=== PATIENT | female | born 1965 ===

== ENCOUNTER 2025-07-01 23:29 | Inpatient (IN) | payer OTHER, SELFPAY ==
--- OUTSIDE RECORDS SUMMARY | 2006-01-01 20:00 | XMS_ITS | Continuity of Care Document ---
Author Organization [facility] Address [address] [place] [address] Phone Care Team Providers Care Cooker Meal Name Role Phone Z-Converted, Provider Unavailable Unavailabl e Advance Directives Directive Yes / No Effective Date File Name No Information Encounters Encounter Description Practice Location Reason(s) For Visit Diagnoses Date Provider Providers Copied on Encounter [facility], [address] [place] [address],[place] [address], [place], [place], [id number], tel:[phone] [facility] Chronic hepatitis c without mention of hepatic comaOpioid type dependence, continuous useOtalgia, unspecified Apr- 6 Z-Converted Provider. . [facility], [address] [place] [address],[address], [place], [place], [id number], tel:[phone] Referral of patient without examination or treatment 6 No Information Family History Family Member Type Diagnosis Age At Onset No Information Immunizations Vaccine Date Status Comments HEPATITIS A ADULT administered Source: [place] Immunization Record Payers Payer name Insurance type Covered green party ID Authoriza tion(s) No Information Social History Type Description Quantity Date Captured Comments Sex Female Smoking Status No Information Chief Complaint And Reason For Visit No Information Reason For Referral Reason For Referral No Information History Of Present Illness Encounter Date Complaint History Of Prese nt Illness No Information Functional Status Date Functional Assessmen t No Information Instructions Date Instruction Additional Infor mation No Information Assessments Type Assessment Date No Information Patient Care Teams Name Effective Dates (start - stop) Status Members No Information
--- OUTSIDE RECORDS SUMMARY | 2025-06-30 10:27 | XMS_ITS | Encounter Summary ---
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 caring for herself secondary to severe depressive symptoms and active addiction. Her history is as noted above, she was made aware her cancer had returned (unclear exactly when) and has not been following up with oncology for treatment reporting she is too depressed and too deeply within active addiction to tend to her own physical needs. She was cleared medically, tox positive for benzo, cocaine and fentanyl. She denies benzo use and was administered Ativan in the ED. Evaluation took place in person, she had difficulty tolerating process reporting she was in a lot of physical discomfort related to withdrawal symptoms - specifically abdominal and muscle cramping. She was observed to be alert, oriented to person/place/time/situation. She appears older than stated age, curled up in position covered in blankets, rocking herself, tearful and in significant distress. She is unable to sit herself up on bed, unable to tolerate lights on, remains curled up and tearful throughout. She does her best to answer questions. She makes intermittent eye contact, oftenkeeping eyes shut as she rocks herself. Her speech is clear and not slurred. Thought process is linear, organized. She reports experiencing severe depressive episode in recent months since learning her cancer has returned while she has been in active addiction. She reports feeling no hope for herfuture but with that cries stating I don't want to , she admits fear of but this has notbeen enough to return to her providers for treatment. She describes severe anhedonia, stuck in a loop and can't stop myself no matter how bad it is . She is crying as she discusses her shame and guilt. She reports she is not intentionally refusing treatment, she reports she has simply not had the motivation, ambition or energy to go. She reports, I'm so sick with this and her active addiction has taken over her daily functioning, reports it is most severe it has ever been in all her history. She denies active SI, denies plan or intent. Reports sometimes wishes she would in her sleep, God would take me but does not want to be . She is afraid to , reports fear of painful , fear of what happens after . She denies HI or SIB, denies AVH. There is no evidence of psychosis or real, there is no paranoia or delusional thought content. She presents with fair insight and impaired judgment, she remains in behavioral control. She is appreciative of support, requests hannah- vera and more blankets. She reports she wants treatment, does not feel safe to go home at this time, reports she cannot stop using substances on her own and needs treatment and stabilization. She does not want to harm herself, she wants stabilization. Discussed this case with AOC and attending MD and at this time agree patient requires more support than traditional detox is able to support. She has history of dual-diagnosis treatment, inpatient treatment. At this time her symptoms of anhedonia and self-neglect associated with severe depressive episode and active addition put her in danger. She is voluntary for treatment. She will not be held on Section 12 but recommendation at this time is for inpatient dual-diagnosis treatment - she agrees to sign herself in for this level of care Recommendations: INPATIENT - Dual diagnosis - She is voluntary for treatment. She will not be held on Section 12 but recommendation at this time is for inpatient dual-diagnosis treatment - she agreesto sign herself in for this level of care. She may require a Section 12 for transport only. Intervention and Stabilization Services Requested: n/a Disposition Recommendation: Inpatient Level of Care Patient meets criteria for opioid use disorder (OUD): No Behavioral Health Diagnosis: F43.12 Complex PTSD, F33.2 Major depressive disorder, recurrent severe without psychotic features, F11.20 Opioid use disorder severe, F14.10: Cocaine abuse, uncomplicated Duration: Time Spent (min): 180 Discussed with Journalism Intern: Yes, Journalism Intern Name: ANGELICA Hamlin Discussed with Medical Team: Yes . Anil Elliott MD and RN's Elpidio Signed by: LISA Caal [1] (Not in a hospital admission) [2] [3] [4] No family history on file. documented in this encounter ED Notes * Maxine Carney RN - 07/01/2025 9:31 AM EDT Pt refusing to ambulate or care for herself, repeating, I can't. I can't. And shaking her head back and forth. IV removed * Bianca Alcaraz RN - 07/01/2025 1:50 AM EDT Pt resting w/ eyes closed - no acute distress noted w/ visible chest rise and fall visualized, resps easy and unlabored. Safety maintained w/ continuing safety watch. * Rosie Magdaleno RN - 06/30/2025 9:14 PM EDT This RN and co RN to room to meet patient. Pt resting comfortably with security watch at bedside. Vital signs reassessed and patient medicated per NOV. Pt educated to call with any further needs. * Ying Toney RN - 06/30/2025 5:51 PM EDT MD Meza at bedside, pt cleared to be off continuous monitoring d/t maintaining vital signs without any interventions. Pt refusing to get out of bed, keeps pulling blankets over face and saying pleaseleave me alone . Pt moved to room 30 at this time. Pt able to speak in full sentences throughout this transfer. IV catheter remaining in place. Not requiring security watch. * Ying Toney RN - 06/30/2025 11:26 AM EDT Attempted to obtain blood work at this time. Pt remains restless and extremely fidgety in bed. Pt reporting my body is on fire this RN attempted to roll pt on back multiple times to obtain EKG, pt non compliant and remains in left side position * Caroline Horne RN - 06/30/2025 10:27 AM EDT Pt biba from home after injecting heroin and cocaine. Pt was awake she thought she might pass out asked gus boyfiend to administer Narcan He gave her Narcan 4 mg IN. Pt arrives restless and vomitng being uncooperative. * Shiraz Ocasio MD - 06/30/2025 10:25 AM EDT Date of service: 06/30/2025 EMERGENCY DEPARTMENT ENCOUNTER Evaluated by: Shiraz Ocasio MD 252:38 PM RELEVANT HISTORY 60 y.o. female. Per EMS, boyfriend called 911 because patient had used coke and dope then stated that she might pass out, prompting her boyfriend to administer Narcan 4 mg. Upon EMS arrival, patient was agitated, refusing vital signs, refusing to answer questions. The patient is agitated and a very limited historian. She endorses cocaine and fentanyl use today. She denies alcohol or other drug use. She denies intentionality to hurt or kill herself. Per EMS, she is on Eliquis. Patient denies a fall. Although she reports that her pain is everywhere, she specifically denies having a headache, neck pain, or chest pain. She endorses some dyspnea. Denies any medication allergies. No further history is obtainable at this time. Addendum: Patient reassessed at 11:50 AM: Patient again endorses using cocaine and fentanyl. When asked why she is here, she states because I got Narcan. She reports that she has never required Narcan in the past. I feel so sick. She emphatically denies headache, chest pain, or recent fall or trauma. When asked why she is on Eliquis, she replies I cannot answer your questions right now. Herchief complaint at this time is nausea. PHYSICAL EXAM VITAL SIGNS: ED Triage Vitals Triage Vitals Group BP Pulse Resp Temp SpO2 Weight Height 0-10 Pain Score Munoz-Rhodes FACES Pain Rating Constitutional: Agitated and confused HENT: Airway intact. Eyes: Anicteric. Pupils 4 mm bilaterally and reactive Neck: Full ROM. No midline spinal tenderness Cardiovascular: Normal heart rate. Thorax & Lungs: Unlabored respirations. Normal bilateral breath sounds. abdomen: No peritoneal signs. Abdomen is nontender. Back: Full ROM. Extremities: Normal movement. Skin / Vascular: No cyanosis. Appears jaundiced. Neurologic: Alert and disoriented, confused, speech is minimal but articulate, face symmetric, moves all 4 extremities TESTS: LAB RESULTS: Results for orders placed or performed during the hospital encounter of 06/30/25 (from the past 24 hours) Urinalysis with Reflex to Urine Culture Specimen: Urine, Mid-stream Collection Result Value Ref Range Color, Urine Yellow Mallory, Yellow, Dark Yellow Clarity, Urine Clear Clear pH, Urine 7.5 5.0 - 9.0 Protein, Urine Negative Negative Glucose, Urine Negative Negative, 100 mg/dL Ketone, Urine Negative Negative Bilirubin, Urine Negative Negative Urobilinogen, Urine 1.0 mg/dL 0.2 mg/dL, 1.0 mg/dL Blood, Urine Trace (A) Negative Leukocyte Esterase, Urine Trace (A) Negative Nitrite, Urine Negative Negative Specific [place], Urine 1.017 1.005 - 1.035 White Blood Cells, Urine <2 <=4 /hpf Red Blood Cell, Urine 0-2 <=2 cells/HPF Bacteria Urine None Seen None Seen Squamous Epithelial Cells 3-5/HPF <=5/HPF /HPF Hyaline Cast 0-2 0 - 2 cast/LPF Drug Screen, Urine Result Value Ref Range Amphetamines Screen, Urine Negative Negative Barbiturates Screen, Urine Negative Negative Benzodiazepine Screen, Urine Positive (A) Negative Buprenorphine Screen, Urine Negative Negative Cannabinoids Screen, Urine Negative Negative Cocaine Metabolite Screen, Urine Positive (A) Negative Methadone Screen, Urine Negative Negative Methamphetamine, Urine Negative Negative Opiates Screen, Urine Negative Negative Oxycodone Screen, Urine Negative Negative TCA, Urine Negative Negative Creatinine, Gregory Urine 73.7 No Established Reference Range mg/dL Fentanyl Screen, Urine Positive (A) Negative Tramadol Screen, Urine Negative Negative 6-Aceytlmorphine Screen, Urine Negative Negative Phencyclidine Screen, Urine Negative Negative Fentanyl Screen, Urine Result Value Ref Range Fentanyl Screen, Urine Positive (A) Negative Tramadol Screen, Urine Result Value Ref Range Tramadol Screen, Urine Negative Negative 6-Acetylmorphine Screen, Urine Result Value Ref Range 6-Aceytlmorphine Screen, Urine Negative Negative RADIOLOGY: ECG 12 lead, to be obtained, chest pain Result Date: 06/30/2025 Sinus bradycardia with sinus arrhythmia First degree AV block Low voltage QRS Nonspecific T wave abnormality When compared with ECG of 02-Feb-2024 10:46, Nonspecific T wave abnormality now evident inInferolateral leads Confirmed by Preston Rainey ([id number]) on 06/30/2025 5:51:18 PM XR Chest 1 Vw Portable Result Date: 06/30/2025 EXAM DESCRIPTION: XR CHEST 1 VW PORTABLE. CLINICAL HISTORY: AMS; . COMPARISON: Radiograph 04 September 2019 TECHNIQUE: Portable frontal chest radiograph obtained FINDINGS: The patient is slightly rotated. No focal consolidation. No pneumothorax or pleural effusion. The heart size is mildly enlarged.There is central vascular engorgement. More peripherally there is also a slight patchy opacification in the bilateral lung bases. There is a probable hiatal hernia. Osseous structures are within normal limits. 1. Cardiomegaly and increased central vascular congestion. 2. Possible mild patchy opacities of thebilateral lung bases which could reflect an infiltrate versus additional engorged pulmonary vessels. CT Head WO IV Contrast Result Date: 06/30/2025 EXAM DESCRIPTION: CT HEAD WO CONTRAST CLINICAL HISTORY: 60 y/o F with AMS on Eliquis; COMPARISON: None TECHNIQUE: - Helical axial CT imaging was performed through the head without intravenous contrast. 2D reconstructions were performed. - MIPS Measure #359 Standard nomenclature was used for Dose Index registry submission. MIPS Measure #361 Patient Exposure to Ionizing Radiation was submitted to [place]'s Dose[employer]ise Dose Index Registry. Measure #436 Adaptive Iterative Dose Reduction (AIDR) andNEMA XR 25 DOSE check software, were used to reduce radiation dose to the patient. FINDINGS: Exam is slightly limited by beam hardening and streak artifact. - There is no evidence of acute intracranial hemorrhage, acute to subacute territorial infarction or intracranial mass lesion. - Mild periventricular and subcortical white matter hypodensity is noted in the cerebral hemispheres, which is nonspecific, but may be seen in the setting of chronic small vessel disease. - The ventricles, cisternsand sulci are normal in size and configuration. - There are scattered atherosclerotic calcifications of the carotid siphons and intradural vertebral arteries. - The orbits are unremarkable. - Mild mucosal thickening within the ethmoid air cells. Remainder of the paranasal sinuses and mastoid air cells are clear. - The bones and extracranial soft tissues are unremarkable. No acute intracranial hemorrhage, large territorial infarction, mass effect or midline shift. My EKG interpretation: Sinus bradycardia, ventricular rate 59, first-degree AV block, T wave inversion V5 and V6, T wave flattening in multiple leads elsewhere. No ST segment elevations. QTc 380 by automated measurement, QRS duration 100, no significant R wave in aVR My preliminary radiologic interpretation: No consolidation. If there is pulmonary vascular congestion, it is mild. ASSESSMENT/IMPRESSION: Altered mental status due to acute opiate withdrawal, precipitated by Narcan Considerations include undisclosed toxic ingestion, intracranial hemorrhage in the setting of anticoagulant use, meningitis, encephalitis, ischemic stroke, acute coronary syndrome, other metabolic abnormality, suicidality, noncardiogenic pulmonary edema TREATMENT: Controlled medications administered: Intravenous lorazepam Medications administered: Clonidine, normal saline MDM: Consideration for admission: Chest radiograph with possible mild vascular congestion. Both cardiogenic and noncardiogenic (Narcan induced) etiologies are considered. The patient is without any respiratory symptoms. She is laying flat, not tachypneic, lungs are clear. She is not hypoxemic. Review of non-ED Records Reviewed: Care Everywhere Review of non-ED Records Reviewed Comments: The patient is on Eliquis and methadone, according to the medication list from last year. This is unverified. Diagnostic Tests Considered but not performed: CTA Chest and CT Cspine Prescription Medication Considered but not prescribed Comments: Furosemide Care Affected by Social Determinants of Health: Substance use disorder Independent interpretation of tests: EKG and Chest X-ray Patient reassessed at shift end. She is somnolent but easily arousable to voice. She is now much improved, mental status seems clear to normal, continues to deny intentional OD or other illicit drug ingestion. She has no respiratory symptoms and lungs remain clear. Will attempt ambulation, and if unsteady, we will continue to observe and reassess until she is safe to be discharged. Care of patient transferred to Dr. Elliott at change of shift. Clinical Impression 1. Post traumatic stress disorder (PTSD) [F43.10] 2. MDD (major depressive disorder), recurrent severe, without psychosis (CMS- HCC) [F33.2] 3. Opioid use disorder, severe (CMS-HCC) [F11.20] 4. Suicidal ideation Sahil Meza MD 07/01/25 0716 The patient was signed out to me by Dr. Meza. They are resting comfortably on exam. My final assessment includes that the patient continues to require an inpatient level of care for their psychiatric needs and will be escalated to hospitalization. The patient was discharged from observation status at 2:38 PM on 07/01/25. They have been accepted at [facility]. Section 12 and transfer paperwork completed. The patient is aware of the plan. Shiraz Ocasio MD 07/01/25 1438 * Anil Elliott MD - 06/30/2025 10:25 AM EDT I assumed care of this patient pending reevaluation. Clinically, she now appears sober. As such, I went to discharge her but she told me that she would kill herself if she went back home. As such, I put her onto a section 12 and put in for a behavioral health evaluation. She then recanted the suicidality to multiple nurses and asked to talk to me again. She tells me now that she said this just because she wanted to not go home as she is concerned she may feel worse from withdrawal. She tells rebekah wants to go inpatient for detox. She was still evaluated by behavioral health who feels that she would benefit from a dual diagnosis bed so they are looking for one. The patient was signed out toDr. Deleon. Anil Elliott MD 07/01/25 0222 documented in this encounter Miscellaneous Notes * Psych Progress Note - LISA Ogden - 07/01/2025 3:27 AM EDT Arun to review in AM with [facility] d/t medical concerns. Referral faxed to [facility] for review. Bedsearchto be expanded as necessary. * Care Coordination Note - LISA Caal - 06/30/2025 10:14 PM EDT Notified Arun / Nasim patient requires inpatient dual treatment Completed [facility] boarding notification, sent with eval to [facility] documented in this encounter Plan of Treatment Not on file documented as of this encounter Procedures Procedure Name Priority Date/Time Associated Diagnosis Comments 6-ACETYLMORPHINE SCREEN, URINE STAT 06/30/2025 7:03 PM EDT DRUG SCREEN, URINE STAT 06/30/2025 7: 03 PM EDT TRAMADOL SCREEN, URINE STAT 7:03 PM EDT FENTANYL SCREEN, URINE STAT 7:03 PM EDT URINALYSIS WITH URINE CULTURE REFLEX STAT 06/30/2025 7:03 PM EDT XR PORTABLE CHEST 1 VW STAT 12:[address] HEAD WO CONTRAST STAT 06/30/2025 1 2:37 PM EDT TROPONIN (ALL) STAT 06/30/2025 12:31 PM EDT CBC AND DIFFERENTIAL STAT 06/30/2025 12:31 PM EDT BNP (B-TYPE NATRIURETIC PEPTIDE) Routine 06/30/2025 12:31 PM EDT TOXICOLOGY SCREEN, BLOOD STAT 06/30/2025 12:31 PM EDT YELLOW TOP STAT 06/30/2025 12:31 PM EDT LAVENDER TOP STAT 06/30/2025 12:31 PM EDT MINT GREEN TOP STAT 06/30/2025 12:31 PM EDT RED TOP STAT 06/30/2025 12:31 PM EDT LIGHT BLUE TOP STAT 06/30/2025 12:31 PM EDT RAINBOW DRAW STAT 06/30/2025 12:31 PM EDT CBC AND DIFFERENTIAL STAT 06/30/2025 12:31 PM EDT MAGNESIUM STAT 06/30/2025 12:31 PM EDT COMPREHENSIVE METABOLIC PANEL STAT 06/30/2025 12:31 PM EDT ECG 12-LEAD STAT 06/30/2025 11:38 AM EDT documented in this encounter Results * 6-Acetylmorphine Screen, Urine (06/30/2025 7:03 PM EDT) 6-Aceytlmorphine Screen, Urine Negative Negative [facility]ELL [id number] 06/30/2025 7:23 PM EDT [facility] Comment: 6-acetylmorphine cutoff is 10 ng/mL 6-acetylmorphine Add on order [id number] Opiates and Oxycodone, Urine, Confirmation, if confirmation desired. Results should be used for medical purposes only and not for any legal or employment evaluative purposes. Urine URINE SPECIMEN / Unknown Collection / Unknown 06/30/2025 7:03 PM EDT 06/30/2025 7:06 PM EDT Sahil Meza MD URINE ORDERABLES Final Result Performing Organization Address City/State/[facility] Co de Phone Number [facility] [address] [place] [address], [place] [phone] * Tramadol Screen, Urine (06/30/2025 7:03 PM EDT) Tramadol Screen, Urine Negative Negative CROWELL [id number] 06/30/2025 7:23 PM EDT [facility] Comment: Tramadol cutoff is 200 ng/mL Tramadol. Add-on order [id number] Tramadol Confirmation, Urine, if confirmation desired. Results should be used for medical purposes only and not for any legal or employment evaluative purposes. Urine URINE SPECIMEN / Unknown Collection / Unknown 06/30/2025 7:03 PM EDT 06/30/2025 7:06 PM EDT us Sahil Meza MD URINE ORDERABLES Final Result Performing Organization Address [facility] de Phone Number [address] [address], [place] [phone] * (ABNORMAL) Fentanyl Screen, Urine (06/30/2025 7:03 PM EDT) Fentanyl Screen, Urine Positive(A ) Negative Memoright [id number] 06/30/2025 7:23 PM EDT [facility] Urine URINE SPECIMEN / Unknown Collection / Unknown 06/30/2025 7:03 PM EDT 06/30/2025 7:06 PM EDT us Sahil Meza MD URINE ORDERABLES Final Result Performing Organization Address [facility] Phone Number [address] [address], [place] [phone] * (ABNORMAL) Drug Screen, Urine (06/30/2025 7:03 PM EDT) Amphetamines Screen, Urine Negative Negative 06/30/2025 7:25 PM EDT [facility] Barbiturates Screen, Urine Negative Negative 06/30/2025 7:25 PM EDT [facility] Benzodiazepine Screen, Urine Positive(A) Negative 06/30/2025 7:25 PM EDT [facility] Buprenorphine Screen, Urine Negative Negative 06/30/2025 7:25 PM EDT [facility] Cannabinoids Screen, Urine Negative Negative 06/30/2025 7:25 PM EDT [facility] Cocaine Metabolite Screen, Urine Positive(A) Negative 06/30/2025 7:25 PM EDT [facility] Methadone Screen, Urine Negative Negative 06/30/2025 7:25 PM EDT [facility] Methamphetamine, Urine Negative Negative 06/30/2025 7:25 PM EDT [facility] Opiates Screen, Urine Negative Negative 06/30/2025 7:25 PM EDT [facility] Oxycodone Screen, Urine Negative Negative 06/30/2025 7:25 PM EDT [facility] TCA, Urine Negative Negative 06/30/2025 7:25 PM T [facility] Creatinine, Gregory Urine 73.7 No Established Reference Range mg/dL [facility] [id number] 06/30/2025 7:25 PM T [facility] Fentanyl Screen, Urine Positive(A) Negative [facility]ELL [id number] 06/30/2025 7:25 PM T [facility] Tramadol Screen, Urine Negative Negative [facility] [id number] 06/30/2025 7:25 PM T [facility] 6-Aceytlmorphine Screen, Urine Negative Negative [facility] [id number] 06/30/2025 7:25 PM T [facility] Phencyclidine Screen, Urine Negative Negative 06/30/2025 7:25 PM T [facility] Urine URINE SPECIMEN / Unknown Collection / Unknown 06/30/2025 7:03 PM EDT 06/30/2025 7:[address] [facility] - 06/30/2025 7:25 PM EDT Specimen analysis was performed without chain of custody handling. Urine drug screen results should be used for medical purposes only and not for any legal or employment evaluative purposes. Amphetamines cutoff is 500 ng/mL. Barbiturates cutoff is 200 ng/mL. Benzodiazepines cutoff is 150 ng/mL. Buprenorphine cutoff is 300 ng/mL. Cannabinoids cutoff is 50 ng/mL. Cocaine cutoff is 150 ng/mL. Methadone cutoff is 200 ng/mL. Methamphetamine cutoff is 500 ng/ml Opiates cutoff is 100 ng/mL. Oxycodone cutoff is 100 ng/mL. Phencyclidine (PCP) cutoff is 25 ng/mL TCA cutoff is 300 ng/mL Urine results are presumptive based only on screening methods and have not been confirmed by a second method. These results should be used only by physicians to render diagnosis, treatment, or to monitor progress of medical conditions. The assay is not intended to monitor compliance or absinence. Thresholds are established by the test boilermaker industrial boilers. Drug levels below thresholds will be reported as negative. This is an antibody-antigen methods screening test and has the potential for false positive results caused by other drugs, medications and supplements with similar structures, if results are discordant clinically. us Sahil Mzea MD URINE ORDERABLES Final Result [facility] [address] [place] [address], [place] [phone] * (ABNORMAL) Urinalysis with Reflex to Urine Culture (06/30/2025 7:03 PM EDT) Color, Urine Yellow Mallory, Yellow, Dark Yellow 06/30/2025 7:27 PM EDT [facility] Clarity, Urine Clear Clear 06/30/2025 7:27 PM EDT [facility] pH, Urine 7.5 5.0 - 9.0 06/30/2025 7:27 PM EDT [facility] Protein, Urine Negative Negative 06/30/2025 7:[facility] Glucose, Urine Negative Negative, 100 mg/dL 06/30/2025 7:27 PM EDT [facility] Ketone, Urine Negative Negative 06/30/2025 7:27 PM EDT [facility] Bilirubin, Urine Negative Negative 06/30/2025 7:27 PM EDT [facility] Urobilinogen, Urine 1.0 mg/dL 0.2 mg/dL, 1.0 mg/dL 06/30/2025 7:27 [facility] [facility] Blood, Urine Trace(A) Negative 06/30/2025 7:27 [facility] Leukocyte Esterase, Urine Trace(A) Negative 06/30/2025 7:27 PM EDT [facility] Nitrite, Urine Negative Negative 06/30/2025 7:27 PM EDT [facility] Specific [place], Urine 1.017 1.005 - 1.035 06/30/2025 7:27 PM EDT [facility] White Blood Cells, Urine <2 <=4 /hpf 06/30/2025 7:27 PM [facility] Red Blood Cell, Urine 0-2 <=2 cells/HPF 06/30/2025 7:27 PM [facility] Bacteria Urine None Seen None Seen 06/30/2025 7:27 PM EDT [facility] Squamous Epithelial Cells 3-5/HPF <=5/HPF /HPF 06/30/2025 7:27 PM EDT [facility] Hyaline Cast 0-2 0 - 2 cast/LPF 06/30/2025 7:27 PM EDT [facility] Urine MID-STREAM URINE SPECIMEN / Unknown Collection / Unknown 06/30/2025 7:03 PM EDT 06/30/2025 7:06 PM EDT Sahil Meza MD URINE ORDERABLES Final Result [facility] [address] [place] [address], [place] [phone] * XR Chest 1 Vw Portable (06/30/2025 12:58 PM EDT) Anatomical Region Laterality Modality Chest Digital Radiogra phy 06/30/2025 12:5 9 PM EDT Impressions 06/30/2025 1:02 PM EDT 1. Cardiomegaly and increased central vascular congestion. 2. Possible mild patchy opacities of the bilateral lung bases which could reflect an infiltrate versus additional engorged pulmonary vessels. Narrative 06/30/2025 1:02 PM EDT EXAM DESCRIPTION: XR CHEST 1 VW PORTABLE. CLINICAL HISTORY: AMS; . COMPARISON: Radiograph 04 September 2019 TECHNIQUE: Portable frontal chest radiograph obtained FINDINGS: The patient is slightly rotated. No focal consolidation. No pneumothorax or pleural effusion. The heart size is mildly enlarged. There is central vascular engorgement. More peripherally there is also a slight patchy opacification in the bilateral lung bases. There is a probable hiatal hernia. Osseous structures are within normal limits. Procedure Note Andry Samson MD - 06/30/2025 EXAM DESCRIPTION: XR CHEST 1 VW PORTABLE. CLINICAL HISTORY: AMS; . COMPARISON: Radiograph 04 September 2019 TECHNIQUE: Portable frontal chest radiograph obtained FINDINGS: The patient is slightly rotated. No focal consolidation. No pneumothorax or pleural effusion. The heart size is mildly enlarged. There is central vascular engorgement. More peripherally there is also a slight patchy opacification in the bilateral lung bases. There is a probable hiatal hernia. Osseous structures are within normal limits. IMPRESSION: 1. Cardiomegaly and increased central vascular congestion. 2. Possible mild patchy opacities of the bilateral lung bases which could reflect an infiltrate versus additional engorged pulmonary vessels. us Sahil Meza MD IMG DIAGNOSTIC IMAGING ORDERABLE S Final Result * CT Head WO IV Contrast (06/30/2025 12:37 PM EDT) Anatomical Region Laterality Modality Head Computed Tomogra phy 06/30/2025 12:3 9 PM EDT Impressions 06/30/2025 12:42 PM EDT No acute intracranial hemorrhage, large territorial infarction, mass effect or midline shift. Narrative 06/30/2025 12:42 PM EDT EXAM DESCRIPTION: CT HEAD WO CONTRAST CLINICAL HISTORY: 60 y/o F with AMS on Eliquis; COMPARISON: None TECHNIQUE: - Helical axial CT imaging was performed through the head without intravenous contrast. 2D reconstructions were performed. - MIPS Measure #359 Standard nomenclature was used for Dose Index registry submission. MIPS Measure #361 Patient Exposure to Ionizing Radiation was submitted to [place] Dose Index Registry. Measure #436 Adaptive Iterative Dose Reduction (AIDR) and NEMA XR 25 DOSE check software, were used to reduce radiation dose to the patient. FINDINGS: Exam is slightly limited by beam hardening and streak artifact. - There is no evidence of acute intracranial hemorrhage, acute to subacute territorial infarction or intracranial mass lesion. - Mild periventricular and subcortical white matter hypodensity is noted in the cerebral hemispheres, which is nonspecific, but may be seen in the setting of chronic small vessel disease. - The ventricles, cisterns and sulci are normal in size and configuration. - There are scattered atherosclerotic calcifications of the carotid siphons and intradural vertebral arteries. - The orbits are unremarkable. - Mild mucosal thickening within the ethmoid air cells. Remainder of the paranasal sinuses and mastoid air cells are clear. - The bones and extracranial soft tissues are unremarkable. Procedure Note Lv Jarrell DO - 06/30/2025 EXAM DESCRIPTION: CT HEAD WO CONTRAST CLINICAL HISTORY: 60 y/o F with AMS on Eliquis; COMPARISON: None TECHNIQUE: - Helical axial CT imaging was performed through the head without intravenous contrast. 2D reconstructions were performed. - [facility] Measure #359 Standard nomenclature was used for Dose Index registry submission. [facility] Measure #361 Patient Exposure to Ionizing Radiation was submitted to [place]'s Dose[employer] Dose Index Registry. Measure #436 Adaptive Iterative Dose Reduction (AIDR) and NEMA XR 25 DOSE check software, were used to reduce radiation dose to the patient. FINDINGS: Exam is slightly limited by beam hardening and streak artifact. - There is no evidence of acute intracranial hemorrhage, acute to subacute territorial infarction or intracranial mass lesion. - Mild periventricular and subcortical white matter hypodensity is noted in the cerebral hemispheres, which is nonspecific, but may be seen in the setting of chronic small vessel disease. - The ventricles, cisterns and sulci are normal in size and configuration. - There are scattered atherosclerotic calcifications of the carotid siphons and intradural vertebral arteries. - The orbits are unremarkable. - Mild mucosal thickening within the ethmoid air cells. Remainder of the paranasal sinuses and mastoid air cells are clear. - The bones and extracranial soft tissues are unremarkable. IMPRESSION: No acute intracranial hemorrhage, large territorial infarction, mass effect or midline shift. us Sahil Meza MD IMG CT ORDERABLES Final Result * BNP (B-Type Natriuretic Peptide) (06/30/2025 12:31 PM EDT) Beta-Natriureti c Peptide (BNP) <10 <120 pg/mL CROWELL [id number] 06/30/2025 3:10 PM EDT [facility] Comment:BNP may be falsely e levated in patients on the medication Entresto. For these patients, NT-proBNP, [id number], will more reliably reflect the status of therapy. Blood PERIPHERAL BLOOD SPECIMEN / Unknown Venipuncture / Unknown 06/30/2025 12:31 PM EDT 06/30/2025 12:33 PM EDT us Sahil Meza MD LAB BLOOD ORDERABLES Final Resul t [facility] [address] [place] [address], [place] [phone] * Gold Top (06/30/2025 12:31 PM EDT) Gold Top Tube Received 06/30/2025 2:02 PM EDT [facility] Blood PERIPHERAL BLOOD SPECIMEN / Unknown Venipuncture / Unknown 06/30/2025 12:31 PM EDT 06/30/2025 12:33 PM EDT us Sahil Meza MD LAB BLOOD ORDERABLES Final Resul t [facility] [address] [place] [address], [place] [phone] * Lavender Top (06/30/2025 12:31 PM EDT) Lav Top Tube Received 06/30/2025 2:02 PM EDT [facility] Blood PERIPHERAL BLOOD SPECIMEN / Unknown Venipuncture / Unknown 06/30/2025 12:31 PM EDT 06/30/2025 12:33 PM EDT us Sahil Meza MD LAB BLOOD ORDERABLES Final Resul t Performing Organization Address City/[facility]/ZIP Co de Phone Number [address] [address], [place] [phone] * Mint Green Top (06/30/2025 12:31 PM EDT) Pathologist [facility] PST Tube Received 06/30/2025 2:02 PM EDT [facility] Blood PERIPHERAL BLOOD SPECIMEN / Unknown Venipuncture / Unknown 06/30/2025 12:31 PM EDT 06/30/2025 12:32 PM EDT us Sahil Meza MD LAB BLOOD ORDERABLES Final Resul t Performing Organization Address City/[facility]/ZIP Co de Phone Number [facility] [address] [place] [address], [place] [phone] * Red Top (06/30/2025 12:31 PM EDT) Red Top Tube Received 06/30/2025 2:02 PM EDT [facility] Blood PERIPHERAL BLOOD SPECIMEN / Unknown Venipuncture / Unknown 06/30/2025 12:31 PM EDT 06/30/2025 12:33 PM EDT us Sahil Meza MD LAB BLOOD ORDERABLES Final Resul t Performing Organization Address City/[facility]/ZIP Co de Phone Number [facility] [address] [place] [address], [place] [phone] * Blue Top (06/30/2025 12:31 PM EDT) Pathologist [facility] Blue Top Tube Received 06/30/2025 2:02 PM EDT [facility] Blood PERIPHERAL BLOOD SPECIMEN / Unknown Venipuncture / Unknown 06/30/2025 12:31 PM EDT 06/30/2025 12:33 PM EDT us Sahil Meza MD LAB BLOOD ORDERABLES Final Resul t Performing Organization Address [facility]/ZIP Co de Phone Number [facility] [address] [place] [address], [place] [phone] * (ABNORMAL) CBC and Differential (06/30/2025 12:31 PM EDT) Pathologist [facility] WBC 6.45 4.00 - 11.00 K/uL 06/30/2025 12:42 PM EDT [facility] RBC 4.40 4.00 - 5.20 M/uL 06/30/2025 12:42 PM EDT [facility] Hemoglobin 9.0(L) 12.0 - 15.0 g/dL 06/30/2025 12:42 PM EDT [facility] Hematocrit 29.6(L) 36.0 - 45.0 % 06/30/2025 12:42 PM EDT [facility] MCH 20.5(L) 23.0 - 37.0 pg 06/30/2025 12:42 PM EDT [facility] MCHC 30.4 29.0 - 38.0 g/dL 06/30/2025 12:42 PM [facility] MCV 67(L) 82 - 98 fL 06/30/2025 12:42 PM [facility] RDW 15.4(H) 11.5 - 15.0 % 06/30/2025 12:42 PM [facility] Platelet Count 292 150 - 450 K/uL 06/30/2025 12:42 PM [facility] MPV 8.6 8.0 - 14.0 fL 06/30/2025 12:42 PM [facility] Neutrophil 85.5 % 06/30/2025 12:42 PM [facility] Lymphocyte 8.8 % 06/30/2025 12:42 PM [facility] Monocyte 4.2 % 06/30/2025 12:42 PM [facility] Eosinophil 0.5 % 06/30/2025 12:42 PM [facility] Basophil 0.5 % 06/30/2025 12:42 PM [facility] Immature Granulocyte ([place]ap[place], Myelo, Promyelocyte) 0.5 % 06/30/2025 12:42 PM [facility] Absolute Neutrophil Count 5.52 1.50 - 7.70 K/uL 06/30/2025 12:42 PM [facility] Absolute Immature Granulocyte ([place]ap[place], Myelo, Promyelocyte) 0.03 0.00 - 0.09 K/uL 06/30/2025 12:42 PM [facility] Absolute Lymphocyte Count 0.57(L) 1.00 - 5.00 K/uL 06/30/2025 12:42 PM [facility] Absolute Monocyte Count 0.27 0.10 - 1.00 K/uL 06/30/2025 12:42 PM [facility] Absolute Eosinophil Count 0.03 0.00 - 0.70 K/uL 06/30/2025 12:42 PM [facility] Absolute Basophil Count 0.03 0.00 - 0.20 K/uL 06/30/2025 12:42 PM [facility] Blood PERIPHERAL BLOOD SPECIMEN / Unknown Venipuncture / Unknown 06/30/2025 12:31 PM EDT 06/30/2025 12:33 PM EDT us Sahil Meza MD LAB BLOOD ORDERABLES Final Resul t Performing Organization Address [facility] de Phone Number [facility] [address] [place] [address], [place] [phone] * (ABNORMAL) Toxicology Screen, Blood (06/30/2025 12:31 PM EDT) [facility] Acetaminophen Result,Blood <3(L) Therapuetic Range 10-30 ug/mL [place] [id number] 06/30/2025 1:15 PM EDT [facility] Alcohol <10 <10 mg/dL [address] 06/30/2025 1:15 PM EDT [facility] Salicylate Level, Blood <5(L) 15 - <30 mg/dL [address] 06/30/2025 1:15 PM EDT [facility] Blood PERIPHERAL BLOOD SPECIMEN / Unknown Venipuncture / Unknown 06/30/2025 12:31 PM EDT 06/30/2025 12:33 PM EDT us Sahil Meza MD LAB BLOOD ORDERABLES Final Resul t Performing Organization Address [facility] de Phone Number [facility] [address] [place] [address], [place] [phone] * Troponin (once) (06/30/2025 12:31 PM EDT) [facility] Troponin I <0.01 <0.08 ng/mL [place] [id number] 06/30/2025 1:15 PM EDT [facility] Comment: The troponin upper reference value was set at 0.08 ng/mL by pat with the associated machine tool builder after concurrent and retrospective clinical review. New reporting guidelines were published on 06/02/2014 (see below). Our value of 0.08 ng/dL exceeds the 99th percentile and 3 SD of criteria #1 and 2, and therefore, these criteria have been met. Because an elevation in the initial troponin value could be due to conditions other than acute myocardial necrosis, there should be a serial increase or decrease of 20% or more on a subsequent troponin specimen. [place] EA, et al. 2014 AGA/ACC NSTE-ACS Guideline 1. A troponin value above the 99th percentile of the upper reference level is required. Additionally, evidence for a serial increase or decrease >=20% is required if the initial value is elevated (21,178). 2. For any troponin values below or close to the 99th percentile, evidence for acute myocardial necrosis is indicated by a change of >=3 standard deviations of the variation around the initial value as determined by the individual laboratory (21,179). 3. Clinical laboratory reports should indicate whether significant changes in the cardiac troponin values for the particular assay has occurred. Blood PERIPHERAL BLOOD SPECIMEN / Unknown Venipuncture / Unknown 06/30/2025 12:31 PM EDT 06/30/2025 12:32 PM EDT us Sahil Meza MD LAB BLOOD ORDERABLES Final Resul t Performing Organization Address [facility] de Phone Number [address] [address], [place] [phone] * Magnesium (06/30/2025 12:31 PM EDT) Pathologist [facility] Magnesium, Blood 1.8 1.8 - 2.4 mg/dL CROWELL [id number] 06/30/2025 1:13 PM EDT [facility] Blood PERIPHERAL BLOOD SPECIMEN / Unknown Venipuncture / Unknown 06/30/2025 12:31 PM EDT 06/30/2025 12:32 PM EDT us Sahil Meza MD LAB BLOOD ORDERABLES Final Resul t Performing Organization Address [facility] de Phone Number [facility] [address] [place] [address], [place] [phone] * (ABNORMAL) Comprehensive Metabolic Panel (06/30/2025 12:31 PM EDT) Pathologist [facility] Sodium 138 134 - 144 mmol/L CROWELL [id number] 06/30/2025 1:13 PM EDT [facility] Potassium 3.5 3.2 - 5.1 mmol/L [place] [id number] 06/30/2025 1:13 PM [facility] Chloride 101 97 - 109 mmol/L [address] 06/30/2025 1:13 PM [facility] Total CO2/Bicarbonate 28 20 - 32 mmol/L [address] 06/30/2025 1:13 PM [facility] Anion Gap 9 5 - 15 mmol/L [address] 06/30/2025 1:13 PM [facility] Anion Gap [address] 06/30/2025 1:13 PM [facility] BUN 13 7 - 20 mg/dL [address] 06/30/2025 1:13 PM [facility] Creatinine, Blood 0.71 0.60 - 1.10 mg/dL [address] 06/30/2025 1:13 PM [facility] Glucose, Blood 86 70 - 110 mg/dL [address] 06/30/2025 1:13 PM [facility] Calcium 8.8 8.5 - 10.5 mg/dL [address] 06/30/2025 1:13 PM [facility] Total Protein 8.2 6.1 - 8.2 g/dL [address] 06/30/2025 1:13 PM [facility] Albumin, Blood 3.8 3.4 - 5.0 g/dL [address] 06/30/2025 1:13 PM [facility] Globulin Result 4.4(H) 2.0 - 4.0 g/dL [address] 06/30/2025 1:13 PM [facility] AST (SGOT) 18 15 - 37 U/L [address] 06/30/2025 1:13 PM [facility] ALT (SGPT) 10 0 - 55 U/L [address] 06/30/2025 1:13 PM [facility] Alkaline Phosphatase 64 40 - 150 U/L [address] 06/30/2025 1:13 PM [facility] Total Bilirubin 0.9 0.2 - 1.2 mg/dL [address] 06/30/2025 1:13 PM [facility] Estimated GFR(CKD-EPI) 97 >=60 mL/min/BSA [address] 06/30/2025 1:13 PM EDT [facility] Blood PERIPHERAL BLOOD SPECIMEN / Unknown Venipuncture / Unknown 06/30/2025 12:31 PM EDT 06/30/2025 12:32 PM EDT us Sahil Meza MD LAB BLOOD ORDERABLES Final Resul t Performing Organization Address [facility] de Phone Number [facility] [address] [place] [address], [place] [phone] * ECG 12 lead, to be obtained, chest pain (06/30/2025 11:38 AM EDT) [facility] Ventricular Heart Rate 59 BPM EKG WIN QRSD Interval 100 ms EKG WIN QT Interval 384 ms EKG WIN QTC Interval 380 ms EKG WIN R Davis 47 degrees EKG WIN T Wave Davis 70 degrees EKG WIN 06/30/2025 11:3 8 AM EDT 06/30/2025 5:51 PM EDT Narrative EKG WIN - 06/30/2025 5:51 PM EDT Sinus bradycardia with sinus arrhythmia First degree AV block Low voltage QRS Nonspecific T wave abnormality When compared with ECG of 02-Feb-2024 10:46, Nonspecific T wave abnormality now evident in Inferolateral leads Confirmed by Preston Rainey ([id number]) on 06/30/2025 5:51:18 PM Procedure Note Preston Rainey MD - 06/30/2025 Sinus bradycardia with sinus arrhythmia First degree AV block Low voltage QRS Nonspecific T wave abnormality When compared with ECG of 02-Feb-2024 10:46, Nonspecific T wave abnormality now evident in Inferolateral leads Confirmed by Preston Rainey ([id number]) on 06/30/2025 5:51:18 PM us Sahil Meza MD ECG ORDERABLES Final Result Performing Organization Address [facility] Co de Phone Number EKG WIN [address] [place] [address] documented in this encounter Visit Diagnoses Diagnosis Post traumatic stress disorder (PTSD) [F43.10]- Primary MDD (major depressive disorder), recurrent severe, without psychosis (CMS-HCC) [F33.2] Opioid use disorder, severe ([facility]) [F11.20] Suicidal ideation documented in this encounter Administered Medications Inactive Administered Medications - up to 3 most recent administrations Medication Order MAR Action Action Date Dose Rate Site 0.9% sodium chloride (NS) BOLUS 1,000 mL 1,000 mL, Intravenous, Once, On Sun06/30/25 at 1036, For 1 dose, STAT, Administer over 1 Hours New Bag 06/30/2025 1:04 PM EDT 1,000 mL 1000 mL/hr cloNIDine (CATAPRES) tablet 0.1 mg 0.1 mg, Oral, Once, 1 dose, On Sun06/30/25 at 1134 Given 06/30/2025 12:20 PM EDT 0.1 mg cloNIDine (CATAPRES) tablet 0.1 mg 0.1 mg, Oral, Once, 1 dose, On Sun06/30/25 at 2035 Given 06/30/2025 9:22 PM EDT 0.1 mg cloNIDine (CATAPRES) tablet 0.1 mg 0.1 mg, Oral, Once, 1 dose, On Sun06/30/25 at 2357 Given 07/01/2025 12:06 AM EDT 0.1 mg ketorolac (TORADOL) injection 15 mg 15 mg, Intravenous, Once, On Sun06/30/25 at 2357, For 1 dose, If given IV, administer over a minimum of 15 seconds. If ordered PRN for pain, the patient may request administration of a different (less potent) prescribed medication, or a lower prescribed dose of the same medication. Given 07/01/2025 12:06 AM EDT 15 mg LORazepam (ATIVAN) injection 1 mg 1 mg, Intramuscular, Once, 1 dose, On Sun06/30/25 at 1035 Given 06/30/2025 10:35 AM EDT 1 mg Right Ventrogluteal documented in this encounter Active and Recently Administered Medications Times are shown in EDT. Scheduled Medication Order 06/29/2025 06/30/2025 07/01/2025 0.9% sodium chloride (NS) BOLUS 1,000 mL (COMPLETED) 1,000 mL, Intravenous, Once, On Sun06/30/25 at 1036, For 1 dose, STAT, Administer over 1 Hours 1304 (New Bag - Provider: Ying Toney, RN)1430 (Stopped - Provider: Ying Toney RN) acetaminophen (TYLENOL) tablet 975 mg 975 mg, Oral, Once, 1 dose, On Sun06/30/25 at 2357 0017 (Not Given - Provider: Bianca Alcaraz RN - Reason: Patient Refused) cloNIDine (CATAPRES) tablet 0.1 mg (COMPLETED) 0.1 mg, Oral, Once, 1 dose, On Sun06/30/25 at 1134 1220 (Given - Provider: Ying Toney RN) cloNIDine (CATAPRES) tablet 0.1 mg (COMPLETED) 0.1 mg, Oral, Once, 1 dose, On Sun06/30/25 at 2035 2122 (Given - Provider: Roise Magdaleno RN - Comment: Barcode unreadable on rover, verifed with TAYLOR Valenzuela) cloNIDine (CATAPRES) tablet 0.1 mg (COMPLETED) 0.1 mg, Oral, Once, 1 dose, On Sun06/30/25 at 2357 0006 (Given - Provid er: Bianca Alcaraz RN) ketorolac (TORADOL) injection 15 mg (COMPLETED) 15 mg, Intravenous, Once, On Sun06/30/25 at 2357, For 1 dose, If given IV, administer over a minimum of 15 seconds. If ordered PRN for pain, the patient may request administration of a different (less potent) prescribed medication, or a lower prescribed dose of the same medication. 0006 (Given - Provid er: Bianca Alcaraz RN) LORazepam (ATIVAN) injection 1 mg (COMPLETED) 1 mg, Intramuscular, Once, 1 dose, On Sun06/30/25 at 1035 1035 (Given - Provider: Caroline Horne, TAYLOR)1038 (Override Pull - Provider: Caroline Horne, TAYLOR) documented in this encounter Care Teams Document Review Specialist Relationship Specialty Start Date End Date Mirella Bobby MD [address] [place] [address] PCP - General Internal Medicine 02/02/24 documented as of this encounter
--- OUTSIDE RECORDS SUMMARY | 2025-07-01 23:37 | XMS_ITS ---
Author Organization [employer] [facility] iance Address [address] [place] [address] Care Team Providers Care Casting Tester Name Role Phone None Unavailable Unavailable Raisa Merritt MD Primary Care Provider [phone] Active Problems Problem Noted Date Diagnosed Date Hypomagnesemia 12/28/2021 Anemia, unspecified 12/27/2021 Lung nodule 12/14/2021 Overview (12/14/2021): 10/12/2021 CT Neck: 3 mm right upper lobe pulmonary nodule, unchanged from recent chest CTA. If the patient is high risk for lung cancer recommend an optional chest CT in 12 months per the Fleischner guidelines. Smoking trying to quit 11/25/2021 Overview (01/09/2022): TTP Referred for outreach 07/2021 SH Hepatitis C antibody test positive 11/15/2021 Squamous cell carcinoma of base of tongue 2021 Cancer Staging:Clinical stage from 11/15/2021:Stage I(cT1, cN1, cM0, p16+) - Signed by Felton Rodriguez MD on 11/15/2021 Squamous cell carcinoma of head and neck 022 Assessment & Plan (10/26/2021 9:20 AM EST): Diagnosed officially 10/25/2021 after FNA of enlarged lymph node/lump on the anterior neck. long-term current use of anticoagulant therapy 0 10/04/2021 Overview (10/04/2021): PE 08/02/21 - on Eliquis. 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 Unclear if provoked or unprovoked. Messaged PCP to send e-consult to heme to review duration. Due to significant delays in reaching pt (no-showed x4) - initial DOAC education provided today 10/04/21 - Patrick Gentile, PharmD. Anterior cervical lymphadenopathy 08/02/2021 Pulmonary embolism 07/28/2021 Assessment & Plan (10/26/2021 9:21 AM EST): 10/26/21 Previously thought to be 2x unprovoked, now maybe due to underlying malignancy (head and neck SCC) Heroin dependence 07/22/2012 Depression 07/22/2012 Skin disorder 04/07/2010 Current Treatment and Therapy Plans Lung, Gastric: CARBOplatin, PAClitaxel weekly during RTX* Plan Start Date: 11/20/2021 Plan Provider:Felton Rodriguez MD Linked Problems Squamous cell carcinoma of h ead and neckSquamous cell carcinoma of base of tongue (HCC) Treatment Medications CARBOplatin (PARAPLATIN) raf mo infusion (by mg/m2)dexamethasone (DECADRON)PACLItaxel (taxol)PACLItaxel (TAXOL) chemo infusion Past Treatment and Therapy Plans No past plan information found. Lifetime Dose Tracking * Chemical Lifetime Dose Automatic Entry Manual Entr y DLP 812 mGy-cm. 812 mGy-cm. 0 mGy-cm. Radiation Effective Dose 15.5 mGy 15.5 mGy 0 m Gy CTDIVol Maximum 37 mGy 37 mGy 0 mGy CTDIVol Minimum 28.8 mGy 28.8 mGy 0 mGy
--- OUTSIDE RECORDS SUMMARY | 2025-07-01 23:37 | XMS_ITS | Encounter Summary ---
Author Organization [employer] iance Address [address] [place] [address] Care Team Providers Care Real Estate Rental Agent Name Role Phone None Unavailable Unavailable Raisa Merritt MD Primary Care Provider [phone] Encounter Details Date Type Department Care Team (Late st Contact Info) Description 04/21/[address] [place], [place] [id number] Raisa Merritt MD [address] [place] [id number] Social History Tobacco Use Types Packs/Day Years Used Date Smoking Tobacco: Every Day Cigarettes 2 5 Smokeless Tobacco: Never Alcohol Use Standard Drinks/Week Comments No 0 (1 standard drink = 0.6 oz pur e alcohol) pt denies alcohol use. Comments No Sex and Gender Information Value Date Recorded Sex Assigned at Not on file Legal Sex Female 10:28 PM EDT Gender Identity Female 09/13/2023 11:44 AM EST Sexual Orientation Straight 09/13/2023 11 :44 AM EST documented as of this encounter Functional Status * (RETIRED) Are you deaf or do you have difficulty hearing? Answer Date of Assessment Author No 07/27/2021 2:11 PM Genna Espinoza RN * (RETIRED) Are you blind or do you have difficulty seeing? Answer Date of Assessment Author No 07/27/2021 2:11 PM Genna Espinoza RN * (RETIRED) Do you have difficulty walking or climbing stairs? Answer Date of Assessment Author No 07/27/2021 2:11 PM Genna Espinoza RN * (RETIRED) Do you have difficulty dressing or bathing? Answer Date of Assessment Author No 07/27/2021 2:11 PM Genna Espinoza RN * (RETIRED) Because of a physical, mental, or emotional condition, do you have difficulty doing errands such as visiting a doctor's office or shopping? Answer Date of Assessment Author No 07/27/2021 2:11 PM Genna Espinoza RN documented as of this encounter Mental Status * (RETIRED) Because of a physical, mental, or emotional condition, do you have serious difficulty concentrating, remembering, or making decisions? Answer Entry Date Author No 07/27/2021 2:11 PM Genna Espinoza RN documented in this encounter Miscellaneous Notes * Telephone Encounter - Aleisha Wiggins - 04/21/2025 3:46 PM EDT I have attempted to contact this patient by phone with the following results: no answer. If patient calls back, please assist this patient with scheduling the following: In person or televisit per patient preference, for CPAP issue, time frame: next available, with PCP, if appointment not available: Schedule with alternate provider documented in this encounter Plan of Treatment Not on file documented as of this encounter Goals Goal Patient Goal Type Associated Problems Recent Progress Patient-Stated? Author Quit smoking / using tobacco Lifestyle (Healthcare Team Goals) No Joselin Romero documented as of this encounter Visit Diagnoses Not on filedocumented in this encounter Care Teams Real Estate Rental Agent Relationship Specialty Start Date End Date None PCP - Insurance PCP 06/10/18 Raisa Merritt MD [address] [place] [address], [place] [address] PCP - General Family Medicine 02/13/24 documented as of this encounter
--- OUTSIDE RECORDS SUMMARY | 2025-07-01 23:37 | XMS_ITS | Encounter Summary ---
Author Organization [facility] iance Address [address] [place] [address] Care Team Providers Care Material Requirements Worker Name Role Phone None Unavailable Unavailable Mile Kitchen MD Primary Care Provider [phone] Raisa Merritt MD Primary Care Provider [phone] Encounter Details Date Type Department Care Team (Late st Contact Info) Description 12/02/2021 Telephone [facility] - [facility] [address] [facility] - [address]nd [place] [address] Danisha Patricio, PharmD [address] [place] [address] Social History Tobacco Use Types Packs/Day Years [...] Orientation Straight 09/13/2023 11 :44 AM EST COVID-19 Exposure Response Date Recorded In the last 10 days, have yo u been in contact with someone who was confirmed or suspected to have Coronavirus/COVID-19? No / Unsure 12/05/2021 8:27 AM EDT documented as of this encounter Functional Status [...] encounter Miscellaneous Notes * Telephone Encounter - Danisha Polk PharmD - 12/02/2021 1:09 PM EDT Patient was available for preinfusion call today. Stated that she is doing well, however feeling very fatigued. Will be able to present to her next infusion appointment on 12/05/21. Has enough pre-infusion meds at home, but out of lorazepam (pended new rx to provider). Will continue to monitor and follow-up with patient following infusion. documented in this encounter Plan of Treatment Not on file documented as of this encounter Visit Diagnoses Not on filedocumented in this encounter Additional Health Concerns Infection Onset Date Last Indicated Resolved Time Rule out RSV 01/02/2022 01/02/2022 01/02/2022 5:32 PM EDT Rule out Influenzae 01/02/2022 01/02/2022 01/03/20 5:32 PM EDT Rule out COVID-19 01/02/2022 01/02/2022 01/02/2022 5:32 PM EDT Rule out COVID-19 04/05/2022 04/05/2022 04/06/2022 7:16 AM EDT documented as of this encounter Care Teams Material Requirements Worker Relationship Specialty Start Date End Date None PCP - Insurance PCP 06/10/18 Mile Kitchen MD [address] [place] [id number] PCP - General Family Medicine 08/02/21 02/12/24 Raisa Merritt MD [address] [place] [address] PCP - General Family Medicine 02/13/24 documented as of this encounter
--- OUTSIDE RECORDS SUMMARY | 2025-07-01 23:37 | XMS_ITS | Clinical Summary ---
Author Organization [employer] [facility] iance Address [address] [place] [address] Care Team Providers Care Sewer Hand Name Role Phone None Unavailable Unavailable Raisa Merritt MD Primary Care Provider [phone] Allergies No known active allergies Medications methadone (METHADOSE) 40 MG disintegrating tablet Take 100 mg by mouth in the morning. Fills at [facility]. Active Multiple Vitamin (MULTIVITAMIN) tabletIndications :Squamous cell carcinoma of head and neck Take 1 tablet by mouth in the morning. 90 tablet 3 022 Active lidocaine (XYLOCAINE) 2 % solution 5 mLs 022 Active sucralfate (CARAFATE) 1 GM/10ML suspension Take 1 g by mouth Active DULoxetine (CYMBALTA) 30 MG capsule Take 30 mg by mouth 024 Active OTHER MEDICATIONIndicat ions:Abnormal loss of weight,Squamous cell carcinoma of head and neck,Poor nutrition Nutritional Supplements Type: Ensure (220 alberto.) For use as directed 2 times per day DX: Squamous cell carcinoma of tongue ICD10:C01 Estimated body mass index is 28.88 kg/m as calculated from the following: Height as of 09/13/23: 5' 5.16 (1.655 m). Weight as of 02/11/24: 79.1 kg (174 lb 6.4 oz). There is no height or weight on file to calculate BSA. 60 Bottle 11 025 2025 Active apixaban (ELIQUIS) 5 MG po tabletIndications :Pulmonary embolism, unspecified chronicity, unspecified pulmonary embolism type, unspecified whether acute cor pulmonale present (HCC) TAKE 1 TABLET BY MOUTH TWICE DAILY IN THE MORNING AND BEFORE BEDTIME 180 tablet 3 025 2025 Active apixaban (ELIQUIS) 5 MG TABSIndications:P ulmonary embolism, unspecified chronicity, unspecified pulmonary embolism type, unspecified whether acute cor pulmonale present (HCC) Take 1 tablet by mouth in the morning and 1 tablet before bedtime. 180 tablet 3 024 2024 Discontinued Active Problems Problem Noted Date Diagnosed Date [...] enlarged lymph node/lump on the anterior neck. buttermaker continuous churn current use of anticoagulant therapy 0 10/04/2021 Overview (10/04/2021): PE 08/02/21 - on Eliquis. 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 Unclear if provoked or unprovoked. Messaged PCP to send e-consult to [facility] to review duration. Due to significant delays in reaching pt (no-showed x4) - initial DOAC education provided today 10/04/21 - Patrick Gentile, PharmD. Anterior cervical lymphadenopathy 08/02/2021 Pulmonary embolism 07/28/2021 Assessment & Plan (10/26/2021 9:21 AM EST): 10/26/21 Previously thought to be 2x unprovoked, now maybe due to underlying malignancy (head and neck SCC) Heroin dependence 07/22/2012 Depression 07/22/2012 Skin disorder 04/07/2010 Encounters Date Type Department Care Team Description 06/12/2025 Travel 05/13/2025 Telephone [facility] - Pharmacotherapy [address] [place] [address] Donna Christensen, PharmD Outreach-anticoagulatio n 04/21/2025 Telephone [facility] [address] [place] [address] Raisa Merritt MD 04/08/2025 Telephone [facility] - Pharmacotherapy [address] [place] [address] Donna Christensen, PharmD Outreach-anticoagulatio n (DOAC Monitoring) 04/07/[address] [facility] [address] [place] [address] Ken Parsons [place] Missed Appointment from Last 3 Months Immunizations Immunization Administration Dates Next Due Covid-19 Vaccine (Moderna - Full Dose) Hepatitis A Adult 2 dose 01/04/2006 Influenza, Unspecified Formulation 07/10/2008 Pneumococcal 20-(prevnar 20) 09/13/2023 Tdap 09/13/2023,07/13/2010 Social History Tobacco Use Types Packs/Day Years Used Date Smoking Tobacco: Every Day Cigarettes 2 5 Smokeless Tobacco: Never Tobacco Cessation:Ready to Q uit: Not Asked; Counseling Given: Not Answered Alcohol Use Standard Drinks/Week Comments No 0 (1 standard drink = 0.6 oz pur e alcohol) pt denies alcohol use. Comments No Sex and Gender Information Value Date Recorded Sex Assigned at Not on file Legal Sex Female 10:28 PM EDT Gender Identity Female 09/13/2023 11:44 AM EST Sexual Orientation Straight 09/13/2023 11 :44 AM EST Last Filed Vital Signs Vital Sign Reading Time Taken Comments Blood Pressure 101/59 02/11/2024 11:46 AM EDT Pulse 68 02/11/2024 11:46 AM EDT Temperature 35.9 C (96.6 F) 02/11/2024 11:46 AM EDT Respiratory Rate 16 01/25/2022 11:30 AM EDT Oxygen Saturation 92% 02/11/2024 11:46 AM EDT Inhaled Oxygen Concentration - - Weight 64.6 kg (142 lb 8 oz) 12/25/2024 3:35 PM EDT Height 170.2 cm (5' 7 ) 12/25/2024 3:35 PM EDT Body Mass Index 22.32 12/25/2024 3:35 PM EDT Plan of Treatment Health Maintenance Due Date Last Done Comments COLONOSCOPY 1965 Cervical Cancer Screening 1965 HPV SCREENING 1965 PAP SMEAR 1964 COLON CA SCREENING FLEX SIG EVERY 5 YRS 01/23/1982 LIPID SCREENING 01/23/1982 PHYSICAL EXAM 01/23/1986 Colorectal Cancer Screening 01/23/2009 FECAL OCCULT BLOOD AGE 45-75 01/23/2009 FIT- DNA (Cologuard) 01/23/2009 MAMMOGRAPHY 01/23/2014 ZOSTER VACCINE (1 of 2) 01/23/[address] 12 MON FOLLOW UP 10/12/2022 (Completed at [facility]) COVID-19 Vaccine (4 - 2024-2 6 season) 2025 11/04/2022, 03/19/2021, 12/10/2020 INFLUENZA VACCINE (#1) 2025 07/10/2008 AWQ Questionnaire 02/03/2026 02/03/2025, 01/05/2025 HEALTH CARE PROXY 02/10/2029 02/11/2024 (Completed at [facility]) TETANUS VACCINE (3 - Td or Tdap) 09/13/2033 09/13/2023, 07/13/2010 RSV OR 60+ (1 - 1-dose 75+ series) 01/23/2039 HEPATITIS A VACCINE (ADULT) Aged Out 01/04/2006 No longer eligible based on patient's age to complete this topic HIV SCREENING Completed 10/28/2021 HEP C SCREEN Completed 11/21/2021, 10/28/2021 PNEUMOCOCCAL VACCINE SERIES (65+) Completed 09/13/2023 PNEUMOCOCCAL VACCINE SERIES (< 65) Completed 09/13/2023 HPV VACCINE SERIES Aged Out No longer eligible based on patient's age to complete this topic MENINGOCOCCAL (MCV4) VACCINE SERIES Aged Out No longer eligible b ased on patient's age to complete this topic MENINGOCOCCAL B VACCINE SERIES Aged Out No longer eligible based on patient's age to complete this topic Goals Goal Patient Goal Type Associated Problems Recent Progress Patient-Stated? 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 [facility] Comment: Specimen has insufficient hepatitis C virus RNA to obtain genotyping results. This genotyping assay should only be used for known HCV positive patients with HCV RNA levels above 1000 IU/mL. HCV GENOTYPE PLEASE NOTE . [facility] Comment: This test was developed and its performance characteristics determined by [facility]. It has not been cleared or approved by the U.S. Food and Drug Administration. The FDA has determined that such clearance or approval is not necessary. This test is used for clinical purposes. It should not be regarded as investigational or for research. Performed at: [address] [id number] Process Engineer: Grisel Welsh MD, Phone: [phone] 11/21/2021 8:42 AM EDT 11/21/2021 9:11 AM EDT Felton Rodriguez MD LABORATORY Final Result [facility] [address] [place] [address], * HIV Antigen Antibody 5th Gen (10/28/2021 1:19 PM EST) HIVAGAB QUALITATIVE NON-REAC TIVE NONREACTIVE [facility] Comment: This sample is negative for HIV-1 Antibody (Groups M and O), HIV-2 Antibody, and HIV-1 p24 Antigen. No further testing is required. The differentiation tests will be reported as Test Not Performed (TNP). HIV-1 ANTIBODY 5TH GEN TNP 0.00 - 0.99 INDEX [facility] HIV-2 ANTIBODY 5TH GEN TNP 0.00 - 0.99 INDEX [facility] HIV-1 ANTIGEN 5TH GEN TNP 0.00 - 0.99 INDEX [facility] HIV-1 ANTIBODY GEENIUS TNP [facility] HIV-2 ANTIBODY GEENIUS TNP [facility] HIV RESULT INTERPRETATION TNP [facility] 10/28/2021 1:19 PM EST 10/28/2021 1:28 PM EST Narrative [facility] - 10/31/2021 1:51 PM EST PRIOR TO ORDERING, was verbal consent obtained? (Verbal consent by the patient or designee is REQUIR ED to order this test.)->YES Felton Rodriguez MD LABORATORY Final Result Performing Organization Address City/[facility] Co de Phone Number [facility] [address] [place] [address], from Last 3 Months or Most Recently Relevant to Health Maintenance Insurance [facility] Advance Directives * Full Code (Latest Code Status on File) Date Activated Date Inactivated Comments 07/27/2021 12:33 PM Care Teams Sewer Hand Relationship Specialty Start Date End Date None PCP - Insurance PCP 06/10/18 Raisa Merritt MD [address] [place] [phone] PCP - General Family Medicine 02/13/24
--- OUTSIDE RECORDS SUMMARY | 2025-07-01 23:37 | XMS_ITS | Encounter Summary ---
Author Organization [employer] [facility] iance Address [address] [place] [address] Care Team Providers Care Safety Technician Name Role Phone None Unavailable Unavailable Raisa Merritt MD Primary Care Provider [phone] Reason for Visit * Reason Onset Date Comments Durable Medical Equipment (Dme) 02/05/2025 ENSURE Encounter Details Date Type Department Care Team (Late st Contact Info) Description 02/05/[address] [address] Raisa Merritt MD [address] [place] [phone] Durable Medical Equipment (Dme) (ENSURE) Social History Tobacco Use Types Packs/Day Years [...] of Assessment Author No 07/27/2021 2:11 PM EST Genna Meadows RN * (RETIRED) Are you blind or [...] encounter Miscellaneous Notes * Telephone Encounter - Nam Tapia - 02/16/2025 11:37 AM EDT Images from the original note were not included. I called the patient and Left a voicemail to return call If patient calls back, please: Book the appointment per the following guidance: See below Raisa Merritt MD to [facility] Examify Pool (Selected Message) AT 02/13/25 3:24 PM Hi, This patient needs an inperson visit and documented weight for DME supplies. * Telephone Encounter - Gely Mosley - 02/05/2025 1:55 PM EDT RX for ENSURE received however we are still in need of visit notes supporting the need for this supply. Please use DMENUTRITION smart phrase when documenting to ensure all insurance criteria is included. *Please notify [facility] when this is complete. Thank you documented in this encounter Plan of Treatment Not on file documented as of this encounter Goals Goal Patient Goal Type Associated Problems Recent Progress Patient-Stated? Author Quit smoking / using tobacco Lifestyle (Healthcare Team Goals) No Joselin Romero documented as of this encounter Visit Diagnoses Not on filedocumented in this encounter Care Teams Safety Technician Relationship Specialty Start Date End Date None PCP - Insurance PCP 06/10/18 Raias Merritt MD [address] [place] [address] [place] [address] PCP - General Family Medicine 02/13/24 documented as of this encounter
--- OUTSIDE RECORDS SUMMARY | 2025-07-01 23:37 | XMS_ITS | Encounter Summary ---
Author Organization [employer] [facility] iance Address [address] [place] [address] Care Team Providers Care Materials Recycler Name Role Phone None Unavailable Unavailable Franklin Weinstein MD Primary Care Provider [phone] Raisa Merritt MD Primary Care Provider [phone] Reason for Visit * Reason Onset Date Comments Returned Call 11/30/2021 Encounter Details Date Type Department Care Team (Late st Contact Info) Description 11/30/[address] [facility] [address] [place] [address], [address] [place], [place] [id number] Caroline Julio, TAYLOR [address] [place] [phone] Returned Call Social History Tobacco Use Types Packs/Day Years [...] suspected to have Coronavirus/COVID-19? No / Unsure 12/02/2021 4:54 PM EDT documented as of this encounter Functional [...] Assessment Author No 07/27/2021 2:11 PM Genna sEpinoza RN * (RETIRED) Do you have difficulty [...] encounter Miscellaneous Notes * Telephone Encounter - Caroline Julio RN - 11/30/2021 3:09 PM EDT Call returned to Jayna @ [facility]. No answer. Message left requesting a call back and clarification If she needs to speak with PCP or Oncologist @ [facility] * Telephone Encounter - Caroline Julio RN - 11/30/2021 3:03 PM EDT ----- Message from Robina Jones sent at 11/29/2021 11:24 AM EDT ----- Regarding: [facility] addictions requesting call for care coordination Contact: [phone] Laurel Wilder [phone], 56 year old, female Calls today: Clinical Questions (NON-SICK CLINICAL QUESTIONS ONLY) Name of person calling [facility] for the Addictions Specific nature of request Jayna is requesting a call from someone to coordinate what's going on with the pt and any f/u care that is needed. Please advise, thanks Return phone number [phone] Person calling on behalf of patient: [facility] the Addictions CALL BACK NUMBER: [phone] Patient's language of care: Trinidadian Patient does not need an translator/interpreter. Patient's PCP: FRANKLIN WEINSTEIN MD documented in this encounter Plan of Treatment [...] documented as of this encounter Care Teams Materials Recycler Relationship Specialty Start Date End Date None PCP - Insurance PCP 06/10/18 Franklin Weinstein MD [address] [place] [id number] PCP - General Family Medicine 08/02/21 02/12/24 Raisa Merritt MD [address] [place] [id number] PCP - General Family Medicine 02/13/24 documented as of this encounter
--- OUTSIDE RECORDS SUMMARY | 2025-07-01 23:38 | XMS_ITS | Encounter Summary ---
Author Organization [facility] (historical information prior to 06/13/2025 only) Address [address] [place] [address] Care Team Providers Care Sole Conforming Machine Operator Name Role Phone Mile Kitchen MD Primary Care Provider [phone] Encounter Details Date Type Department Care Team (Late st Contact Info) Description 11/18/2021 Ancillary Orders Outside Imaging Facility Provider, Radiology Outside Exam, [address] [place] [id number] Social History Tobacco Use Types Packs/Day Years Used Date Smoking Tobacco: Never Assessed Comments Unknown Sex and Gender Information Value Date Recorded Sex Assigned at Not on file Legal Sex Female 2:10 PM EST Gender Identity Not on file Sexual Orientation Not on file documented as of this encounter Plan of Treatment Not on file documented as of this encounter Visit Diagnoses Not on filedocumented in this encounter Care Teams Sole Conforming Machine Operator Relationship Specialty Start Date End Date Mile Kitchen MD [address] [place] [phone] PCP - General Internal Medicine 01/14/24 documented as of this encounter
--- OUTSIDE RECORDS SUMMARY | 2025-07-01 23:38 | XMS_ITS | Encounter Summary ---
Author Organization [facility] (historical information prior to 06/13/2025 only) Address [address] [facility] [place] [address] Care Team Providers Care Vault Mechanic Name Role Phone Mile Kitchen MD Primary Care Provider [phone] Reason for Referral * Diagnostic Imaging (Routine) - Closed Specialty Diagnoses / Procedures Referred By Verónica byrne Referred To Contact Procedures PET/CT Outside Exam CT Outside Exam Provider, Radiology Outside Exam, [address] [place] [address] Phone: tel: Referral ID Status Reason Start Date Expiration Date Visits Re quested Visits Authorized [id number] Closed 11/18/2021 11/18/2022 1 1 Encounter Details Date Type Department Care Team (Late st Contact Info) Description 12/21/2021 Ancillary Orders Outside Imaging Facility Provider, Radiology Outside MD Sofia [address] [place] [address] Social History Tobacco Use Types Packs/Day Years Used Date Smoking Tobacco: Never Assessed Comments Unknown Sex and Gender Information Value Date Recorded Sex Assigned at Not on file Legal Sex Female 2:10 PM EST Gender Identity Not on file Sexual Orientation Not on file documented as of this encounter Plan of Treatment Not on file documented as of this encounter Results * PET/CT Outside Exam (11/10/2021 1:30 PM EST) Anatomical Region Laterality Modality Other Narrative 11/18/2021 7:34 AM EST Please see [employer] PACS for outside imaging and/or report. us Radiology Outside Exam Provider MD [facility] CT PROCED URES Edited Result - Final documented in this encounter Visit Diagnoses Not on filedocumented in this encounter Care Teams Vault Mechanic Relationship Specialty Start Date End Date Mile Kitchen MD [address] [place] [address] PCP - General Internal Medicine 01/14/24 documented as of this encounter
--- OUTSIDE RECORDS SUMMARY | 2025-07-01 23:38 | XMS_ITS | Encounter Summary ---
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 Smoker Procedures PET CT SKULL BASE TO MID [place] [address] Phone: tel: Referral ID Status Reason Start Date Expiration Date Visits Re quested Visits Authorized [id number] Closed 05/04/2023 05/03/2024 1 1 Encounter Details Date Type Department Care Team (Late st Contact Info) Description 05/04/2023 Ancillary Orders [facility] PET CT [address] [place] [address] [place] [address] Squamous cell carcinoma of base of tongue (CMS/HCC) (Primary Dx); 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); Smoker Social History Tobacco Use Types Packs/Day Years Used Date Smoking Tobacco: Never Assessed Comments Unknown Sex and Gender Information Value Date Recorded Sex Assigned at Not on file Legal Sex Female 2:10 PM EST Gender Identity Not on file Sexual Orientation Not on file documented as of this encounter Plan of Treatment Not on file documented as of this encounter Results * PET CT SKULL BASE TO MID THIGH (05/09/2023 3:56 PM EDT) Anatomical Region Laterality Modality Body Positron Emissio n Tomography (PET) 05/09/2023 3:00 PM EDT Impressions 05/11/2023 11:04 AM EDT Interval resolution of the intense uptake at the base of the right tongue and right cervical lymph nodes. No residual hypermetabolic malignancy; no evidence of metastatic disease. Small left pleural effusion, increased since the prior examination. I, the attending physician, attest that I have performed and/or supervised the resident for the lo and critical components of this procedure. I have personally reviewed the images pertinent to this examination and agree with the interpretation. Dictated: 05/11/2023 11:04 AM Report ID: [id number] Exam performed at [facility]. Report signed in external system at [facility] on 05/11/2023 11:04 Reported By: Tina Lopez M.D. (resident) ([id number]) Signed By: Marty Bedolla M.D. (HEFA) Narrative 05/11/2023 11:04 AM EDT RESPONSIBLE INDUSTRIAL SAFETY AND HEALTH SPECIALIST: Marty Bedolla M.D. EXAMINATION: PET CT SKULL BASE TO MID THIGH RADIOPHARMACEUTICAL: 14.7 mCi of F-18 FDG were administered intravenously via the left antecubital. CLINICAL INDICATION: Squamous cell carcinoma of the tongue with cervical lymphadenopathy. Subsequent treatment strategy TECHNIQUE: The patient's blood glucose level prior to FDG administration was 79 mg/dl. Time from injection to initiation of image acquisition was 58 minutes. The patient was given a small amount of diluted oral contrast (Barium Sulfate Suspension 2.1% w/v) Ecn-CO-oqclhjni CT and PET images were obtained from the skull base to mid thigh. The non-contrast CT scans were used for attenuation correction and localization. Images were acquired on a CHARGED[employer]fm-ST BGO-crystal PET/CT scanner, using 3D acquisition. Transaxial, coronal and sagittal PET images were reviewed in conjunction with fused non-contrast CT images. Average liver SUV measures 1.8. All SUV are based on body weight. COMPARISON: PET-CT 11/10/2021. FINDINGS: Head and Neck There is diffuse physiological uptake within the tongue. No cervical lymphadenopathy. The cerebral and cerebellar hemispheres demonstrate physiologic FDG uptake. Mild, improved mucosal thickening within the right the maxillary antrum. The rest of the paranasal sinuses are clear. The mucosal surfaces of the airway are symmetric. Chest There is no abnormal hypermetabolic activity. Airways/ lungs/ pleura: The central airways are patent. Mild centrilobular emphysematous changes. There is scattered subsegmental atelectasis. A small left pleural effusion is present. There is no mediastinal lymphadenopathy. The aorta is normal in caliber. The heart is not enlarged. There is no pericardial effusion. The esophagus is normal for the technique. Abdomen and Pelvis There is no abnormal hypermetabolic activity. The liver, spleen, pancreas and adrenal glands are normal. Patient is post cholecystectomy. Subcentimeter nonobstructing stone superior pole of the right kidney. The renal parenchyma is otherwise normal. No hydronephrosis. The opacified stomach, small bowel and colon are normal. No retroperitoneal, mesenteric, iliac or inguinal lymphadenopathy. The aorta is atherosclerotic without aneurysm. No ascites. There is an epigastric fat containing hernia. The urinary bladder is normal in contour. The reproductive organs are normal for the technique. Musculoskeletal System/extremities There is no abnormal hypermetabolic activity. There is physiological uptake within the paraspinal muscles and shoulder muscles. The soft tissues of the torso and extremities are normal. Calcific tendonitis involving the right supraspinatus muscle. There are degenerative changes in the skeleton, normal for the patient's age. Procedure Note Marty Bedolla MD - 05/11/2023 RESPONSIBLE INDUSTRIAL SAFETY AND HEALTH SPECIALIST: Marty Bedolla M.D. EXAMINATION: PET CT SKULL BASE TO MID THIGH RADIOPHARMACEUTICAL: 14.7 mCi of F-18 FDG were administered intravenously via the leftantecubital. CLINICAL INDICATION: Squamous cell carcinoma of the tongue with cervical lymphadenopathy.Subsequent treatment strategy TECHNIQUE: The patient's blood glucose level prior to FDG administration was 79mg/dl. Time from injection to initiation of image acquisition was 58 minutes. The patient was given a small amount of diluted oral contrast (BariumSulfate Suspension 2.1% w/v) Ijw-VO-lgurzmct CT and PET images were obtained from the skull base to midthigh. The non-contrast CT scans were used for attenuation correction andlocalization. Images were acquired on a [employer] Discovery-ST BGO-crystal PET/CT scanner,using 3D acquisition. Transaxial, coronal and sagittal PET images were reviewed in conjunctionwith fused non-contrast CT images. Average liver SUV measures 1.8. All SUV are based on body weight. COMPARISON: PET-CT 11/10/2021. FINDINGS: Head and Neck There is diffuse physiological uptake within the tongue. No cervicallymphadenopathy. The cerebral and cerebellar hemispheres demonstrate physiologic FDGuptake. Mild, improved mucosal thickening within the right the maxillary antrum.The rest of the paranasal sinuses are clear. The mucosal surfaces of the airway are symmetric. Chest There is no abnormal hypermetabolic activity. Airways/ lungs/ pleura: The central airways are patent. Mildcentrilobular emphysematous changes. There is scattered subsegmentalatelectasis. A small left pleural effusion is present. There is no mediastinal lymphadenopathy. The aorta is normal in caliber. The heart is not enlarged. There is no pericardial effusion. The esophagus is normal for the technique. Abdomen and Pelvis There is no abnormal hypermetabolic activity. The liver, spleen, pancreas and adrenal glands are normal. Patient ispost cholecystectomy. Subcentimeter nonobstructing stone superior pole of the right kidney. Therenal parenchyma is otherwise normal. No hydronephrosis. The opacified stomach, small bowel and colon are normal. No retroperitoneal, mesenteric, iliac or inguinal lymphadenopathy. Theaorta is atherosclerotic without aneurysm. No ascites. There is an epigastric fat containing hernia. The urinary bladder is normal in contour. The reproductive organs are normal for the technique. Musculoskeletal System/extremities There is no abnormal hypermetabolic activity. There is physiologicaluptake within the paraspinal muscles and shoulder muscles. The soft tissues of the torso and extremities are normal. Calcifictendonitis involving the right supraspinatus muscle. There are degenerative changes in the skeleton, normal for the patient'willie. IMPRESSION: Interval resolution of the intense uptake at the base of the right tongueand right cervical lymph nodes. No residual hypermetabolic malignancy; noevidence of metastatic disease. Small left pleural effusion, increased since the prior examination. I, the attending physician, attest that I have performed and/or supervised the resident for the lo and critical components of this procedure. I have personally reviewed the images pertinent to this examination and agree with the interpretation. Dictated: 05/11/2023 11:04 AM Report ID: [id number] Exam performed at [facility]. Report signed in external system at [facility] on 311:04 Reported By: Tina Lopez M.D. (resident) ([id number]) Signed By: Marty Bedolla M.D. 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
--- OUTSIDE RECORDS SUMMARY | 2025-07-01 23:38 | XMS_ITS | Encounter Summary ---
Author Organization [employer] iawie Address [address] [place] [address] Care Team Providers Care Recreation Aide Name Role Phone None Unavailable Unavailable Mile Kitchen MD Primary Care Provider [phone] Raisa Merritt MD Primary Care Provider [phone] Reason for Visit * Reason Onset Date Comments Follow Up 08/03/2021 Encounter Details Date Type Department Care Team (Late st Contact Info) Description 08/03/2021 Telephone [facility] [address] [place] [address], [address] [place], [place] [id number] Caroline Julio, TAYLOR [address] [place] [address] Follow Up Social History Tobacco Use Types Packs/Day Years [...] Exposure Response Date Recorded In the last month, have you been in contact with someone who was confirmed or suspected to have Coronavirus / COVID-19? No / Unsure 08/02/2021 5:01 PM EST documented as of this encounter Functional [...] Telephone Encounter - Caroline Julio RN - 08/03/2021 10:19 AM EST Call returned to Aubrey. Who reports she will be talking to Pt. Later today and Is aware that Laurel was seen In the ER yesterday. She is happy there has been an urgent referral Placed to ENT . * Telephone Encounter - Caroline Julio RN - 08/03/2021 9:52 AM EST ----- Message from Neeta Thompson sent at 08/02/2021 11:32 AM EST ----- Regarding: [facility] Care Coordination - Tomorrow Laurel Wilder [id number], 56 year old, female ?? Calls today: Clinical Questions (NON-SICK CLINICAL QUESTIONS ONLY) Name of person calling aubrey from [facility] Specific nature of request Returning call from [facility] - asking to get a call tomorrow to review the visit today. Thank you Return phone number [phone] Person calling on behalf of patient: aubrey from [facility] ? Patient's language of care: Emirati ?? Patient does not need an lang interpreter. ?? Patient's PCP: None ?? documented in this encounter Plan of Treatment Not on file documented as of this encounter Visit Diagnoses Not on filedocumented in this encounter Additional Health Concerns Infection Onset Date Last Indicated Resolved Time Rule out COVID-19 08/14/2021 08/14/2021 08/15/2021 1:38 PM EST Rule out COVID-19 10/05/2021 10/05/2021 10/06/2021 5:59 AM EST Rule out RSV 01/02/2022 01/02/2022 01/02/2022 5:32 PM EDT Rule out Influenzae 01/02/2022 01/02/2022 01/03/20 5:32 PM EDT Rule out COVID-19 01/02/2022 01/02/2022 01/02/2022 5:32 PM EDT Rule out COVID-19 04/05/2022 04/05/2022 04/06/2022 7:16 AM EDT documented as of this encounter Care Teams Recreation Aide Relationship Specialty Start Date End Date None PCP - Insurance PCP 06/10/18 Mile Kitchen MD [address] [place] [address] PCP - General Family Medicine 08/02/21 02/12/24 Raisa Merritt MD [address] [place] [address] PCP - General Family Medicine 02/13/24 documented as of this encounter
--- OUTSIDE RECORDS SUMMARY | 2025-07-01 23:38 | XMS_ITS | Encounter Summary ---
Author Organization [facility] iance Address [address] [place] [address] Care Team Providers Care Sales And Marketing Analyst Name Role Phone None Unavailable Unavailable Mile Kitchen MD Primary Care Provider [phone] Raisa Merritt MD Primary Care Provider [phone] Encounter Details Date Type Department Care Team (Late st Contact Info) Description 10/19/2021 Telephone [facility] Interventional Radiology - [facility] [address] [place], [place] [id number] Darcie Sparks RN Social History Tobacco Use Types Packs/Day Years [...] have Coronavirus / COVID-19? No / Unsure 10/20/2021 10:38 AM EST documented as of this encounter [...] Genna Espinoza RN documented in this encounter Nursing Notes * Darcie Sparks RN - 10/19/2021 12:02 PM EST Called pt to book appointment for biopsy of right neck mass. Appointment booked for 10/20/21 1030. Pt aware she needs to register prior to radiology. documented in this encounter Plan of Treatment [...] documented as of this encounter Care Teams Sales And Marketing Analyst Relationship Specialty Start Date End Date None PCP - Insurance PCP 06/10/18 Mile Kitchen MD [address] [place] [address] PCP - General Family Medicine 08/02/21 02/12/24 Raisa Merritt MD [address] [place] [address] PCP - General Family Medicine 02/13/24 documented as of this encounter
--- OUTSIDE RECORDS SUMMARY | 2025-07-01 23:38 | XMS_ITS | Encounter Summary ---
Author Organization [facility] Address [address] [place] [address] Care Team Providers Care Theoretical Physicist Name Role Phone None Unavailable Unavailable Mile Kitchen MD Primary Care Provider [phone] Raisa Merritt MD Primary Care Provider [phone] Encounter Details Date Type Department Care Team (Late st Contact Info) Description 02/20/[address], [address] [place], [place] [phone] Ellen Edmond [place] Social History Tobacco Use Types Packs/Day Years [...] encounter Miscellaneous Notes * Telephone Encounter - Ellen Edmond MA - 02/20/2023 11:46 AM EDT Laurel Wilder [id number], 58 year old, female Calls today: Clinical Questions (NON-SICK CLINICAL QUESTIONS ONLY) Name of person calling [employer] Specific nature of request an update for medical supply order that was faxed over Return phone number [phone] Person calling on behalf of patient: [employer] CALL BACK NUMBER: [phone] Best time to call back: odell Cell phone: Other phone: Patient's language of care: Gambian Patient does not need an translator interpreter. Patient's PCP: Mile Kitchen MD Primary [facility] Site: [facility] documented in this encounter Plan of Treatment Not on file documented as of this encounter Goals Goal Patient Goal Type Associated Problems Recent Progress Patient-Stated? Author Quit smoking / using tobacco Lifestyle (Healthcare Team Goals) No Joselin Romero documented as of this encounter Visit Diagnoses Not on filedocumented in this encounter Care Teams Theoretical Physicist Relationship Specialty Start Date End Date None PCP - Insurance PCP 06/10/18 Mile Kitchen MD [address] [place] [address] PCP - General Family Medicine 08/02/21 02/12/24 Raisa Merritt MD [address] [place] [address] PCP - General Family Medicine 02/13/24 documented as of this encounter
--- OUTSIDE RECORDS SUMMARY | 2025-07-01 23:38 | XMS_ITS | Encounter Summary ---
Author Organization [facility] (historical information prior to 06/13/2025 only) Address [address] [place] [address] Care Team Providers Care Community Service Representative Name Role Phone Mile Kitchen MD Primary Care Provider [phone] Encounter Details Date Type Department Care Team (Late st Contact Info) Description 12/16/2021 Documentation 2nd Floor [facility] [address] [facility] Nutrition [address] [facility] 2nd floor room [address] [place] [address] Social History Tobacco Use Types Packs/Day Years [...] on filedocumented in this encounter Care Teams Community Service Representative Relationship Specialty Start Date End Date Mile Kitchen MD [address] [place] [address] PCP - General Internal Medicine 01/14/24 documented as of this encounter
--- OUTSIDE RECORDS SUMMARY | 2025-07-01 23:38 | XMS_ITS | Encounter Summary ---
Author Organization [facility] (historical information prior to 06/13/2025 only) Address [address] [place] [address] Care Team Providers Care Agricultural Lender Name Role Phone Mile Kitchen MD Primary Care Provider [phone] Reason for Referral * Diagnostic Imaging (Routine) - Closed Specialty Diagnoses / Procedures Referred By Verónica byrne Referred To Contact Procedures Ultrasound Outside Exam Provider Radiology Lyn Black MD [address] [place] [address] Phone: tel: Referral ID Status Reason Start Date Expiration Date Visits Re quested Visits Authorized [id number] Closed 01/16/2022 01/16/2023 1 1 * Diagnostic Imaging (Routine) - Closed Specialty Diagnoses / Procedures Referred By Verónica byrne Referred To Contact Procedures CT Outside Exam Provider Radiology Lyn Black MD [address] [place] [address] Phone: tel: Referral ID Status Reason Start Date Expiration Date Visits Re quested Visits Authorized [id number] Closed 01/16/2022 01/16/2023 1 1 Encounter Details Date Type Department Care Team (Late st Contact Info) Description 01/16/2022 Ancillary Orders [facility] X-ray [address] [place] [address] Provider Radiology Lyn Black MD [address] [place] [address] Social History Tobacco Use Types Packs/Day Years Used Date Smoking Tobacco: Never Assessed Comments Unknown Sex and Gender Information Value Date Recorded Sex Assigned at Not on file Legal Sex Female 2:10 PM EST Gender Identity Not on file Sexual Orientation Not on file documented as of this encounter Plan of Treatment Not on file documented as of this encounter Results * Ultrasound Outside Exam (10/20/2021 12:00 PM EST) Narrative IMAGING - 01/16/2022 1:27 PM EDT Please see [employer] PACS for outside imaging and/or report. us Radiology Outside Exam Provider MD [facility] US PROCED URES Final Result Performing Organization Address [facility] Co de Phone Number IMAGING * CT Outside Exam (10/12/2021 1:50 PM EST) Narrative IMAGING - 01/16/2022 1:26 PM EDT Please see [employer] PACS for outside imaging and/or report. us Radiology Outside Exam Provider MD [facility] CT PROCED URES Final Result Performing Organization Address City/[facility] Co de Phone Number IMAGING documented in this encounter Visit Diagnoses Not on filedocumented in this encounter Care Teams Agricultural Lender Relationship Specialty Start Date End Date Mile Kitchen MD [address] [place] [id number] PCP - General Internal Medicine 01/14/24 documented as of this encounter
--- OUTSIDE RECORDS SUMMARY | 2025-07-01 23:38 | XMS_ITS | Encounter Summary ---
Author Organization [facility] (historical information prior to 06/13/2025 only) Address [address] [place] [address] Care Team Providers Care Fly Setter Name Role Phone Mile Kitchen MD Primary Care Provider [phone] Encounter Details Date Type Department Care Team (Late st Contact Info) Description 12/06/2021 Lab Requisition [facility] Main Lab [address] [place] [address] Liban Garcia MD [address] [place] [address] Social History Tobacco Use Types Packs/Day Years [...] Procedure Name Priority Date/Time Associated Diagnosis Comments PATHOLOGY CONSULT Routine 10/20/2021 12: 19 PM EST documented in this encounter Results * Pathology Consult (10/20/2021 12:19 PM EST) Case Report Consultation Case: [id number] Authorizing Provider: Liban Garcia MD Collected: 10/20/2021 12:19 PM Ordering Location: [facility] Main Lab Received: 12/06/2021 12:32 PM Pathologist: Madeline Arias MD Specimen: Lymph Node, Right, Cervical, Biopsy, core biopsies 2 8:54 AM EDT [facility] FINAL ANATOMIC DIAGNOSIS [facility]. [facility] [place] [address]: Lymph node (right neck mass), core needle biopsies ([id number] A; 10/20/2021): - Metastatic squamous cell carcinoma, focally keratinizing. - Immunohistochemistry performed at outside institution demonstrates the following staining profile in lesional cells (reviewed): POSITIVE: p40, p16 NEGATIVE: CK7, TTF-1 - By report: HPV, Low Risk 6/11: NEGATIVE HPV, High Risk 16/18: POSITIVE HPV, High Risk 31/33: NEGATIVE 2 8:54 AM EDT [facility] Clinical History Neck mass 2 8:54 AM EDT [facility] Gross Description A. Lymph Node, Right, Cervical, Biopsy. Received from [facility], Dept of Pathology, [facility] [place] [address], are twelve (12) glass slides labeled [id number] and sub labeled A1-1 , A1-2 , A1 CK7 , A1 TTF1 , A1 P40 , A1 P16 , A2-1 , A2-2 , A2 CK7 , A2 TTF1 , A2 P40 , A2 P16 corresponding to lymph node, right neck mass, core biopsies obtained on 10/20/2021, according to the accompanying pathology report bearing the patient's name and date of . MM 2 8:54 AM EDT [facility] Embedded Images 2 8:54 AM EDT [facility] Tissue (Lymph Node, Right, Cervical, Biopsy) 10/20/2021 12:19 PM EST 12/06/2021 12:32 PM EDT us Liban Garcia MD LAB PATHOLOGY/CYTOLOGY ORDERABLE S Final Result [facility] [address] [place] [address], [place] [phone] documented in this encounter Visit Diagnoses Not on filedocumented in this encounter Care Teams Fly Setter Relationship Specialty Start Date End Date Mile Kitchen MD [address] [place] [address] PCP - General Internal Medicine 01/14/24 documented as of this encounter
--- OUTSIDE RECORDS SUMMARY | 2025-07-01 23:38 | XMS_ITS | Encounter Summary ---
Author Organization [facility] iance Address [address] [place] [address] Care Team Providers Care Lead Burner Supervisor Name Role Phone None Primary Care Provider Unavailabl e None Unavailable Unavailable Mile Kitchen MD Primary Care Provider [phone] Raisa Merritt MD Primary Care Provider [phone] Encounter Details Date Type Department Care Team (Late st Contact Info) Description 08/01/[address], [address] [place] [address] Mariana Alvarado, TAYLOR [address] [address] Social History Tobacco Use Types Packs/Day Years [...] encounter Miscellaneous Notes * Telephone Encounter - Mariana Alvarado RN - 08/01/2021 7:04 PM EST Called Marinelli from [facility] back and got voicemail. Left message to call clinic back. Will forward to Dr. Kitchen who is seeing patient tomorrow. * Telephone Encounter - Mariana Alvarado RN - 08/01/2021 7:03 PM EST ----- Message from Franc Klein sent at 08/01/2021 4:17 PM EST ----- Regarding: biopsy order Contact: Laurel Wilder [phone], 56 year old, female Calls today: Clinical Questions (NON-SICK CLINICAL QUESTIONS ONLY) Name of person calling aubrey from [facility] Specific nature of request homre is calling to speak to rn regarding patient's biopsy order. Patient has new patient appointment tm Return phone number [phone] Person calling on behalf of patient: aubrey from [facility] Patient's language of care: Malian Patient does not need an magnetic tester. Patient's PCP: None documented in this encounter Plan of Treatment [...] documented as of this encounter Care Teams Lead Burner Supervisor Relationship Specialty Start Date End Date None PCP - General 07/02/19 08/01/21 None PCP - Insurance PCP 06/10/18 Mile Kitchen MD [address] [place] [id number] PCP - General Family Medicine 08/02/21 02/12/24 Raisa Merritt MD [address] [place] [address] PCP - General Family Medicine 02/13/24 documented as of this encounter
--- OUTSIDE RECORDS SUMMARY | 2025-07-01 23:38 | XMS_ITS | Encounter Summary ---
Author Organization [employer] [facility] iance Address [address] [place] [address] Care Team Providers Care Slip Cover Seamstress Name Role Phone None Unavailable Unavailable Raisa Merritt MD Primary Care Provider [phone] Reason for Visit * Reason Onset Date Comments Durable Medical Equipment (Dme) 04/16/2024 Ensure Encounter Details Date Type Department Care Team (Late st Contact Info) Description 04/16/[address] [address] Raisa Merritt MD [address] [place] [address] Durable Medical Equipment (Dme) (Ensure) Social History Tobacco Use Types Packs/Day Years [...] encounter Miscellaneous Notes * Telephone Encounter - Jossie Quiñones - 06/26/2024 12:51 PM EDT FINAL REQUEST - Please see previous message regarding DME supplies for this patient. If this is no longer appropriate please make [facility] D[facility] aware using the [facility]ARMACY CLASS. If the requested information is not received, this order will have to be cancelled as we do not have the required documentation for submission. Thank you * Telephone Encounter - Gely Mosley - 06/03/2024 11:17 AM EDT There is a completed a letter under the letters tab. Please print and put in folders to be signed by pcp & scanned to the [facility] DMEPHARMACY CLASS. Thank you I have sent you a separate message requesting to keep your signature on file. Thank you! * Telephone Encounter - Kevin Greene - 05/30/2024 2:45 PM EDT I have all I need at this point, please sign the LMN in the letters tab and scan back into remediation consultant and route to the dme class. I have sent you a separate message requesting to keep your signature on file. Thank you! * Telephone Encounter - Mesha Corrales - 05/09/2024 1:01 PM EDT We are still in need of visit notes supporting the need for this supply. Please use DMENUTRITION smart phrase when documenting to ensure all insurance criteria is included. Documentation can be added to 04/24/2024 visit *Please notify [facility] DMEPHARMACY CLASS when this is complete. Thank you * Telephone Encounter - Jane Washburn - 04/16/2024 12:38 PM EDT RX for Ensure received however we are still in need [...] on filedocumented in this encounter Care Teams Slip Cover Seamstress Relationship Specialty Start Date End Date None PCP - Insurance PCP 06/10/18 Raisa Merritt MD [address] [place] [address], [place] [address] PCP - General Family Medicine 02/13/24 documented as of this encounter
--- OUTSIDE RECORDS SUMMARY | 2025-07-01 23:38 | XMS_ITS | Encounter Summary ---
Author Organization [facility] (historical information prior to 06/13/2025 only) Address [address] [place] [address] Care Team Providers Care Octave Board Racker Name Role Phone Mile Kitchen MD Primary Care Provider [phone] Encounter Details Date Type Department Care Team (Late st Contact Info) Description 11/18/2021 Ancillary Orders [facility] MRI [address] [place] [phone] Provider, Radiology Outside Exam, [address] [place] [address] Social History Tobacco Use Types Packs/Day [...] on filedocumented in this encounter Care Teams Octave Board Racker Relationship Specialty Start Date End Date Mile Kitchen MD [address] [place] [address] PCP - General Internal Medicine 01/14/24 documented as of this encounter
--- OUTSIDE RECORDS SUMMARY | 2025-07-01 23:38 | XMS_ITS | Encounter Summary ---
Author Organization [facility] iance Address [address] [place] [address] Care Team Providers Care Ophthalmic Technologist Name Role Phone None Unavailable Unavailable Mile Kitchen MD Primary Care Provider [phone] Raisa Merritt MD Primary Care Provider [phone] Reason for Visit * Reason Onset Date Comments Hem/Onc 11/16/2021 New Start Carbop latin/Paclitaxel Encounter Details Date Type Department Care Team (Late st Contact Info) Description 11/16/2021 Telephone [facility] - [facility] [address] [facility] - 2nd Floor [place], [place] [phone] Yoselin Brown, PharmD Hem/Onc (New Start Carboplatin/Paclitaxel) Social History Tobacco Use Types Packs/Day Years [...] have Coronavirus / COVID-19? No / Unsure 11/14/2021 10:39 AM EST documented as of this encounter [...] encounter Miscellaneous Notes * Telephone Encounter - Yoselin Brown, PharmD - 11/16/2021 1:49 PM EST [id number] for Carboplatin/Paclitaxel Provider Recommendations (Directed mostly to PCP): 1. 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 Orders are placed for Hep C PCR. Pls let specialty pharmacy team know if you would like us to help her schedule a lab appt. ??? Consultation Completed with Patient or Authorized Individual: Yes ??? Managing Jeweler used: No ??? Diagnosis/Stage: Squamous cell carcinoma of head and neck, right face/parotid/upper neck area, metastatic. Clinical Stage 1, cT1, cN1, cM0, p16+. ??? Current Symptoms: Pain in neck, fatigue, weakness ??? Treatment Plan/Medication/Sig: o Treatment Plan: Curative intent to include concurrent external beam radiation therapy 5 days per week for 6 or 7 weeks; concurrent chemotherapy, once a week (low dose carboplatin (AUC: 2) and taxol(50mg/m2), during each week of radiation). o Pre-Meds Prescribed: ondansetron 8 mg every 8 hours for 2 days after chemotherapy, then as needed& dexamethasone 4 mg twice a day for 2 days after chemotherapy, then as needed. ??? Was consent form signed for specific agent?: Yes ??? Any difficulty swallowing pills/capsules?: No ??? Anticipated start date: November 21, 2021 ??? Important Lab Data/Diagnostics/Mutations: WHITE BLOOD CELL COUNT (TH/uL) Date Value 10/28/2021 6.5 RED BLOOD CELL COUNT (M/uL) Date Value 10/28/2021 6.20 (H) HEMOGLOBIN (g/dL) Date Value 10/28/2021 12.4 No results found for: IDEALHCT HEMATOCRIT (%) Date Value 10/28/2021 42.0 No results found for: HCTDIFF MEAN CORPUSCULAR VOL (fl) Date Value 10/28/2021 67.7 (*L) MEAN CORPUSCULAR HGB (pg) Date Value 10/28/2021 20.0 (L) MEAN ANKIT HGB CONC (g/dL) Date Value 10/28/2021 29.5 (L) RBC DISTRIBUTION WIDTH (%) Date Value 09/21/2015 15.9 (H) PLATELET COUNT (TH/uL) Date Value 10/28/2021 222 MEAN PLATELET VOLUME (fL) Date Value 10/28/2021 10.0 NEUTROPHIL % (%) Date Value 08/14/2021 53.5 LYMPHOCYTE % (%) Date Value 08/14/2021 33.8 MONOCYTE % (%) Date Value 08/14/2021 7.6 EOSINOPHIL % (%) Date Value 08/14/2021 4.0 BASOPHIL % (%) Date Value 08/14/2021 0.6 BASOPHILS % (%) Date Value 10/28/2021 0.0 ALBUMIN (g/dL) Date Value 10/28/2021 3.8 ALKALINE PHOSPHATASE (U/L) Date Value 10/28/2021 102 ALANINE AMINOTRANSFERASE (U/L) Date Value 10/28/2021 16 ASPARTATE AMINOTRANSFERASE (U/L) Date Value 10/28/2021 15 Glucose Random (mg/dL) Date Value 10/28/2021 93 BUN (UREA NITROGEN) (mg/dL) Date Value 10/28/2021 14 CALCIUM (mg/dL) Date Value 10/28/2021 9.2 CHLORIDE (mmol/L) Date Value 10/28/2021 102 CARBON DIOXIDE (mmol/L) Date Value 10/28/2021 29 CREATININE (mg/dL) Date Value 10/28/2021 0.8 POTASSIUM (mmol/L) Date Value 10/28/2021 4.6 SODIUM (mmol/L) Date Value 10/28/2021 140 BILIRUBIN TOTAL (mg/dL) Date Value 10/28/2021 0.6 TOTAL PROTEIN (g/dL) Date Value 10/28/2021 8.2 ??? Date / Recent Vitals/Wt/Ht/BSA/EKG: Vitals 11/15/2021 11/14/2021 10/28/2021 SYSTOLIC 138 140 DIASTOLIC 72 77 Pulse 82 78 Temp 98 97.2 Resp Weight 176 178 WEIGHT (kg) 79.833 kg 80.74 kg Height 67 O2Sat 97 94 Pain Score ??? Current Medication List: Methadone, Eliquis, lorazepam, decadron, zofran ??? OTC meds/herbal supplements/additional medications: Alive multivitamin for women, Vitamin B12, Vitamin B Complex ??? Drug Utilization Review/Drug Interactions: - Ondansetron + Methadone (Category D: Consider therapy modification) Summary??QT-prolonging Agents(Highest Risk) may enhance the QTc-prolonging effect of Ondansetron. - If use is necessary, monitor for QTc interval prolongation and arrhythmias (including torsades depointes). Patients with other risk factors (eg, older age, female sex, bradycardia, hypokalemia, hypomagnesemia, heart disease, and higher drug concentrations) or those using IV ondansetron are likely at greater risk for these potentially life-threatening toxicities. ??? Monitoring Parameters: CBC w/ diff, platelet count ??? Drug Specific Counseling: o Common Side effects: N/V/D, Loss of appetite, hair loss and numbness, tingling/burning/pain in hands or feet, fatigue, increase risk for infection, increase risk of bleeding o Warnings/Precautions: Bone Marrow Suppression (leukopenia, neutropenia, and thrombocytopenia), nephrotoxicity, emesis, peripheraly neurotoxicity, loss of hearing or ringing in the ears, infections,renal/hepatic toxicity, allergic reactions, injection site reactions. o Hazardous Medication handling precautions. ??? Follow Up / Next scheduled appointment: Next appt with Dr. Rodriguez is scheduled for 11/21/2021 ??? Was education/counseling provided RE: o Nutrition: Yes o Fluid intake: Yes o Mouth Care: Yes o Infection Precautions: Yes o Sexual Activity and Exposure: Yes ??? Were the following phone numbers provided to the patient: Yes o Call Center (for questions or concerns): [phone] or [phone] o Physician On-Call: [phone] o Specialty Pharmacy Number: [phone], Option 2 documented in this encounter Plan of Treatment [...] documented as of this encounter Care Teams Ophthalmic Technologist Relationship Specialty Start Date End Date None PCP - Insurance PCP 06/10/18 Mile Kitchen MD [address] [place] [address] PCP - General Family Medicine 08/02/21 02/12/24 Raisa Merritt MD [address] [place] [phone] PCP - General Family Medicine 02/13/24 documented as of this encounter
--- OUTSIDE RECORDS SUMMARY | 2025-07-01 23:38 | XMS_ITS | Clinical Summary ---
Author Organization [facility] (historical information prior to 06/13/2025 only) Address [address] [facility] [place] [address] Care Team Providers Care Commissioning Agent Name Role Phone Mile Kitchen MD Primary Care Provider [phone] Medications lidocaine HCL (lidocaine) 2 % viscous solution Swish and spit 5 mL every 3 (three) hours. 240 mL 3 01/19/2022 Active Social History Tobacco Use Types Packs/Day Years Used Date Smoking Tobacco: Never Assessed Comments Unknown Sex and Gender Information Value Date Recorded Sex Assigned at Not on file Legal Sex Female 2:10 PM EST Gender Identity Not on file Sexual Orientation Not on file Plan of Treatment Health Maintenance Due Date Last Done Comments Periodic Health Exam 01/23/1982 Tetanus Diphtheria and Pertussis Vaccines (TD and TDaP) (1 - Tdap) 01/23/1983 PAP Screening 01/23/1994 Breast Cancer Screening 2004 Colon Cancer Screening 01/23/2009 Shingrix (Zoster Recombinant ) Vaccine (1 of 2) 01/23/2014 Influenza (Seasonal) 04/10/2025 07/10/2008 CoVid-19 Vaccine (3 - 2024-2 6 season) 2025 11/04/2022, 03/19/2021, 12/10/2020 Hepatitis C Screening Completed 10/28/2021 Pneumococcal Vaccine: Pediatrics (0 to 5 Years) and At-Risk Patients (6 to 64 Years) Aged Out 09/13/2023 No longer eligible b ased on patient's age to complete this topic HIB Vaccines Aged Out No longer eligi ble based on patient's age to complete this topic HPV Vaccines Aged Out No longer eligi ble based on patient's age to complete this topic Meningococcal Vaccine Aged Out No basil geoffrey eligible based on patient's age to complete this topic Insurance [facility] MEDICARE A&B * Guarantor: Tina, Laurel Account Type Relation to Patient Date of Phone Billing Address Personal/Family Self [address] [place] [address] * Guarantor: Laurel Wilder Account Type Relation to Patient Date of Phone Billing Address Personal/Family Self [address] [place] [address] * Guarantor: Laurel Wilder Account Type Relation to Patient Date of Phone Billing Address Personal/Family Self [address] [place] [address] * Guarantor: Laurel Wilder Account Type Relation to Patient Date of Phone Billing Address Personal/Family Self [address] [place] [address] * Guarantor: Laurel Wilder Account Type Relation to Patient Date of Phone Billing Address Personal/Family Self [address] [place] [address] Care Teams Commissioning Agent Relationship Specialty Start Date End Date Mile Kitchen MD [address] [place] [address] PCP - General Internal Medicine 01/14/24
--- OUTSIDE RECORDS SUMMARY | 2025-07-01 23:38 | XMS_ITS | Encounter Summary ---
Author Organization [facility] iance Address [address] [place] [address] Care Team Providers Care Watch Repairer Name Role Phone None Unavailable Unavailable Raisa Merritt MD Primary Care Provider [phone] Reason for Visit * Reason Onset Date Comments Durable Medical Equipment (Dme) 04/17/2024 [facility] Encounter Details Date Type Department Care Team (Late st Contact Info) Description 04/17/[address] [address] Raisa Merritt MD [address] [place] [phone] Durable Medical Equipment (Dme) ([facility]) Social History Tobacco Use Types Packs/Day Years [...] encounter Miscellaneous Notes * Telephone Encounter - Jane Washburn - 04/17/2024 4:13 PM EDT Request for dme items received from [facility] and scanned into social media community manager under ???[facility]?? . Please print and put in folders to be signed by PCP & faxed to [phone] Please make sure to fill in requested information prior to faxing. Thank you documented in this encounter Plan of Treatment Not on file documented as of this encounter Goals Goal Patient Goal Type Associated Problems Recent Progress Patient-Stated? Author Quit smoking / using tobacco Lifestyle (Healthcare Team Goals) No Joselin Romero documented as of this encounter Visit Diagnoses Not on filedocumented in this encounter Care Teams Watch Repairer Relationship Specialty Start Date End Date None PCP - Insurance PCP 06/10/18 Raisa Merritt MD [address] [place] [address] PCP - General Family Medicine 02/13/24 documented as of this encounter
--- OUTSIDE RECORDS SUMMARY | 2025-07-01 23:38 | XMS_ITS | Clinical Summary ---
Author Organization [facility] Address [address] [place] [address] Phone Care Team Providers Care Napper Grinder Name Role Phone Unavailable Primary Care Provider Unavailabl e Immunizations Immunization Administration Dates Next Due Covid-19 Vaccine, (MODERNA R ED CAP_12+ PRIMARY SERIES), mRNA, intramuscular PF injection 12/10/2020 Social History Tobacco Use Types Packs/Day Years Used Date Smoking Tobacco: Never Assessed Comments Unknown Sex and Gender Information Value Date Recorded Sex Assigned at Not on file Legal Sex Female 5:59 PM EDT Gender Identity Not on file Sexual Orientation Not on file Plan of Treatment Health Maintenance Due Date Last Done Comments Diabetes Screening 1965 HIV Lifetime Screening 1965 Hepatitis B Lifetime Screening 1965 Hepatitis C Antibody Lifetim e Screening 1965 LEEP 1965 LIPID PANEL 1965 THRIVE SCREENING 1965 Oral Health Screen 1965 HEIP Disability Screen 01/23/1969 BEHAVIORAL HEALTH SCREEN 1976 Psych Substance Use Screen 1976 DTAP/TDAP VACCINE (1 - Tdap) 01/23/1983 Cervical Cancer Screening 01/23/1985 Colposcopy 01/23/1985 PAP SMEAR 01/23/1985 Pap + HPV 01/23/1985 MAMMOGRAM 2004 Colonoscopy FOBT- Positive 01/23/2009 Colonoscopy 01/23/2009 Colorectal Cancer Screening 01/23/2009 FOBT 01/23/2009 Sigmoidoscopy 01/23/2009 Pneumonia Vaccine 50+ (1 of 1 - PCV) 01/23/2014 Zoster Vaccine (1 of 2) 01/23/2014 COVID-19 Vaccine (2 - 2024-2 6 season) 2025 12/10/2020 INFLUENZA VACCINE (#1) 2025 RSV Immunization 60 Years an d Older [place] (1 - 1-dose 75+ series) 01/23/2039 HPV VACCINES Aged Out No longer eligi ble based on patient's age to complete this topic IPV VACCINES Aged Out No longer eligi ble based on patient's age to complete this topic MENINGOCOCCAL B Aged Out No longer el igible based on patient's age to complete this topic ROTAVIRUS VACCINES Aged Out No longer eligible based on patient's age to complete this topic
--- OUTSIDE RECORDS SUMMARY | 2025-07-01 23:38 | XMS_ITS | Clinical Summary ---
Author Organization Danisha Valera [facility] Address [address] [place] [address] Care Team Providers Care Puncher And Fastener Name Role Phone Mirella Bobby MD Primary Care Provider [phone] Allergies No known active allergies Medications apixaban (ELIQUIS) 5 mg Tab Take 1 tablet (5 mg total) by mouth every morning & every evening. Active methadone (DOLOPHINE) 5 mg/5 mL solutionIndicat ions:opioid use disorder Take 50 mL (50 mg total) by mouth daily. Per [facility] methadone clinic ([phone]) : Prescribed dose is 100mg daily. But because the patient has missed multiple visits, if she were to return to the clinic her dose would be reduced by half. Active sucralfate (CARAFATE) 100 mg/mL suspension Take 10 mL (1 g total) by mouth 3 times a day with meals & at bedtime. Active cyanocobalamin (VITAMIN B-12) 1000 MCG tablet Take 1 tablet (1,000 mcg total) by mouth daily. 30 tablet 4 Active DULoxetine (CYMBALTA) [address] capsule Take 1 capsule (30 mg total) by mouth daily. 60 capsule 4 Active folic acid (FOLVITE) 1 MG tablet Take 1 tablet (1 mg total) by mouth daily. 30 tablet 4 Active ferrous sulfate 325 (65 FE) MG tablet Take 1 tablet (325 mg total) by mouth daily for 30 days. 30 tablet 4 Active Active Problems Problem Noted Date Diagnosed Date Chest pain 02/02/2024 Encounters Date Type Department Care Team Description 06/30/2025 10:27 AM EDT - 07/01/2025 3:05 PM EDT [facility] [address] [place] [id number] Sahil Meza MD Quinn, Austin, MD Manice, Nicholas, MD Ayandeh, Armon, MD Post traumatic stress disorder (PTSD) [F43.10] (Primary Dx); MDD (major depressive disorder), recurrent severe, without psychosis ([facility]) [F33.2]; Opioid use disorder, severe ([facility]) [F11.20]; Suicidal ideation Discharge Disposition: Admitted as an Inpatient from Last 3 Months Social History Tobacco Use Types Packs/Day Years Used Date Smoking Tobacco: Every Day Cigarettes 1 49.8 Started: 1975 Smokeless Tobacco: Never Tobacco Cessation:Ready to Q uit: No; Counseling Given: No Comments:Requests a patch Alcohol Use Standard Drinks/Week Comments Not Currently 0 (1 standard drink = 0.6 oz pur e alcohol) [facility] Utilities Answer Date Recorded In the past 12 months has [employer], gas, oil, or water [employer] threatened to shut off services in your [...] any time in the past 12 m [facility], were you homeless or living in a care home (including now)? No 02/02/2024 Food Insecurity Answer [...] AM EDT Sexual Orientation Not on file Last Filed Vital Signs Vital Sign Reading [...] Mass Index 24.91 06/30/2025 3:29 PM EDT Plan of Treatment Health Maintenance Due Date Last Done Comments Lipid Panel 1964 Depression Screening 1968 Pap Smear 01/23/1985 Cervical Cancer Screening 01/23/1994 HPV/Cotest 01/23/1994 Breast Cancer Screening 2004 CT Colonography 01/23/2009 Colonoscopy 01/23/2009 Colorectal Cancer Screening 01/23/2009 FIT 01/23/2009 FOBT 01/23/2009 Multitarget Stool DNA (Cologuard) 01/23/2009 Sigmoidoscopy 01/23/2009 Lung Cancer Screening 01/23/2014 Zoster Vaccine (1 of 2) 01/23/2014 Medicare Initial AWV [id number] 02/09/2016 COVID-19 Vaccine (3 - 2024-2 6 season) 2025 03/19/2021, 12/10/2020 Influenza Vaccine (#1) 2025 07/10/2008 Blood Pressure 07/01/2026 07/01/2025 DTaP,Tdap,and Td Vaccines (3 - Td or Tdap) 09/13/2033 09/13/2023, 07/13/2010 Hepatitis C Screening Completed 11/21/2021 Pneumococcal Vaccine: 50+ Years Completed 09/13/2023 Meningococcal B Vaccines Aged Out No longer eligible based on patient's age to complete this topic Meningococcal Vaccines Aged Out No lo nger eligible based on patient's age to complete this topic Procedures Procedure Name Priority Date/Time Associated Diagnosis Comments 6-ACETYLMORPHINE SCREEN, URINE STAT 06/30/2025 7:03 PM EDT TRAMADOL SCREEN, URINE STAT 7:03 PM EDT FENTANYL SCREEN, URINE STAT 7:03 PM EDT DRUG SCREEN, URINE STAT 06/30/2025 7: 03 PM EDT URINALYSIS WITH URINE CULTURE REFLEX STAT 06/30/2025 7:03 PM EDT XR PORTABLE CHEST 1 VW STAT 12:[address] HEAD WO CONTRAST STAT 06/30/2025 1 2:37 PM EDT RAINBOW DRAW STAT 06/30/2025 12:31 PM EDT CBC AND DIFFERENTIAL STAT 06/30/2025 12:31 PM EDT BNP (B-TYPE NATRIURETIC PEPTIDE) Routine 06/30/2025 12:31 PM EDT YELLOW TOP STAT 06/30/2025 12:31 PM EDT LAVENDER TOP STAT 06/30/2025 12:31 PM EDT MINT GREEN TOP STAT 06/30/2025 12:31 PM EDT RED TOP STAT 06/30/2025 12:31 PM EDT LIGHT BLUE TOP STAT 06/30/2025 12:31 PM EDT CBC AND DIFFERENTIAL STAT 06/30/2025 12:31 PM EDT TOXICOLOGY SCREEN, BLOOD STAT 06/30/2025 12:31 PM EDT TROPONIN (ALL) STAT 06/30/2025 12:31 PM EDT MAGNESIUM STAT 06/30/2025 12:31 PM EDT COMPREHENSIVE METABOLIC PANEL STAT 06/30/2025 12:31 PM EDT ECG 12-LEAD STAT 06/30/2025 11:38 AM EDT from Last 3 Months Results * 6-Acetylmorphine Screen, Urine (06/30/2025 7:03 PM EDT) 6-Aceytlmorphine Screen, Urine Negative Negative [facility] [id number] 06/30/2025 7:23 PM EDT [facility] Comment: 6-acetylmorphine cutoff is 10 ng/mL 6-acetylmorphine Add on order [id number] Opiates and Oxycodone, Urine, Confirmation, if confirmation desired. Results should be used for medical purposes only and not for any legal or employment evaluative purposes. Urine URINE SPECIMEN / Unknown Collection / Unknown 06/30/2025 7:03 PM EDT 06/30/2025 7:06 PM EDT Sahil Meza MD URINE ORDERABLES Final Result [address] [address], [place] [phone] * (ABNORMAL) Drug Screen, Urine (06/30/2025 7:03 PM EDT) Amphetamines Screen, Urine Negative Negative 06/30/2025 7:25 PM EDT [facility] Barbiturates Screen, Urine Negative Negative 06/30/2025 7:25 PM EDT [facility] Benzodiazepine Screen, Urine Positive(A) Negative 06/30/2025 7:25 PM EDT [facility] Buprenorphine Screen, Urine Negative Negative 06/30/2025 7:25 PM EDT [facility] Cannabinoids Screen, Urine Negative Negative 06/30/2025 7:25 PM EDT [facility] Cocaine Metabolite Screen, Urine Positive(A) Negative 06/30/2025 7:25 PM EDT [facility] Methadone Screen, Urine Negative Negative 06/30/2025 7:25 PM EDT [facility] Methamphetamine, Urine Negative Negative 06/30/2025 7:25 PM EDT [facility] Opiates Screen, Urine Negative Negative 06/30/2025 7:25 PM EDT [facility] Oxycodone Screen, Urine Negative Negative 06/30/2025 7:25 PM EDT [facility] TCA, Urine Negative Negative 06/30/2025 7:25 PM T [facility] Creatinine, Gregory Urine 73.7 No Established Reference Range mg/dL [facility] [id number] 06/30/2025 7:25 PM EDT [facility] Fentanyl Screen, Urine Positive(A) Negative [facility] [id number] 06/30/2025 7:25 PM EDT [facility] Tramadol Screen, Urine Negative Negative [facility] [id number] 06/30/2025 7:25 PM T [facility] 6-Aceytlmorphine Screen, Urine Negative Negative [facility] [id number] 06/30/2025 7:25 PM [facility] Phencyclidine Screen, Urine Negative Negative 06/30/2025 7:25 PM T [facility] Urine URINE SPECIMEN / Unknown Collection / Unknown 06/30/2025 7:03 PM EDT 06/30/2025 7:06 PM EDT [facility] LABORATORY - 06/30/2025 7:25 PM EDT Specimen analysis [...] absinence. Thresholds are established by the test tire trimmer hand. Drug levels below thresholds will be reported as negative. This is an antibody-antigen methods screening test and has the potential for false positive results caused by other drugs, medications and supplements with similar structures, if results are discordant clinically. us Sahil Meza MD URINE ORDERABLES Final Result Performing Organization Address [facility] Co de Phone Number [facility] [address] [place] [address], [place] [phone] * Tramadol Screen, Urine (06/30/2025 7:03 PM EDT) Tramadol Screen, Urine Negative Negative [facility] [id number] 06/30/2025 7:23 PM EDT [facility] Comment: Tramadol cutoff is 200 ng/mL Tramadol. Add-on order [id number] Tramadol Confirmation, Urine, if confirmation desired. Results should be used for medical purposes only and not for any legal or employment evaluative purposes. Urine URINE SPECIMEN / Unknown Collection / Unknown 06/30/2025 7:03 PM EDT 06/30/2025 7:06 PM EDT us Sahil Meza MD URINE ORDERABLES Final Result Performing Organization Address [facility] Phone Number [address] [address], [place] [phone] * (ABNORMAL) Fentanyl Screen, Urine (06/30/2025 7:03 PM EDT) Fentanyl Screen, Urine Positive(A ) Negative [facility] [id number] 06/30/2025 7:23 PM EDT [facility] Urine URINE SPECIMEN / Unknown Collection / Unknown 06/30/2025 7:03 PM EDT 06/30/2025 7:06 PM EDT us Sahil Meza MD URINE ORDERABLES Final Result Performing Organization Address [facility] Co de Phone Number [address] [address], [place] [phone] * (ABNORMAL) Urinalysis with Reflex to Urine Culture (06/30/2025 7:03 PM EDT) Color, Urine Yellow Mallory, Yellow, Dark Yellow 06/30/2025 7:27 PM [facility] Clarity, Urine Clear Clear 06/30/2025 7:27 PM [facility] pH, Urine 7.5 5.0 - 9.0 06/30/2025 7:27 PM [facility] Protein, Urine Negative Negative 06/30/2025 7:27 PM [facility] Glucose, Urine Negative Negative, 100 mg/dL 06/30/2025 7:27 PM [facility] Ketone, Urine Negative Negative 06/30/2025 7:27 PM [facility] Bilirubin, Urine Negative Negative 06/30/2025 7:27 PM [facility] Urobilinogen, Urine 1.0 mg/dL 0.2 mg/dL, 1.0 mg/dL 06/30/2025 7:27 PM [facility] Blood, Urine Trace(A) Negative 06/30/2025 7:27 PM [facility] Leukocyte Esterase, Urine Trace(A) Negative 06/30/2025 7:27 PM [facility] Nitrite, Urine Negative Negative 06/30/2025 7:27 PM [facility] Specific [place], Urine 1.017 1.005 - 1.035 06/30/2025 7:27 PM [facility] White Blood Cells, Urine <2 <=4 /hpf 06/30/2025 7:27 PM [facility] Red Blood Cell, Urine 0-2 <=2 cells/HPF 06/30/2025 7:27 PM [facility] Bacteria Urine None Seen None Seen 06/30/2025 7:27 PM [facility] Squamous Epithelial Cells 3-5/HPF <=5/HPF /HPF 06/30/2025 7:27 PM [facility] Hyaline Cast 0-2 0 - 2 cast/LPF 06/30/2025 7:27 PM [facility] Urine MID-STREAM URINE SPECIMEN / Unknown Collection / Unknown 06/30/2025 7:03 PM EDT 06/30/2025 7:06 PM EDT Sahil Meza MD URINE ORDERABLES Final Result [facility] [address] [place] [address], [place] [phone] * XR Chest 1 Vw Portable (06/30/2025 [...] an infiltrate versus additional engorged pulmonary vessels. Sahil Meza MD IMG DIAGNOSTIC IMAGING ORDERABLE [...] Exposure to Ionizing Radiation was submitted to [employer] Dose Index Registry. Measure #436 Adaptive Iterative [...] soft tissues are unremarkable. Procedure Note Lv Jarrell, - 06/30/2025 EXAM DESCRIPTION: CT HEAD WO CONTRAST CLINICAL HISTORY: 60 y/o F with AMS on Eliquis; COMPARISON: None TECHNIQUE: - Helical axial CT imaging was performed through the head without intravenous contrast. 2D reconstructions were performed. - MIPS Measure #359 Standard nomenclature was used for Dose Index registry submission. MIPS Measure #361 Patient Exposure to Ionizing Radiation was submitted to [employer] Dose Index Registry. Measure #436 Adaptive Iterative [...] or midline shift. us Sahil Meza MD IM CT ORDERABLES Final Result * Troponin (once) (06/30/2025 12:31 PM EDT) Pathologist [facility] Troponin I <0.01 <0.08 ng/mL [email or web address] [id number] 06/30/2025 1:15 PM EDT [facility] Comment: The troponin upper reference value was set at 0.08 ng/mL by pat with the associated air brake rigger after concurrent and retrospective clinical review. New [...] or more on a subsequent troponin specimen. [place] EA, et al. 2014 AGA/ACC NSTE-ACS Guideline [...] MD LAB BLOOD ORDERABLES Final Resul t [facility] [address] [place] [address], [place] [phone] * (ABNORMAL) CBC and Differential (06/30/2025 12:31 PM EDT) WBC 6.45 4.00 - 11.00 K/uL 06/30/2025 12:42 PM EDT [facility] RBC 4.40 4.00 - 5.20 M/uL 06/30/2025 12:42 PM EDT [facility] Hemoglobin 9.0(L) 12.0 - 15.0 g/dL 06/30/2025 12:42 PM EDT [facility] Hematocrit 29.6(L) 36.0 - 45.0 % 06/30/2025 12:42 PM EDT [facility] MCH 20.5(L) 23.0 - 37.0 pg 06/30/2025 12:42 PM EDT [facility] MCHC 30.4 29.0 - 38.0 g/dL 06/30/2025 12:42 PM EDT [facility] MCV 67(L) 82 - 98 fL 06/30/2025 12:42 PM EDT [facility] RDW 15.4(H) 11.5 - 15.0 % 06/30/2025 12:42 PM EDT [facility] Platelet Count 292 150 - 450 K/uL 06/30/2025 12:42 PM EDT [facility] MPV 8.6 8.0 - 14.0 fL 06/30/2025 12:42 PM EDT [facility] Neutrophil 85.5 % 06/30/2025 12:42 PM EDT [facility] Lymphocyte 8.8 % 06/30/2025 12:42 PM EDT [facility] Monocyte 4.2 % 06/30/2025 12:42 PM EDT [facility] Eosinophil 0.5 % 06/30/2025 12:42 PM EDT [facility] Basophil 0.5 % 06/30/2025 12:42 PM EDT [facility] Immature Granulocyte ([place], Myelo, Promyelocyte) 0.5 % 06/30/2025 12:42 PM EDT [facility] Absolute Neutrophil Count 5.52 1.50 - 7.70 K/uL 06/30/2025 12:42 PM EDT [facility] Absolute Immature Granulocyte ([place], Myelo, Promyelocyte) 0.03 0.00 - 0.09 K/uL 06/30/2025 12:42 PM EDT [facility] Absolute Lymphocyte Count 0.57(L) 1.00 - 5.00 K/uL 06/30/2025 12:42 PM EDT [facility] Absolute Monocyte Count 0.27 0.10 - 1.00 K/uL 06/30/2025 12:42 PM EDT [facility] Absolute Eosinophil Count 0.03 0.00 - 0.70 K/uL 06/30/2025 12:42 PM EDT [facility] Absolute Basophil Count 0.03 0.00 - 0.20 K/uL 06/30/2025 12:42 PM EDT [facility] Blood PERIPHERAL BLOOD SPECIMEN / Unknown Venipuncture / Unknown 06/30/2025 12:31 PM EDT 06/30/2025 12:33 PM EDT us Sahil Meza MD LAB BLOOD ORDERABLES Final Resul t [address] [address], * BNP (B-Type Natriuretic Peptide) (06/30/2025 12:31 PM EDT) Beta-Natriureti c Peptide (BNP) <10 <120 pg/mL [facility] [id number] 06/30/2025 3:10 PM EDT [facility] Comment:BNP may be falsely e levated in patients on the medication Entresto. For these patients, NT-proBNP, [id number], will more reliably reflect the status of therapy. Blood PERIPHERAL BLOOD SPECIMEN / Unknown Venipuncture / Unknown 06/30/2025 12:31 PM EDT 06/30/2025 12:33 PM EDT us Sahil Meza MD LAB BLOOD ORDERABLES Final Resul t [facility] [address] [place] [address], [place] [phone] * (ABNORMAL) Toxicology Screen, Blood (06/30/2025 12:31 PM EDT) [facility] Acetaminophen Result,Blood <3(L) Therapuetic Range 10-30 ug/mL MAXIE [id number] 06/30/2025 1:15 PM EDT [facility] Alcohol <10 <10 mg/dL MAXIE [id number] 06/30/2025 1:15 PM EDT [facility] Salicylate Level, Blood <5(L) 15 - <30 mg/dL MAXIE [id number] 06/30/2025 1:15 PM EDT [facility] Blood PERIPHERAL BLOOD SPECIMEN / Unknown Venipuncture / Unknown 06/30/2025 12:31 PM EDT 06/30/2025 12:33 PM EDT us Sahil Meza MD LAB BLOOD ORDERABLES Final Resul t [facility] [address] [place] [address], [place] [phone] * Gold Top (06/30/2025 12:31 PM EDT) [facility] Gold Top Tube Received 06/30/2025 2:02 PM EDT [facility] Blood PERIPHERAL BLOOD SPECIMEN / Unknown Venipuncture / Unknown 06/30/2025 12:31 PM EDT 06/30/2025 12:33 PM EDT us Sahil Meza MD LAB BLOOD ORDERABLES Final Resul t Performing Organization Address City/[facility]/ZIP Co de Phone Number [facility] [address] [place] [address], [place] [phone] * Lavender Top (06/30/2025 12:31 PM EDT) Lav Top Tube Received 06/30/2025 2:02 PM EDT [facility] Blood PERIPHERAL BLOOD SPECIMEN / Unknown Venipuncture / Unknown 06/30/2025 12:31 PM EDT 06/30/2025 12:33 PM EDT us Sahil Meza MD LAB BLOOD ORDERABLES Final Resul t [facility] [address] [place] [address], [place] [phone] * Mint Green Top (06/30/2025 12:31 PM EDT) PST Tube Received 06/30/2025 2:02 PM EDT [facility] Blood PERIPHERAL BLOOD SPECIMEN / Unknown Venipuncture / Unknown 06/30/2025 12:31 PM EDT 06/30/2025 12:32 PM EDT us Sahil Meza MD LAB BLOOD ORDERABLES Final Resul t Performing Organization Address City/[facility]/ZIP Co de Phone Number [address] [address], [place] [phone] * Red Top (06/30/2025 12:31 PM EDT) Red Top Tube Received 06/30/2025 2:02 PM EDT [facility] Blood PERIPHERAL BLOOD SPECIMEN / Unknown Venipuncture / Unknown 06/30/2025 12:31 PM EDT 06/30/2025 12:33 PM EDT us Sahil Meza MD LAB BLOOD ORDERABLES Final Resul t [address] [address], [place] [phone] * Blue Top (06/30/2025 12:31 PM EDT) Pathologist [facility] Blue Top Tube Received 06/30/2025 2:02 PM EDT [facility] Blood PERIPHERAL BLOOD SPECIMEN / Unknown Venipuncture / Unknown 06/30/2025 12:31 PM EDT 06/30/2025 12:33 PM EDT us Sahil Meza MD LAB BLOOD ORDERABLES Final Resul t Performing Organization Address [facility] de Phone Number [address] [address], * Magnesium (06/30/2025 12:31 PM EDT) Pathologist [facility] Magnesium, Blood 1.8 1.8 - 2.4 mg/dL [address] 06/30/2025 1:13 PM EDT [facility] Blood PERIPHERAL BLOOD SPECIMEN / Unknown Venipuncture / Unknown 06/30/2025 12:31 PM EDT 06/30/2025 12:32 PM EDT us Sahil Meza MD LAB BLOOD ORDERABLES Final Resul t Performing Organization Address [facility] Phone Number [address] [address], * (ABNORMAL) Comprehensive Metabolic Panel (06/30/2025 12:31 PM EDT) [facility] Sodium 138 134 - 144 mmol/L [address] 06/30/2025 1:13 PM EDT [facility] Potassium 3.5 3.2 - 5.1 mmol/L [address] 06/30/2025 1:13 PM EDT [facility] Chloride 101 97 - 109 mmol/L [place] [id number] 06/30/2025 1:13 PM EDT [facility] Total CO2/Bicarbonate 28 20 - 32 mmol/L [place] [id number] 06/30/2025 1:13 PM EDT [facility] Anion Gap 9 5 - 15 mmol/L [place] [id number] 06/30/2025 1:13 PM EDT [facility] Anion Gap [place] [id number] 06/30/2025 1:13 PM EDT [facility] BUN 13 7 - 20 mg/dL [address] 06/30/2025 1:13 PM EDT [facility] Creatinine, Blood 0.71 0.60 - 1.10 mg/dL [address] 06/30/2025 1:13 PM EDT [facility] Glucose, Blood 86 70 - 110 mg/dL [address] 06/30/2025 1:13 PM EDT [facility] Calcium 8.8 8.5 - 10.5 mg/dL [address] 06/30/2025 1:13 PM EDT [facility] Total Protein 8.2 6.1 - 8.2 g/dL [address] 06/30/2025 1:13 PM EDT [facility] Albumin, Blood 3.8 3.4 - 5.0 g/dL [address] 06/30/2025 1:13 PM EDT [facility] Globulin Result 4.4(H) 2.0 - 4.0 g/dL [address] 06/30/2025 1:13 PM EDT [facility] AST (SGOT) 18 15 - 37 U/L [address] 06/30/2025 1:13 PM EDT [facility] ALT (SGPT) 10 0 - 55 U/L [address] 06/30/2025 1:13 PM EDT [facility] Alkaline Phosphatase 64 40 - 150 U/L [address] 06/30/2025 1:13 PM EDT [facility] Total Bilirubin 0.9 0.2 - 1.2 mg/dL [address] 06/30/2025 1:13 PM EDT [facility] Estimated GFR(CKD-EPI) 97 >=60 mL/min/BSA [address] 06/30/2025 1:[facility] Blood PERIPHERAL BLOOD SPECIMEN / Unknown Venipuncture / Unknown 06/30/2025 12:31 PM EDT 06/30/2025 12:32 PM EDT us Sahil Meza MD LAB BLOOD ORDERABLES Final Resul t [address] [place] [address], [place] [phone] * ECG 12 lead, to be obtained, chest pain (06/30/2025 11:38 AM EDT) Ventricular Heart Rate 59 BPM EKG WIN QRSD Interval 100 ms EKG WIN QT Interval 384 ms EKG WIN QTC Interval 380 ms EKG WIN R [place] 47 degrees EKG WIN T Wave [place] 70 degrees EKG WIN 06/30/2025 11:3 8 [...] Preston Rainey ([id number]) on 06/30/2025 5:51:18 PM Sahil Meza MD ECG ORDERABLES Final Result [facility] [address] [place] [address] from Last 3 Months Insurance [facility] Advance Directives * Full Code (Latest Code Status on File) Date Activated Date Inactivated Comments 02/02/2024 10:10 AM 06/30/2025 10:25 AM Care Teams Puncher And Fastener Relationship Specialty Start Date End Date Mirella Bobby MD [address] [place] [address] PCP - General Internal Medicine 02/02/24
[2025-07-01 23:45] VITALS: BP 116/65; PULSE 48; RESP 16; TEMP 36.8; O2SAT 92
--- NOTE | 2025-07-02 00:26 | PM.EVENT ---
Event Note Date of Service: 07/02/25 Event Note: I was called urgently bedside to evaluate the pt due to concern for being unresponsive or ?lethargic. the pt is alert and awake. reports that she feels terrible and is withdrawing from fentanyl. she last used 2 days ago and uses daily. reports recent OD with narcan administration by boyfriend. she denies any other drug use or etoh. no history of seizures. denies any LOC, injury, change in vision, or hallucinations. she is able to follow commands and is requesting to go to sleep. no witnessed seizure or incontinence. pupils are equal, round and reactive to light. tongue midline. speaking and moving extremities without difficulties. Time Spent With Patient Time: Total time managing care of this patient today ____ minutes.
[2025-07-02 02:00] VITALS: BP 132/70; PULSE 46; RESP 14; TEMP 36; O2SAT 95
[2025-07-02] MEDS: Magnesium Hydrox/Alum Hydrox 30 ML ORAL.SUSP PO (03:52)
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
--- NOTE | 2025-07-02 07:04 | PHA.MEDREC ---
Pharmacy Consult ? Medication Reconciliation Pharmacy has completed the medication reconciliation. reviewed med rec done by nursing, matches claims.
[2025-07-02 08:42] VITALS: BP 119/64; PULSE 51; RESP 20; TEMP 36.9; O2SAT 96
--- NOTE | 2025-07-02 08:46 | HO.PM.IMCN ---
History of Present Illness Data of Consult Service Date: 07/02/25 Primary Care Provider: None Physician HPI Reason for consult: Medical consult 60-year-old female with a past medical history of PTSD, depressive disorder, opioid use disorder, anxiety, depression and hopelessness related to her returned cancer diagnosis, presented to [facility] emergency department following an unintentional overdose on fentanyl and cocaine requiring Narcan. On exam she reports symptoms of withdrawal. Patient was seen last evening requesting lethargy, she was found to awake and alert and reporting symptoms of withdrawal. On exam she is following commands today, reporting some abdominal discomfort. Also has a diagnosis of IBS. Has had some nausea and vomiting. Abdomen soft nontender nondistended. She has no other concerns. Has received methadone today. Her electrolytes were within normal limits, no evidence of renal or kidney impairment, magnesium WNL, negative troponin, negative Tylenol alcohol or salicylate levels. Labs with no leukocytosis, noted to have mild anemia. Urinalysis negative for blood, positive for benzos, cocaine and fentanyl. Review of Systems Review of Systems: Denies any shortness of breath, chest pain, headaches, dysuria, abdominal pain or discomfort, nausea, vomiting or diarrhea. Denies fever or chills. PMFSH Social History Household Members: Spouse Housing: House Do you presently have visiting nurse or other home services: No Patient Tobacco Use Status: Current everyday Tobacco user Tobacco use type: Cigarette Smoked in Last 30 Days: Yes e-Cigarette/Vaping Use: Never Used Patient Interested in Nicotine Replacement: Yes (patch and gum) Patient Given Instructions on How to Stop Smoking: No Second Hand Smoke Exposure: Yes Have you been hit, kicked, punched, or otherwise hurt by someone within the past year? If so, by whom?: No Do you feel safe in your current relationship?: Yes Is there a partner from a previous relationship who is making you feel unsafe now?: No Are you made to feel afraid or neglected: No Advance Directives: No Advance Directives Information Provided: No Do you have a plan to hurt others: No Plan Recently lost weight without trying: Yes How much weight loss: Unsure Eating poorly because of decreased appetite: No Nutrition screen score: 4 Nutrition Risks: No Nutritional Risk Patient : No : No Poor oral hygiene: No service: No Sexual orientation: Straight/Heterosexual Meds Allergies Allergy/AdvReac Type Severity Reaction Status Date / Time Unable to Assess Allergy Verified 07/01/25 21:49 Active Medications: Current Medications Acetaminophen (Acetaminophen 325 Mg Tablet) 650 mg PO Q6H PRN PRN Reason: Headache/Pain, Scale 1-10 Last Admin: 07/02/25 03:52 Dose: 650 mg Al Hydroxide/Mg Hydroxide (Magnesium Hydrox/Alum Hydrox 30 Ml Oral.Susp) 30 ml PO Q6H PRN PRN Reason: Heartburn/Nausea Last Admin: 07/02/25 03:52 Dose: 30 ml Hydroxyzine HCl (Hydroxyzine Hcl 25 Mg Tablet) 25 mg PO Q6H PRN PRN Reason: mild anxiety Last Admin: 07/02/25 03:52 Dose: 25 mg Magnesium Hydroxide (Milk Of Magnesia 30 Ml Oral.Susp) 30 ml PO DAILY PRN PRN Reason: Constipation Nicotine (Nicotine 21 Mg Patch.Td24) 21 mg TRANSDERMA DAILY PRN PRN Reason: smoking cessation Nicotine Polacrilex (Nicotine Polacrilex 2 Mg Gum) 4 mg BUCCAL Q2H PRN PRN Reason: Nicotine Cravings Olanzapine (Olanzapine 5 Mg Tablet) 5 mg PO TID PRN PRN Reason: agitation Trazodone HCl (Trazodone Hcl 50 Mg Tablet) 50 mg PO BEDTIME MRX1 PRN PRN Reason: Insomnia Last Admin: 07/02/25 03:52 Dose: 50 mg Home Medications ?Medication ?Instructions ?Recorded ?Confirmed ?Last Taken ?Type apixaban 5 mg tablet (Eliquis) 5 mg PO BID 07/01/25 07/01/25 Unknown History Physical Exam Vital Signs and Narrative: Vital Signs: Last Vital Signs Temp 98.4 F 07/02/25 08:42 Pulse 51 07/02/25 08:42 Resp 20 07/02/25 08:42 BP 119/64 07/02/25 08:42 Pulse Ox 96 07/02/25 08:42 O2 Del Method Room Air 07/02/25 08:42 Alert and oriented X3, clam and cooperative. Answers questions. Neuro: CN II-X11 intact, no deficits, visual acuity intact EYES: PERRLA, EOM intact ENT: Hearing intact, MMM Cardiac: S1 S2 RRR, No ectopy Pulmonary: lungs clear to auscultation, No increased WOB. Abdominal: BS active in all 4 quadrants, no guarding or tenderness MSK: Strength 5/5 upper and lower extremities : Deferred Extremities: No edema in lower extremities Psych: Lying on her side curled up, moves easily in bed. Skin: Warm and dry, Intact Assessment and Plan (1) Squamous cell carcinoma in situ: Status: Acute Plan 60-year-old female with a past medical history listed below ED with a unintentional overdose. Expressing suicidal ideation, seen by crisis and now admitted for further care. 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 Recently Cancer returned and she has been to depressed and struggling with active addiction to tend to her medical needs. Will need outpatient follow up with primary care team and Oncology Thank you for allowing me to participate in the care of this patient. Will follow with you, please notify medical provider with any changes in condition or concerns.
--- NOTE | 2025-07-02 09:52 | HO.PSYADMNOT ---
HPI Date of Service: 07/02/25 Chief Complaint: complex PTSD, major depressive disorder Sources of Information: patient interviewed, chart reviewed and crisis/core team assessment reviewed HPI Subjective Notes: Brannon Warning, Conditional Voluntary and 3 Day Narrative: pt seen at 11:55am on 07/02 Patient is a 60-year-old female with history of PE x2 on Eliquis, PTSD, depression, IV cocaine/opioid dependence, return of squamous cell carcinoma head/neck, who presents following accidental overdose, needing Narcan. Patient reports that she struggles with chronic PTSD symptoms. When she overdosed and needed Narcan, she got very scared, feeling out of control self loathing so self presented. She endorses passive wish, sometimes wishing she would not wake up. Patient currently in withdrawal nauseous, and very uncomfortable and interview was kept short. She denies any SI at all. Denies any AVH and says she just has problems with dudes and drugs... She says it has been years since she was sober. 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; owns her own home Has a partner Substance History: Crack cocaine and heroin dependency for years Trauma History: Patient endorses long history of trauma Diagnostics Vital Signs (24Hr): Vital Signs - 24 hr 07/01/25 23:45 07/02/25 02:00 07/02/25 08:42 Temperature 98.2 F 96.8 F 98.4 F Pulse Rate 48 L 46 L 51 Respiratory Rate 16 14 20 Blood Pressure 116/65 132/70 119/64 Pulse Oximetry 92 95 96 Oxygen Delivery Method Room Air Room Air Room Air Meds/Allergies Meds Home Medications ?Medication ?Instructions ?Recorded ?Confirmed ?Type apixaban 5 mg tablet (Eliquis) 5 mg PO BID 07/01/25 07/01/25 History Allergies Allergies Allergy/AdvReac Type Severity Reaction Status Date / Time Unable to Assess Allergy Verified 07/01/25 21:49 Mental Status Exam Mental Status Exam Narrative: Pt is alert and oriented; behavior is lying curled up in bed cooperative; isolating but friendly on approach; patient is not in distress; dressed in hospital attire, edentulous, disheveled;; mood is described as not good and affect congruent; eye contact appropriate; Speech is normal rate, volume and prosody and not pressured; psychomotor retardation present; thought process is organized and goal directed; Thought content is on self loathing thoughts; otherwise pertinent to relevant topics and without any delusional content, paranoid ideations or grandiosity; passive SI; no active SI/HI. Denies AVH and there is no evidence of perceptual disturbance. Patients insight and judgment impaired Assessment & Plan Assessment & Plan (1) MDD (major depressive disorder): Status: Acute Code(s): F32.9 - Major depressive disorder, single episode, unspecified (2) PTSD (post-traumatic stress disorder): Status: Acute Code(s): F43.10 - Post-traumatic stress disorder, unspecified (3) Cocaine use disorder: Status: Acute Code(s): F14.10 - Cocaine abuse, uncomplicated (4) Opioid use disorder: Status: Acute Code(s): F11.90 - Opioid use, unspecified, uncomplicated (5) Squamous cell carcinoma in situ: Status: Acute Code(s): D09.9 - Carcinoma in situ, unspecified Plan Patient is a 60-year-old female with history of PE x2 on Eliquis, PTSD, depression, IV cocaine/opioid dependence, return of squamous cell carcinoma head/neck, who presents following accidental overdose, needing Narcan. Patient reports that she struggles with chronic PTSD symptoms. When she overdosed and needed Narcan, she got very scared, feeling out of control self loathing so self presented. She endorses passive wish, sometimes wishing she would not wake up. Patient currently in withdrawal nauseous, and very uncomfortable and interview was kept short. She denies any SI at all. Denies any AVH and says she just has problems with dudes and drugs... She says it has been years since she was sober. Patient says she has been too depressed to attend to her return of squamous cell carcinoma Formulation/clinical reasoning: Patient in the throes of withdrawal so will get more information once feeling better. Patient wants to get back on methadone, used to be on 50 mg, last time she took it was 3 weeks ago. Patient reports history of 2 Plan CV Q 15 minute checks Eliquis 5 mg b.i.d. history of pulmonary embolism Titrate methadone to 30 mg daily; Continue interview; gather collateral Patient educated on: diagnosis, medication risk/benefits, substance abuse, therapeutic strategies and medical condition Informed Consent: understands Reason for continued inpatient stay Substantial Risk for: rapid decompensation Statement Statement: I have reviewed the history and physical and performed a pertinent examination on my patient. No changes have occurred unless specified. If the History and Physical was not performed prior to admission, the Hospitalist's service will be consulted for completing the admission physical. Time Spent With Patient Time: Total time managing care of this patient today ____ minutes.
[2025-07-02 11:35] VITALS: BP 132/69; PULSE 52
[2025-07-02] MEDS: methADONE HCl 20 MG/2 ML ORAL.CONC 10 MG PO (12:10)
[2025-07-02] MEDS: methADONE HCl 20 MG/2 ML ORAL.CONC PO (13:44)
[2025-07-02] MEDS: Nicotine 21 MG PATCH.TD24 TRANSDERMA (13:48)
--- NOTE | 2025-07-02 15:57 | MHC.RECOVRN ---
TW attempted to meet with pt in 510-2. The intention was to discuss recovery support and resources after Addiction Medicine Consult was received. On approach pt was laying in bed, with blanket over head. She removed the blanket when name was called and reports experiencing some cramping but does report an improvement after receiving a total of 30mg of Methadone. Pt states she is using 3g of IV heroin daily and reports she last attended [facility] in [place], a few months ago . TW to verify methadone dosing history and will return to revisit pt in the morning after her withdrawal symptoms improve. TW is available for ongoing support as needed.
[2025-07-02 20:00] VITALS: BP 95/53; PULSE 89; RESP 18; TEMP 35.8; O2SAT 90
[2025-07-03] MEDS: methADONE HCl 20 MG/2 ML ORAL.CONC 30 MG PO (08:19)
[2025-07-03 09:00] VITALS: BP 123/80; PULSE 60; RESP 16; TEMP 36.8; O2SAT 95
[2025-07-03] MEDS: Nicotine 21 MG PATCH.TD24 TRANSDERMA (09:06)
--- NOTE | 2025-07-03 11:33 | HO.PSYCHPN ---
Subjective Subjective Date of Service: 07/03/25 Reason For Visit: complex PTSD, major depressive disorder Interim History: Met with patient; discussed with team Withdrawal better. Patient out and about in the milieu, well groomed, cooperative, friendly inappropriate. Discussed history at length and patient has history of bipolar 2 disorder where she has manic episodes where she has lots of energy, no sleep, talking fast, irritable, sometimes feeling invincible online shopping sprees; patient however is still able to function and is productive during these episodes. Typically depressive episodes are moderate however since cancer diagnosis they have become much more severe. Patient has been on Seroquel 150 mg in the past and it did not make her tired. Reviewed risks/side effects of antipsychotic medications and lithium and patient would like to try Seroquel 1st. Hep C sober for 18 years. Discussed history of relapse. Patient was getting Fentanyl patch for cancer pain which eventually lead her to relapse about 1.5 years ago History of trauma as a child Mental Status Exam Mental Status Exam Narrative: Pt is alert and oriented; behavior is cooperative, friendly and calm; patient is not in distress; dressed in casual attire with adequate hygiene and grooming; mood is described as depressed and affect congruent, downcaste, tearful at times; eye contact appropriate; Speech is normal rate, volume and prosody and not pressured; less psychomotor retardation present; thought process is organized and goal directed; Thought content is on tx, struggles with addiction, self loathing; otherwise pertinent to relevant topics and without any delusional content, paranoid ideations or grandiosity; denies any SI/HI. Denies AVH and there is no evidence of perceptual disturbance. Patients insight and judgment impaired but improving Diagnostics Vital Signs (24Hr): Vital Signs - 24 hr 07/02/25 11:35 07/02/25 20:00 07/03/25 09:00 Temperature 96.4 F L 98.2 F Pulse Rate 52 89 60 Respiratory Rate 18 16 Blood Pressure 132/69 95/53 L 123/80 Pulse Oximetry 90 L Oxygen Delivery Method Room Air Room Air Labs 07/03/25 16:38 07/03/25 16:38 Medications Medications Current Medications Acetaminophen (Acetaminophen 325 Mg Tablet) 650 mg PO Q6H PRN PRN Reason: Headache/Pain, Scale 1-10 Last Admin: 07/03/25 09:05 Dose: 650 mg Al Hydroxide/Mg Hydroxide (Magnesium Hydrox/Alum Hydrox 30 Ml Oral.Susp) 30 ml PO Q6H PRN PRN Reason: Heartburn/Nausea Last Admin: 07/02/25 03:52 Dose: 30 ml Apixaban (Apixaban 5 Mg Tablet) 5 mg PO BID ON LICENSE OF [facility] Last Admin: 07/03/25 08:19 Dose: 5 mg Clonidine HCl (Clonidine Hcl 0.1 Mg Tablet) 0.1 mg PO Q4H PRN; Protocol PRN Reason: nausea/vomiting Last Admin: 07/03/25 03:40 Dose: 0.1 mg Cyclobenzaprine HCl (Cyclobenzaprine Hcl 10 Mg Tablet) 10 mg PO TID PRN PRN Reason: muscle cramps Last Admin: 07/03/25 10:36 Dose: 10 mg Dicyclomine HCl (Dicyclomine Hcl 10 Mg Capsule) 10 mg PO QID PRN PRN Reason: stomach cramps Last Admin: 07/03/25 10:37 Dose: 10 mg Hydroxyzine HCl (Hydroxyzine Hcl 25 Mg Tablet) 25 mg PO Q6H PRN PRN Reason: mild anxiety Last Admin: 07/03/25 03:40 Dose: 25 mg Loperamide HCl (Loperamide Hcl 2 Mg Capsule) 2 mg PO Q6H PRN PRN Reason: loose stool Magnesium Hydroxide (Milk Of Magnesia 30 Ml Oral.Susp) 30 ml PO DAILY PRN PRN Reason: Constipation Methadone HCl (Methadone Hcl 20 Mg/2 Ml Oral.Conc) 30 mg PO DAILY@0800 ON LICENSE OF [facility] Last Admin: 07/03/25 08:19 Dose: 30 mg Nicotine (Nicotine 21 Mg Patch.Td24) 21 mg TRANSDERMA DAILY PRN PRN Reason: smoking cessation Last Admin: 07/03/25 09:06 Dose: 21 mg Nicotine Polacrilex (Nicotine Polacrilex 2 Mg Gum) 4 mg BUCCAL Q2H PRN PRN Reason: Nicotine Cravings Last Admin: 07/02/25 21:15 Dose: 4 mg Olanzapine (Olanzapine 5 Mg Tablet) 5 mg PO TID PRN PRN Reason: agitation Ondansetron HCl (Ondansetron Odt 4 Mg Tab.Rapdis) 4 mg TRANSLINGU Q6H PRN PRN Reason: Nausea and Vomiting Trazodone HCl (Trazodone Hcl 50 Mg Tablet) 50 mg PO BEDTIME MRX1 PRN PRN Reason: Insomnia Last Admin: 07/02/25 03:52 Dose: 50 mg Allergies Allergies Allergy/AdvReac Type Severity Reaction Status Date / Time Unable to Assess Allergy Verified 07/01/25 21:49 Assessment & Plan Assessment & Plan (1) Bipolar II disorder: Status: Acute Code(s): F31.81 - Bipolar II disorder (2) PTSD (post-traumatic stress disorder): Status: Acute Code(s): F43.10 - Post-traumatic stress disorder, unspecified (3) Cocaine use disorder: Status: Acute Code(s): F14.10 - Cocaine abuse, uncomplicated (4) Opioid use disorder: Status: Acute Code(s): F11.90 - Opioid use, unspecified, uncomplicated (5) Squamous cell carcinoma in situ: Status: Acute Code(s): D09.9 - Carcinoma in situ, unspecified Plan Patient is a 60-year-old female with history of PE x2 on Eliquis, PTSD, depression, IV cocaine/opioid dependence, return of squamous cell carcinoma head/neck, Hep C, who presents following accidental overdose, needing Narcan. Patient reports that she struggles with chronic PTSD symptoms. When she overdosed and needed Narcan, she got very scared, feeling out of control self loathing so self presented. She endorses passive wish, sometimes wishing she would not wake up. Patient currently in withdrawal nauseous, and very uncomfortable and interview was kept short. She denies any SI at all. Denies any AVH and says she just has problems with dudes and drugs... She says it has been years since she was sober. Patient says she has been too depressed to attend to her return of squamous cell carcinoma Formulation/clinical reasoning: Patient in the throes of withdrawal so will get more information once feeling better. Patient wants to get back on methadone, used to be on 50 mg, last time she took it was 3 weeks ago. Patient reports history of 2 Hospital course: 07/03 Withdrawal better. Patient out and about in the milieu, well groomed, cooperative, friendly inappropriate. Discussed history of cancer diagnosis, treatment, return of; last round of chemotherapy was traumatic and painful Discussed history at length and patient has history of bipolar 2 disorder where she has manic episodes where she has lots of energy, no sleep, talking fast, irritable, sometimes feeling invincible online shopping sprees; patient however is still able to function and is productive during these episodes. Typically depressive episodes are moderate however since cancer diagnosis they have become much more severe. Patient has been on Seroquel 150 mg in the past and it did not make her tired. Reviewed risks/side effects of antipsychotic medications and lithium and patient would like to try Seroquel 1st since she has tried it before Plan CV Q 15 minute checks Start Seroquel 100 mg q.h.s. for bipolar depression; titrate to 300 mg as tolerated Eliquis 5 mg b.i.d. history of pulmonary embolism Titrate methadone to 40 mg daily; Continue interview; gather collateral Patient educated on: diagnosis, medication risk/benefits, substance abuse, therapeutic strategies and medical condition Informed Consent: understands Reason for continued inpatient stay Substantial Risk for: rapid decompensation Time Spent With Patient Time: Total time managing care of this patient today ____ minutes.
--- NOTE | 2025-07-03 11:58 | HO.PM.IMPN ---
Subjective Subjective Date of Service: 07/03/25 Interval History: Patient is awake, out of bed, reports that she no longer has stomach pain, nausea or vomiting which she attributed to withdrawal. Reports she feels better however she is concerned about areas on bilateral forearms where she injected drugs. Area on right is scabbed in indurated. Area on left is swollen, warm, indurated, no drainage. No fluctuance. Patient reports that she is on sure how long the areas have been inflamed. Review of Systems Denies any shortness of breath, chest pain, headaches, dysuria, abdominal pain or discomfort, nausea, vomiting or diarrhea. Denies fever or chills. Physical Exam Exam: Exam: Alert and oriented X3, clam and cooperative. Answers questions. Neuro: CN II-X11 intact, no deficits, visual acuity intact. Ambulating with steady gait EYES: PERRLA, EOM intact ENT: Hearing intact, MMM Cardiac: S1 S2 RRR, No ectopy Pulmonary: lungs clear to auscultation, No increased WOB. Abdominal: BS active in all 4 quadrants, no guarding or tenderness MSK: Strength 5/5 upper and lower extremities : Deferred Extremities: No edema in lower extremities Psych: Mood stable, Quiet and cooperative. Skin: Warm and dry. Area on right forearm 1 cm wide, no drainage, mild warmth surrounding. Area on left forearm approximately 1.5 cm indurated area, warm, swollen, no fluctuance. Vital Signs: Vital Signs: Last Vital Signs Temp 98.2 F 07/03/25 09:00 Pulse 60 07/03/25 09:00 Resp 16 07/03/25 09:00 BP 123/80 07/03/25 09:00 Pulse Ox 90 L 07/02/25 20:00 O2 Del Method Room Air 07/03/25 09:00 Objective Data Active Medications Acetaminophen (Acetaminophen 325 Mg Tablet) 650 mg PO Q6H PRN PRN Reason: Headache/Pain, Scale 1-10 Last Admin: 07/03/25 09:05 Dose: 650 mg Documented By: MIKE Al Hydroxide/Mg Hydroxide (Magnesium Hydrox/Alum Hydrox 30 Ml Oral.Susp) 30 ml PO Q6H PRN PRN Reason: Heartburn/Nausea Last Admin: 07/02/25 03:52 Dose: 30 ml Documented By: MARIS Apixaban (Apixaban 5 Mg Tablet) 5 mg PO BID [facility] Last Admin: 07/03/25 08:19 Dose: 5 mg Documented By: MKIE Clonidine HCl (Clonidine Hcl 0.1 Mg Tablet) 0.1 mg PO Q4H PRN; Protocol PRN Reason: nausea/vomiting Last Admin: 07/03/25 03:40 Dose: 0.1 mg Documented By: IVETTE Cyclobenzaprine HCl (Cyclobenzaprine Hcl 10 Mg Tablet) 10 mg PO TID PRN PRN Reason: muscle cramps Last Admin: 07/03/25 10:36 Dose: 10 mg Documented By: MIKE Dicyclomine HCl (Dicyclomine Hcl 10 Mg Capsule) 10 mg PO QID PRN PRN Reason: stomach cramps Last Admin: 07/03/25 10:37 Dose: 10 mg Documented By: MIKE Docusate Sodium (Docusate Sodium 100 Mg Capsule) 100 mg PO DAILY [facility] Hydrocortisone (Hydrocortisone 2.5 % Rectal Cr 30 Gm Tube) 1 appl [place] BID [facility] Hydroxyzine HCl (Hydroxyzine Hcl 25 Mg Tablet) 25 mg PO Q6H PRN PRN Reason: mild anxiety Last Admin: 07/03/25 03:40 Dose: 25 mg Documented By: IVETTE Loperamide HCl (Loperamide Hcl 2 Mg Capsule) 2 mg PO Q6H PRN PRN Reason: loose stool Magnesium Hydroxide (Milk Of Magnesia 30 Ml Oral.Susp) 30 ml PO DAILY PRN PRN Reason: Constipation Methadone HCl (Methadone Hcl 20 Mg/2 Ml Oral.Conc) 10 mg PO BEDTIME [facility] Stop: 07/04/25 07:00 Methadone HCl (Methadone Hcl 20 Mg/2 Ml Oral.Conc) 40 mg PO DAILY@0800 [facility] Nicotine (Nicotine 21 Mg Patch.Td24) 21 mg TRANSDERMA DAILY PRN PRN Reason: smoking cessation Last Admin: 07/03/25 09:06 Dose: 21 mg Documented By: MIKE Nicotine Polacrilex (Nicotine Polacrilex 2 Mg Gum) 4 mg BUCCAL Q2H PRN PRN Reason: Nicotine Cravings Last Admin: 07/02/25 21:15 Dose: 4 mg Documented By: IVETTE Ondansetron HCl (Ondansetron Odt 4 Mg Tab.Rapdis) 4 mg TRANSLINGU Q6H PRN PRN Reason: Nausea and Vomiting Trazodone HCl (Trazodone Hcl 50 Mg Tablet) 50 mg PO BEDTIME MRX1 PRN PRN Reason: Insomnia Last Admin: 07/02/25 03:52 Dose: 50 mg Documented By: MARIS Assessment and Plan (1) Cellulitis and abscess of other specified site: Status: Acute Plan 60-year-old female with a past medical history listed below ED with a unintentional overdose. Expressing suicidal ideation, seen by crisis and now admitted for further care. PTSD/depressive disorder/opioid use disorder/anxiety/depression Treatment per psychiatric team Cellulitis bilateral forearm As a result of injecting drugs, patient unclear when it started. 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 Recently Cancer returned and she has been to depressed and struggling with active addiction to tend to her medical needs. Will need outpatient follow up with primary care team and Oncology Thank you for allowing me to participate in the care of this patient. Will follow with you, please notify medical provider with any changes in condition or concerns. Quality Stroke Does the patient have a stroke diagnosis?: No VTE Prior VTE?: No VTE Risk Level:: Medical - low VTE Device Contraindication: Treatment Not Indicated VTE Drug Contraindication: Treatment Not Indicated
[2025-07-03] MEDS: Hydrocortisone 2.5 % Rectal Cr 30 GM TUBE 1 APPL PR (12:21)
--- NOTE | 2025-07-03 14:54 | MHC.RECOVRN ---
TW met with pt in after receiving a consult to Addiction Medicine for OUD. On approach pt was laying partly in bed, with headphones on, listening to music with her eyes closed. She awoke to name being called and agreed to meeting with this remote mortgage underwriter. Pt was pleasant, calm and engaged through out interview. Pt was initiated on a total of 30mg of Methadone 07/02/25 and states she feels better but is still experiencing some cramping in the evenings . Pt states she spoke to her psychiatric provider and is expected to receive and additional 10mg of methadone in the evening to help with symptom management. Pt states she remained abstinent from IV heroin and cocaine for 18yrs, beginning in 1991. She goes on to report she attended AA regularly, utilized an AA sponsor, and sponsored other women herself. She also states she was part of an institutions Committee and showed pride in all the work she had accomplished during those 18 years. She mentioned her AA sponsor has since and identified the need to obtain a new one. 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 In addition to her treatments she reports utilizing fentanyl patches, morphine tablets and lollipops, percocet, and liquid percocet for pain managment. When I finished the chemo and radiation they just took me off the pain medication. The pain was so bad that I turned back to using drugs just so I didnt have to feel . Pt reports her daily current use includes smoking an 8ball of cocaine & shooting about 3g of heroin IV. Pt states she has attended several ATS, CSS, and psychiatric facilities in the past and presents as goal oriented and future focused If I did it before, I can do it again . Discussed and provided written education and resources for harm reduction techniques including utilizing [employer] for sterile supplies and drug testing, harm reduction techniques such as not sharing needles, utilizing a test shot when using a supply from a new supplier, the importance of seeking medical help for wound care, as well as education about the current drug supply and cutting agents used. Pt also provided information on [facility], recovery coaching, & local NA/AA meetings as well as other pathways to recovery. Pt states she is hopeful to continue to her recovery journey and is looking forward to helping others again in the near future.
--- NOTE | 2025-07-03 15:11 | P.EN_ITS ---
Event Note Date of Service: 07/03/25 Event Note: Addiction consult placed for patient with OUD Seen by snorkelling instructor --see note for details Methadone titration being managed by attending psychiatric provider No additional intervention or follow up necessary at this time Reconsult if needed Time Spent With Patient Time: Total time managing care of this patient today ____ minutes.
--- NOTE | 2025-07-03 15:32 | MHC.RECOVRN ---
MARY called [facility] and was informed the Pt has been discharged from their clinic in May 2025 for non-compliance. Per Nurse Commercial Roofer, Pt had previously received up to 150mg of Methadone but was decreased due to non-compliance. Her last reported dosed was 30mg on 05/06/25.
[2025-07-03 16:42] LABS: MANUAL DIFF FLAG NO
[2025-07-03 16:44] LABS: Hematocrit 28.9 % (37.0-47.0); Hemoglobin 9.0 g/dl (12.0-16.0); Imm Gran Abs Auto 0.02 X10*3/uL (0.00-0.03); Imm Gran Pct Auto 0.2 % (0.0-0.4); Lymphocytes Absolute Auto 1.3 X10*3/uL (1.2-4.9); Mean Corpuscular HGB Conc 31.1 g/dl (31.0-35.0); Mean Corpuscular Hemoglobin 20.7 pg (27.0-33.0); Mean Corpuscular Volume 66.6 fL (80.0-98.0); NRBC Abs Auto 0.020 X10*3/uL (0.0-0.012); NRBC Pct Auto 0.2 /100WBC (0.0-0.2); Platelet Count 259 X10*3/uL (160-400); Red Blood Count 4.34 X10*6/uL (4.20-5.50); White Blood Count 8.7 X10*3/uL (4.8-10.8)
[2025-07-03] MEDS: methADONE HCl 20 MG/2 ML ORAL.CONC 10 MG PO (16:50)
[2025-07-03 17:28] LABS: Alanine Aminotransferase 14 U/L (0-31); Albumin Level 3.6 g/dL (3.5-5.0); Alkaline Phosphatase 60 U/L (39-117); Anion Gap 13 (12-20); Aspartate Amino Transferase 24 U/L (5-31); Blood Urea Nitrogen 18 mg/dL (9-16); Calcium 8.4 mg/dL (8.4-10.2); Carbon Dioxide 25 mmol/L (22-29); Chloride 105 mmol/L (96-108); Cholesterol 155 mg/dL (<200); Estimated Glomerular Filt Rate > 60; HDL Cholesterol 37 mg/dL (>40); Potassium 3.7 mmol/L (3.3-5.1); Sodium 139 mmol/L (135-145); Total Protein 6.6 g/dL (6.5-8.0); Triglycerides 94 mg/dL (<150)
[2025-07-03 18:16] LABS: Free T4 (Free Thyroxine) < 0.42 ng/dL (0.71-1.85)
--- NOTE | 2025-07-03 18:38 | PC.NURSE ---
Addendum entered and electronically signed by Mihaela Price RN 07/03/25 18:56: Hospitalist consult to be ordered per Jossy Adkins. Original Note: TSH results 58.63, free T4<0.42; prescriber, Jossy Adkins, notified.
[2025-07-03 18:58] LABS: Alanine Aminotransferase 12 U/L (0-31); Albumin Level 3.8 g/dL (3.5-5.0); Alkaline Phosphatase 69 U/L (39-117); Anion Gap 16 (12-20); Aspartate Amino Transferase 25 U/L (5-31); Blood Urea Nitrogen 18 mg/dL (9-16); Calcium 8.6 mg/dL (8.4-10.2); Carbon Dioxide 24 mmol/L (22-29); Chloride 104 mmol/L (96-108); Estimated Glomerular Filt Rate > 60; Potassium 3.9 mmol/L (3.3-5.1); Sodium 140 mmol/L (135-145); Total Protein 7.1 g/dL (6.5-8.0)
[2025-07-03 20:00] VITALS: BP 93/56; PULSE 60; TEMP 36; O2SAT 95
[2025-07-04] MEDS: methADONE HCl 20 MG/2 ML ORAL.CONC 40 MG PO (07:54)
[2025-07-04 08:00] VITALS: BP 101/64; PULSE 56; RESP 17; TEMP 36.6; O2SAT 96
[2025-07-04] MEDS: Hydrocortisone 2.5 % Rectal Cr 30 GM TUBE 1 APPL PR (09:09)
[2025-07-04] MEDS: Nicotine 21 MG PATCH.TD24 TRANSDERMA (09:11)
--- NOTE | 2025-07-04 13:56 | P.PNPSI_ITS ---
Subjective Subjective Date of Service: 07/04/25 Reason For Visit: complex PTSD, major depressive disorder Interim History: Patient reports feeling anxious and depressed; she has been pacing while listening to music on unit headphones. attending groups. denies SI/HI/VH/AH. continue tx plan Medication Compliance: Yes Side effects from medications: No Attending Groups: Yes Mental Status Exam Mental Status Exam Patient Appearance: Appropriate Patient Orientation: Person, Place, Time and Situation Level of Consciousness: Awake and Alert Patient Behavior: Appropriate and Cooperative Mood Description: Depressed Affect Description: Depressed Ability to Follow Directions: Good Speech Pattern: Clear Memory Description: Intact Hallucinations: None Delusions: Not Present Thought Process: Intact Thought Content: positive for Intact Diagnostics Vital Signs (24Hr): Vital Signs - 24 hr 07/03/25 20:00 07/04/25 08:00 Temperature 96.8 F 98 F Pulse Rate 60 56 Respiratory Rate 17 Blood Pressure 93/56 L 101/64 Pulse Oximetry 95 96 Oxygen Delivery Method Room Air Room Air Labs 07/03/25 16:38 07/03/25 18:13 Labs: Laboratory Results - last 48 hr 07/03/25 07/03/25 16:38 18:13 WBC 8.7 RBC 4.34 Hgb 9.0 L Hct 28.9 L MCV 66.6 L MCH 20.7 L MCHC 31.1 RDW 15.9 Plt Count 259 MPV 9.1 L Immature Gran % (Auto) 0.2 Neut % (Auto) 77.2 H Lymph % (Auto) 14.9 L [place] % (Auto) 6.4 Eos % (Auto) 0.7 Baso % (Auto) 0.6 Lymph # (Auto) 1.3 [place] # (Auto) 0.6 Eos # (Auto) 0.1 Baso # (Auto) 0.1 Abs Immat Gran (auto) 0.02 Absolute Neuts (auto) 6.7 Absolute Nucleated RBC 0.020 H Nucleated RBC % (auto) 0.2 Sodium 139 140 Potassium 3.7 3.9 Chloride 105 104 Carbon Dioxide 25 24 Anion Gap 13 16 BUN 18 H 18 H Creatinine 0.71 0.76 Estim Creat Clear Calc TNP TNP Estimated GFR > 60 > 60 Random Glucose 87 77 Estimat Average Glucose 103 Hemoglobin A1c % 5.2 Calcium 8.4 8.6 Total Bilirubin 0.4 0.4 AST 24 25 ALT 14 12 Alkaline Phosphatase 60 69 Total Protein 6.6 7.1 Albumin 3.6 3.8 Triglycerides 94 Cholesterol 155 LDL Cholesterol, Calc 100 H HDL Cholesterol 37 L TSH 58.63 H Free T4 < 0.42 L Medications Medications Current Medications Acetaminophen (Acetaminophen 325 Mg Tablet) 650 mg PO Q6H PRN PRN Reason: Headache/Pain, Scale 1-10 Last Admin: 07/03/25 09:05 Dose: 650 mg Al Hydroxide/Mg Hydroxide (Magnesium Hydrox/Alum Hydrox 30 Ml Oral.Susp) 30 ml PO Q6H PRN PRN Reason: Heartburn/Nausea Last Admin: 07/02/25 03:52 Dose: 30 ml Apixaban (Apixaban 5 Mg Tablet) 5 mg PO BID [facility] Last Admin: 07/04/25 08:47 Dose: 5 mg Cephalexin HCl (Cephalexin 500 Mg Capsule) 500 mg PO Q6H [facility] Stop: 07/13/25 11:59 Last Admin: 07/04/25 12:20 Dose: 500 mg Clonidine HCl (Clonidine Hcl 0.1 Mg Tablet) 0.1 mg PO Q4H PRN; Protocol PRN Reason: nausea/vomiting Last Admin: 07/03/25 03:40 Dose: 0.1 mg Cyclobenzaprine HCl (Cyclobenzaprine Hcl 10 Mg Tablet) 10 mg PO TID PRN PRN Reason: muscle cramps Last Admin: 07/04/25 09:12 Dose: 10 mg Dicyclomine HCl (Dicyclomine Hcl 10 Mg Capsule) 10 mg PO QID PRN PRN Reason: stomach cramps Last Admin: 07/03/25 10:37 Dose: 10 mg Docusate Sodium (Docusate Sodium 100 Mg Capsule) 100 mg PO DAILY [facility] Last Admin: 07/04/25 08:47 Dose: 100 mg Doxycycline Monohydrate (Doxycycline Monohydrate 100 Mg Capsule) 100 mg PO Q12H [facility] Stop: 07/13/25 20:59 Last Admin: 07/04/25 08:47 Dose: 100 mg Hydrocortisone (Hydrocortisone 2.5 % Rectal Cr 30 Gm Tube) 1 appl [place] BID [facility] Last Admin: 07/04/25 09:09 Dose: 1 appl Hydroxyzine HCl (Hydroxyzine Hcl 25 Mg Tablet) 25 mg PO Q6H PRN PRN Reason: mild anxiety Last Admin: 07/03/25 03:40 Dose: 25 mg Loperamide HCl (Loperamide Hcl 2 Mg Capsule) 2 mg PO Q6H PRN PRN Reason: loose stool Magnesium Hydroxide (Milk Of Magnesia 30 Ml Oral.Susp) 30 ml PO DAILY PRN PRN Reason: Constipation Methadone HCl (Methadone Hcl 20 Mg/2 Ml Oral.Conc) 40 mg PO DAILY@0800 [facility] Last Admin: 07/04/25 07:54 Dose: 40 mg Nicotine (Nicotine 21 Mg Patch.Td24) 21 mg TRANSDERMA DAILY PRN PRN Reason: smoking cessation Last Admin: 07/04/25 09:11 Dose: 21 mg Nicotine Polacrilex (Nicotine Polacrilex 2 Mg Gum) 4 mg BUCCAL Q2H PRN PRN Reason: Nicotine Cravings Last Admin: 07/02/25 21:15 Dose: 4 mg Ondansetron HCl (Ondansetron Odt 4 Mg Tab.Rapdis) 4 mg TRANSLINGU Q6H PRN PRN Reason: Nausea and Vomiting Quetiapine Fumarate (Quetiapine Fumarate 100 Mg Tablet) 100 mg PO BEDTIME [facility] Last Admin: 07/03/25 20:51 Dose: 100 mg Trazodone HCl (Trazodone Hcl 50 Mg Tablet) 50 mg PO BEDTIME MRX1 PRN PRN Reason: Insomnia Last Admin: 07/02/25 03:52 Dose: 50 mg Allergies Allergies Allergy/AdvReac Type Severity Reaction Status Date / Time Unable to Assess Allergy Verified 07/01/25 21:49 Assessment & Plan Assessment & Plan (1) Bipolar II disorder: Status: Acute Code(s): F31.81 - Bipolar II disorder (2) PTSD (post-traumatic stress disorder): Status: Acute Code(s): F43.10 - Post-traumatic stress disorder, unspecified (3) Cocaine use disorder: Status: Acute Code(s): F14.10 - Cocaine abuse, uncomplicated (4) Opioid use disorder: Status: Acute Code(s): F11.90 - Opioid use, unspecified, uncomplicated (5) Squamous cell carcinoma in situ: Status: Acute Code(s): D09.9 - Carcinoma in situ, unspecified Plan Patient is a 60-year-old female with history of PE x2 on Eliquis, PTSD, depression, IV cocaine/opioid dependence, return of squamous cell carcinoma head/neck, Hep C, who presents following accidental overdose, needing Narcan. Patient reports that she struggles with chronic PTSD symptoms. When she overdosed and needed Narcan, she got very scared, feeling out of control self loathing so self presented. She endorses passive wish, sometimes wishing she would not wake up. Patient currently in withdrawal nauseous, and very uncomfortable and interview was kept short. She denies any SI at all. Denies any AVH and says she just has problems with dudes and drugs... She says it has been years since she was sober. Patient says she has been too depressed to attend to her return of squamous cell carcinoma Formulation/clinical reasoning: Patient in the throes of withdrawal so will get more information once feeling better. Patient wants to get back on methadone, used to be on 50 mg, last time she took it was 3 weeks ago. Patient reports history of 2 Hospital course: 07/03 Withdrawal better. Patient out and about in the milieu, well groomed, cooperative, friendly inappropriate. Discussed history of cancer diagnosis, treatment, return of; last round of chemotherapy was traumatic and painful Discussed history at length and patient has history of bipolar 2 disorder where she has manic episodes where she has lots of energy, no sleep, talking fast, irritable, sometimes feeling invincible online shopping sprees; patient however is still able to function and is productive during these episodes. Typically depressive episodes are moderate however since cancer diagnosis they have become much more severe. Patient has been on Seroquel 150 mg in the past and it did not make her tired. Reviewed risks/side effects of antipsychotic medications and lithium and patient would like to try Seroquel 1st since she has tried it before 07/04: continue tx plan Plan CV Q 15 minute checks Start Seroquel 100 mg q.h.s. for bipolar depression; titrate to 300 mg as tolerated Eliquis 5 mg b.i.d. history of pulmonary embolism Titrate methadone to 40 mg daily; Continue interview; gather collateral Patient educated on: diagnosis and medication risk/benefits Reason for continued inpatient stay Substantial Risk for: med/psych decompensation Time Spent With Patient Time: Total time managing care of this patient today _15___ minutes.
--- NOTE | 2025-07-04 17:35 | PM.EVENT ---
Event Note Date of Service: 07/04/25 Event Note: 60-year-old female with a past medical history of PTSD, depressive disorder, opioid use disorder, anxiety, depression and hopelessness related to her returned cancer diagnosis who was admitted to [facility] with hospitalist consult for hypothyroidism. Patient's TSH elevated at 58.63 with free T4 undetectable. We will begin pt on levothyroxine 25 mcg daily for now. Pt should follow up with primary care in 4-6 weeks for repeat labs and titration of levothyroxine as necessary. Time Spent With Patient Time: Total time managing care of this patient today ____ minutes.
[2025-07-04 17:50] VITALS: BMI 24.3
[2025-07-04 20:00] VITALS: BP 123/66; PULSE 62; TEMP 36.6; O2SAT 96
[2025-07-05] MEDS: methADONE HCl 20 MG/2 ML ORAL.CONC 40 MG PO (07:42)
[2025-07-05 08:00] VITALS: BP 120/80; PULSE 72; RESP 18; TEMP 36.8; O2SAT 95
[2025-07-05] MEDS: Hydrocortisone 2.5 % Rectal Cr 30 GM TUBE 1 APPL PR (09:01)
[2025-07-05] MEDS: Milk of Magnesia 30 ML ORAL.SUSP PO (09:04)
[2025-07-05] MEDS: Nicotine 21 MG PATCH.TD24 TRANSDERMA (09:04)
--- NOTE | 2025-07-05 11:57 | P.PNPSI_ITS ---
Subjective Subjective Date of Service: 07/05/25 Reason For Visit: complex PTSD, major depressive disorder Interim History: Active on unit. Patient reports feeling same as yesterday, still anxious and depressed ; pt requesting to have Ensures with meals. Ordered Ensures BID; pt aware. denies SI/HI/VH/AH. continue tx plan. Medication Compliance: Yes Side effects from medications: No Mental Status Exam Mental Status Exam Patient Appearance: Appropriate Patient Orientation: Person, Place, Time and Situation Level of Consciousness: Awake and Alert Patient Behavior: Appropriate and Cooperative Mood Description: Depressed and Anxious Affect Description: Depressed Ability to Follow Directions: Good Speech Pattern: Clear Memory Description: Intact Hallucinations: None Delusions: Not Present Thought Process: Intact Thought Content: positive for Intact Diagnostics Vital Signs (24Hr): Vital Signs - 24 hr 07/04/25 20:00 07/05/25 08:00 Temperature 97.9 F 98.2 F Pulse Rate 62 72 Respiratory Rate 18 Blood Pressure 123/66 120/80 Pulse Oximetry 96 95 Oxygen Delivery Method Room Air Room Air BMI result Body Mass Index 24.3 Labs 07/03/25 16:38 07/03/25 18:13 Labs: Laboratory Results - last 48 hr 07/03/25 07/03/25 16:38 18:13 WBC 8.7 RBC 4.34 Hgb 9.0 L Hct 28.9 L MCV 66.6 L MCH 20.7 L MCHC 31.1 RDW 15.9 Plt Count 259 MPV 9.1 L Immature Gran % (Auto) 0.2 Neut % (Auto) 77.2 H Lymph % (Auto) 14.9 L Clare % (Auto) 6.4 Eos % (Auto) 0.7 Baso % (Auto) 0.6 Lymph # (Auto) 1.3 Clare # (Auto) 0.6 Eos # (Auto) 0.1 Baso # (Auto) 0.1 Abs Immat Gran (auto) 0.02 Absolute Neuts (auto) 6.7 Absolute Nucleated RBC 0.020 H Nucleated RBC % (auto) 0.2 Sodium 139 140 Potassium 3.7 3.9 Chloride 105 104 Carbon Dioxide 25 24 Anion Gap 13 16 BUN 18 H 18 H Creatinine 0.71 0.76 Estim Creat Clear Calc TNP TNP Estimated GFR > 60 > 60 Random Glucose 87 77 Estimat Average Glucose 103 Hemoglobin A1c % 5.2 Calcium 8.4 8.6 Total Bilirubin 0.4 0.4 AST 24 25 ALT 14 12 Alkaline Phosphatase 60 69 Total Protein 6.6 7.1 Albumin 3.6 3.8 Triglycerides 94 Cholesterol 155 LDL Cholesterol, Calc 100 H HDL Cholesterol 37 L TSH 58.63 H Free T4 < 0.42 L Medications Medications Current Medications Acetaminophen (Acetaminophen 325 Mg Tablet) 650 mg PO Q6H PRN PRN Reason: Headache/Pain, Scale 1-10 Last Admin: 07/04/25 20:20 Dose: 650 mg Al Hydroxide/Mg Hydroxide (Magnesium Hydrox/Alum Hydrox 30 Ml Oral.Susp) 30 ml PO Q6H PRN PRN Reason: Heartburn/Nausea Last Admin: 07/02/25 03:52 Dose: 30 ml Apixaban (Apixaban 5 Mg Tablet) 5 mg PO BID [facility] Last Admin: 07/05/25 08:49 Dose: 5 mg Cephalexin HCl (Cephalexin 500 Mg Capsule) 500 mg PO Q6H [facility] Stop: 07/13/25 11:59 Last Admin: 07/05/25 06:26 Dose: 500 mg Clonidine HCl (Clonidine Hcl 0.1 Mg Tablet) 0.1 mg PO Q4H PRN; Protocol PRN Reason: nausea/vomiting Last Admin: 07/03/25 03:40 Dose: 0.1 mg Cyclobenzaprine HCl (Cyclobenzaprine Hcl 10 Mg Tablet) 10 mg PO TID PRN PRN Reason: muscle cramps Last Admin: 07/04/25 20:20 Dose: 10 mg Dicyclomine HCl (Dicyclomine Hcl 10 Mg Capsule) 10 mg PO QID PRN PRN Reason: stomach cramps Last Admin: 07/03/25 10:37 Dose: 10 mg Docusate Sodium (Docusate Sodium 100 Mg Capsule) 100 mg PO BID [facility] Doxycycline Monohydrate (Doxycycline Monohydrate 100 Mg Capsule) 100 mg PO Q12H [facility] Stop: 07/13/25 20:59 Last Admin: 07/05/25 08:49 Dose: 100 mg Hydrocortisone (Hydrocortisone 2.5 % Rectal Cr 30 Gm Tube) 1 appl MS BID [facility] Last Admin: 07/05/25 09:01 Dose: 1 appl Hydroxyzine HCl (Hydroxyzine Hcl 25 Mg Tablet) 25 mg PO Q6H PRN PRN Reason: mild anxiety Last Admin: 07/04/25 20:20 Dose: 25 mg Levothyroxine Sodium (Levothyroxine Sodium 25 Mcg Tablet) 25 mcg PO DAILY@0600 [facility] Last Admin: 07/05/25 06:26 Dose: 25 mcg Loperamide HCl (Loperamide Hcl 2 Mg Capsule) 2 mg PO Q6H PRN PRN Reason: loose stool Magnesium Hydroxide (Milk Of Magnesia 30 Ml Oral.Susp) 30 ml PO DAILY PRN PRN Reason: Constipation Last Admin: 07/05/25 09:04 Dose: 30 ml Methadone HCl (Methadone Hcl 20 Mg/2 Ml Oral.Conc) 40 mg PO DAILY@0800 [facility] Last Admin: 07/05/25 07:42 Dose: 40 mg Nicotine (Nicotine 21 Mg Patch.Td24) 21 mg TRANSDERMA DAILY PRN PRN Reason: smoking cessation Last Admin: 07/05/25 09:04 Dose: 21 mg Nicotine Polacrilex (Nicotine Polacrilex 2 Mg Gum) 4 mg BUCCAL Q2H PRN PRN Reason: Nicotine Cravings Last Admin: 07/02/25 21:15 Dose: 4 mg Ondansetron HCl (Ondansetron Odt 4 Mg Tab.Rapdis) 4 mg TRANSLINGU Q6H PRN PRN Reason: Nausea and Vomiting Polyethylene Glycol (Polyethylene Glycol 3350 17 Gm Powd.Pack) 17 gm PO DAILY PRN PRN Reason: Constipation Quetiapine Fumarate (Quetiapine Fumarate 100 Mg Tablet) 100 mg PO BEDTIME [facility] Last Admin: 07/04/25 20:20 Dose: 100 mg Trazodone HCl (Trazodone Hcl 50 Mg Tablet) 50 mg PO BEDTIME MRX1 PRN PRN Reason: Insomnia Last Admin: 07/04/25 20:20 Dose: 50 mg Allergies Allergies Allergy/AdvReac Type Severity Reaction Status Date / Time No Known Allergies Allergy Verified 07/05/25 08:51 Assessment & Plan Assessment & Plan (1) Bipolar II disorder: Status: Acute Code(s): F31.81 - Bipolar II disorder (2) PTSD (post-traumatic stress disorder): Status: Acute Code(s): F43.10 - Post-traumatic stress disorder, unspecified (3) Cocaine use disorder: Status: Acute Code(s): F14.10 - Cocaine abuse, uncomplicated (4) Opioid use disorder: Status: Acute Code(s): F11.90 - Opioid use, unspecified, uncomplicated (5) Squamous cell carcinoma in situ: Status: Acute Code(s): D09.9 - Carcinoma in situ, unspecified Plan Patient is a 60-year-old female with history of PE x2 on Eliquis, PTSD, depression, IV cocaine/opioid dependence, return of squamous cell carcinoma head/neck, Hep C, who presents following accidental overdose, needing Narcan. Patient reports that she struggles with chronic PTSD symptoms. When she overdosed and needed Narcan, she got very scared, feeling out of control self loathing so self presented. She endorses passive wish, sometimes wishing she would not wake up. Patient currently in withdrawal nauseous, and very uncomfortable and interview was kept short. She denies any SI at all. Denies any AVH and says she just has problems with dudes and drugs... She says it has been years since she was sober. Patient says she has been too depressed to attend to her return of squamous cell carcinoma Formulation/clinical reasoning: Patient in the throes of withdrawal so will get more information once feeling better. Patient wants to get back on methadone, used to be on 50 mg, last time she took it was 3 weeks ago. Patient reports history of 2 Hospital course: 07/03 Withdrawal better. Patient out and about in the milieu, well groomed, cooperative, friendly inappropriate. Discussed history of cancer diagnosis, treatment, return of; last round of chemotherapy was traumatic and painful Discussed history at length and patient has history of bipolar 2 disorder where she has manic episodes where she has lots of energy, no sleep, talking fast, irritable, sometimes feeling invincible online shopping sprees; patient however is still able to function and is productive during these episodes. Typically depressive episodes are moderate however since cancer diagnosis they have become much more severe. Patient has been on Seroquel 150 mg in the past and it did not make her tired. Reviewed risks/side effects of antipsychotic medications and lithium and patient would like to try Seroquel 1st since she has tried it before 07/04: continue tx plan 07/05: Active on unit. Patient reports feeling same as yesterday, still anxious and depressed ; pt requesting to have Ensures with meals. Ordered Ensures BID; pt aware. denies SI/HI/VH/AH. continue tx plan. Plan CV Q 15 minute checks Start Seroquel 100 mg q.h.s. for bipolar depression; titrate to 300 mg as tolerated Eliquis 5 mg b.i.d. history of pulmonary embolism Titrate methadone to 40 mg daily; Continue interview; gather collateral Patient educated on: diagnosis and medication risk/benefits Reason for continued inpatient stay Substantial Risk for: med/psych decompensation Time Spent With Patient Time: Total time managing care of this patient today __15__ minutes.
[2025-07-05 20:00] VITALS: BP 106/62; PULSE 68; RESP 16; TEMP 36.6; O2SAT 95
[2025-07-06] MEDS: methADONE HCl 20 MG/2 ML ORAL.CONC 40 MG PO (07:46)
[2025-07-06 08:00] VITALS: BP 148/84; PULSE 76; TEMP 36.5; O2SAT 94
[2025-07-06] MEDS: Nicotine 21 MG PATCH.TD24 TRANSDERMA (11:02)
--- NOTE | 2025-07-06 17:03 | P.PNPSI_ITS ---
Subjective Subjective Date of Service: 07/06/25 Reason For Visit: complex PTSD, major depressive disorder Interim History: Met with patient; discussed with team; reviewed chart Still depressed but feeling better, and less so; no SI. Still trouble sleeping but managing to sleep a little better. Agrees to continued increase of Seroquel and methadone. Mental Status Exam Mental Status Exam Narrative: Pt is alert and oriented; behavior is cooperative, friendly and calm; patient is not in distress; dressed in casual attire with adequate hygiene and grooming; mood is described as depressed but better and affect congruent, brighter, calm; eye contact appropriate; Speech is normal rate, volume and prosody and not pressured; no psychomotor retardation present; thought process is organized and goal directed; Thought content is on tx, struggles with addiction, working on self loathing; otherwise pertinent to relevant topics and without any delusional content, paranoid ideations or grandiosity; denies any SI/HI. Denies AVH and there is no evidence of perceptual disturbance. Patients insight and judgment fair Diagnostics Vital Signs (24Hr): Vital Signs - 24 hr 07/05/25 20:00 07/06/25 08:00 Temperature 97.9 F 97.7 F Pulse Rate 68 76 Respiratory Rate 16 Blood Pressure 106/62 148/84 H Pulse Oximetry 95 94 Oxygen Delivery Method Room Air Room Air BMI result Body Mass Index 24.3 Labs 07/03/25 16:38 07/03/25 18:13 Medications Medications Current Medications Acetaminophen (Acetaminophen 325 Mg Tablet) 650 mg PO Q6H PRN PRN Reason: Headache/Pain, Scale 1-10 Last Admin: 07/04/25 20:20 Dose: 650 mg Al Hydroxide/Mg Hydroxide (Magnesium Hydrox/Alum Hydrox 30 Ml Oral.Susp) 30 ml PO Q6H PRN PRN Reason: Heartburn/Nausea Last Admin: 07/02/25 03:52 Dose: 30 ml Apixaban (Apixaban 5 Mg Tablet) 5 mg PO BID [facility] Last Admin: 07/06/25 08:31 Dose: 5 mg Cephalexin HCl (Cephalexin 500 Mg Capsule) 500 mg PO Q6H [facility] Stop: 07/13/25 11:59 Last Admin: 07/06/25 12:15 Dose: 500 mg Clonidine HCl (Clonidine Hcl 0.1 Mg Tablet) 0.1 mg PO Q4H PRN; Protocol PRN Reason: nausea/vomiting Last Admin: 07/03/25 03:40 Dose: 0.1 mg Cyclobenzaprine HCl (Cyclobenzaprine Hcl 10 Mg Tablet) 10 mg PO TID PRN PRN Reason: muscle cramps Last Admin: 07/05/25 21:22 Dose: 10 mg Dicyclomine HCl (Dicyclomine Hcl 10 Mg Capsule) 10 mg PO QID PRN PRN Reason: stomach cramps Last Admin: 07/03/25 10:37 Dose: 10 mg Docusate Sodium (Docusate Sodium 100 Mg Capsule) 100 mg PO BID [facility] Last Admin: 07/06/25 08:31 Dose: 100 mg Doxycycline Monohydrate (Doxycycline Monohydrate 100 Mg Capsule) 100 mg PO Q12H [facility] Stop: 07/13/25 20:59 Last Admin: 07/06/25 08:31 Dose: 100 mg Hydrocortisone (Hydrocortisone 2.5 % Rectal Cr 30 Gm Tube) 1 appl AL BID [facility] Last Admin: 07/06/25 08:56 Dose: Not Given Hydroxyzine HCl (Hydroxyzine Hcl 25 Mg Tablet) 25 mg PO Q6H PRN PRN Reason: mild anxiety Last Admin: 07/05/25 21:11 Dose: 25 mg Levothyroxine Sodium (Levothyroxine Sodium 25 Mcg Tablet) 25 mcg PO DAILY@0600 [facility] Last Admin: 07/06/25 06:36 Dose: 25 mcg Loperamide HCl (Loperamide Hcl 2 Mg Capsule) 2 mg PO Q6H PRN PRN Reason: loose stool Magnesium Hydroxide (Milk Of Magnesia 30 Ml Oral.Susp) 30 ml PO DAILY PRN PRN Reason: Constipation Last Admin: 07/05/25 09:04 Dose: 30 ml Methadone HCl (Methadone Hcl 20 Mg/2 Ml Oral.Conc) 40 mg PO DAILY@0800 [facility] Last Admin: 07/06/25 07:46 Dose: 40 mg Nicotine (Nicotine 21 Mg Patch.Td24) 21 mg TRANSDERMA DAILY PRN PRN Reason: smoking cessation Last Admin: 07/06/25 11:02 Dose: 21 mg Nicotine Polacrilex (Nicotine Polacrilex 2 Mg Gum) 4 mg BUCCAL Q2H PRN PRN Reason: Nicotine Cravings Last Admin: 07/02/25 21:15 Dose: 4 mg Ondansetron HCl (Ondansetron Odt 4 Mg Tab.Rapdis) 4 mg TRANSLINGU Q6H PRN PRN Reason: Nausea and Vomiting Polyethylene Glycol (Polyethylene Glycol 3350 17 Gm Powd.Pack) 17 gm PO DAILY PRN PRN Reason: Constipation Last Admin: 07/05/25 17:53 Dose: 17 gm Quetiapine Fumarate (Quetiapine Fumarate 100 Mg Tablet) 100 mg PO BEDTIME [facility] Last Admin: 07/05/25 21:11 Dose: 100 mg Sodium Biphosphate/Sodium Phosphate (Sodium Phosphate,[place]-Dibasic 133 Ml Enema) 133 ml AL ONCE PRN PRN Reason: Constipation Last Admin: 07/06/25 13:27 Dose: 133 ml Trazodone HCl (Trazodone Hcl 50 Mg Tablet) 50 mg PO BEDTIME MRX1 PRN PRN Reason: Insomnia Last Admin: 07/04/25 20:20 Dose: 50 mg Allergies Allergies Allergy/AdvReac Type Severity Reaction Status Date / Time No Known Allergies Allergy Verified 07/05/25 08:51 Assessment & Plan Assessment & Plan (1) Bipolar II disorder: Status: Acute Code(s): F31.81 - Bipolar II disorder (2) PTSD (post-traumatic stress disorder): Status: Acute Code(s): F43.10 - Post-traumatic stress disorder, unspecified (3) Cocaine use disorder: Status: Acute Code(s): F14.10 - Cocaine abuse, uncomplicated (4) Opioid use disorder: Status: Acute Code(s): F11.90 - Opioid use, unspecified, uncomplicated (5) Squamous cell carcinoma in situ: Status: Acute Code(s): D09.9 - Carcinoma in situ, unspecified Plan Patient is a 60-year-old female with history of PE x2 on Eliquis, PTSD, depression, IV cocaine/opioid dependence, return of squamous cell carcinoma head/neck, Hep C, who presents following accidental overdose, needing Narcan. Patient reports that she struggles with chronic PTSD symptoms. When she overdosed and needed Narcan, she got very scared, feeling out of control self loathing so self presented. She endorses passive wish, sometimes wishing she would not wake up. Patient currently in withdrawal nauseous, and very uncomfortable and interview was kept short. She denies any SI at all. Denies any AVH and says she just has problems with dudes and drugs... She says it has been years since she was sober. Patient says she has been too depressed to attend to her return of squamous cell carcinoma Formulation/clinical reasoning: Patient in the throes of withdrawal so will get more information once feeling better. Patient wants to get back on methadone, used to be on 50 mg, last time she took it was 3 weeks ago. Patient reports history of 2 Hospital course: 07/03 Withdrawal better. Patient out and about in the milieu, well groomed, cooperative, friendly inappropriate. Discussed history of cancer diagnosis, treatment, return of; last round of chemotherapy was traumatic and painful Discussed history at length and patient has history of bipolar 2 disorder where she has manic episodes where she has lots of energy, no sleep, talking fast, irritable, sometimes feeling invincible online shopping sprees; patient however is still able to function and is productive during these episodes. Typically depressive episodes are moderate however since cancer diagnosis they have become much more severe. Patient has been on Seroquel 150 mg in the past and it did not make her tired. Reviewed risks/side effects of antipsychotic medications and lithium and patient would like to try Seroquel 1st since she has tried it before 07/04: continue tx plan 07/05: Active on unit. Patient reports feeling same as yesterday, still anxious and depressed ; pt requesting to have Ensures with meals. Ordered Ensures BID; pt aware. denies SI/HI/VH/AH. continue tx plan. 07/06 increase Seroquel; increase methadone; patient agrees with plan to increase Seroquel to about 300 mg 2 address bipolar patient and prevent manic episodes Plan CV Q 15 minute checks Start Seroquel 150mg q.h.s. for bipolar depression; titrate to 300 mg as tolerated Eliquis 5 mg b.i.d. history of pulmonary embolism Titrate methadone to 50 mg daily; Patient educated on: diagnosis, medication risk/benefits, substance abuse and therapeutic strategies Informed Consent: understands Reason for continued inpatient stay Substantial Risk for: stable for discharge, rapid decompensation and med/psych decompensation Time Spent With Patient Time: Total time managing care of this patient today ____ minutes.
[2025-07-06] MEDS: methADONE HCl 20 MG/2 ML ORAL.CONC 10 MG PO (17:40)
[2025-07-06 19:52] VITALS: BP 134/81; PULSE 81; TEMP 36.9; O2SAT 96
[2025-07-06] MEDS: Hydrocortisone 2.5 % Rectal Cr 30 GM TUBE 1 APPL PR (20:48)
[2025-07-07] MEDS: methADONE HCl 20 MG/2 ML ORAL.CONC 50 MG PO (07:53)
[2025-07-07 08:00] VITALS: BP 101/63; PULSE 74; TEMP 36.4; O2SAT 96
[2025-07-07] MEDS: Nicotine 21 MG PATCH.TD24 TRANSDERMA (08:36)
--- NOTE | 2025-07-07 09:00 | ECG_ITS ---
Test Reason : CHECK QT Blood Pressure : */* mmHG Vent. Rate : 65 BPM Atrial Rate : 65 BPM P-R Int : 208 ms QRS Dur : 96 ms QT Int : 396 ms P-R-T Axes : 66 48 62 degrees QTcB Int : 411 ms Normal sinus rhythm Nonspecific T wave abnormality Borderline ECG No previous ECGs available Referred By: Valentino Rome Electronically Signed By: NATHANIEL ALEXANDER
[2025-07-07] MEDS: methADONE HCl 20 MG/2 ML ORAL.CONC 5 MG PO (15:05)
[2025-07-07 20:00] VITALS: BP 117/71; PULSE 71; RESP 16; TEMP 36.6; O2SAT 96
--- NOTE | 2025-07-07 23:13 | P.PNPSI_ITS ---
Subjective Subjective Date of Service: 07/07/25 Reason For Visit: complex PTSD, major depressive disorder Interim History: Met with patient; discussed with team Patient reports starting to feel better, mood improving and more positive outlook; would like Seroquel increased further; would like methadone increased further; agrees to EKG Patient does not want any further help with substance abuse other than methadone titration; does not want programs Mental Status Exam Mental Status Exam Narrative: Pt is alert and oriented; behavior is cooperative, friendly and calm; patient is not in distress; dressed in casual attire with adequate hygiene and grooming; mood is described as better and affect congruent, brighter, calm; eye contact appropriate; Speech is normal rate, volume and prosody and not pressured; no psychomotor retardation present; thought process is organized and goal directed; Thought content is on tx, struggles with addiction; aftercare; otherwise pertinent to relevant topics and without any delusional content, paranoid ideations or grandiosity; denies any SI/HI. Denies AVH and there is no evidence of perceptual disturbance. Patients insight and judgment fair Diagnostics Vital Signs (24Hr): Vital Signs - 24 hr 07/07/25 08:00 07/07/25 20:00 Temperature 97.5 F 97.8 F Pulse Rate 74 71 Respiratory Rate 16 Blood Pressure 101/63 117/71 Pulse Oximetry 96 96 Oxygen Delivery Method Room Air Room Air BMI result Body Mass Index 24.3 Labs 07/03/25 16:38 07/03/25 18:13 Medications Medications Current Medications Acetaminophen (Acetaminophen 325 Mg Tablet) 650 mg PO Q6H PRN PRN Reason: Headache/Pain, Scale 1-10 Last Admin: 07/04/25 20:20 Dose: 650 mg Al Hydroxide/Mg Hydroxide (Magnesium Hydrox/Alum Hydrox 30 Ml Oral.Susp) 30 ml PO Q6H PRN PRN Reason: Heartburn/Nausea Last Admin: 07/02/25 03:52 Dose: 30 ml Apixaban (Apixaban 5 Mg Tablet) 5 mg PO BID NATHALY Last Admin: 07/07/25 21:11 Dose: 5 mg Cephalexin HCl (Cephalexin 500 Mg Capsule) 500 mg PO Q6H N[facility] Stop: 07/13/25 11:59 Last Admin: 07/07/25 17:37 Dose: 500 mg Clonidine HCl (Clonidine Hcl 0.1 Mg Tablet) 0.1 mg PO Q4H PRN; Protocol PRN Reason: nausea/vomiting Last Admin: 07/03/25 03:40 Dose: 0.1 mg Cyclobenzaprine HCl (Cyclobenzaprine Hcl 10 Mg Tablet) 10 mg PO TID PRN PRN Reason: muscle cramps Last Admin: 07/05/25 21:22 Dose: 10 mg Dicyclomine HCl (Dicyclomine Hcl 10 Mg Capsule) 10 mg PO QID PRN PRN Reason: stomach cramps Last Admin: 07/03/25 10:37 Dose: 10 mg Docusate Sodium (Docusate Sodium 100 Mg Capsule) 100 mg PO BID [facility] Last Admin: 07/07/25 21:11 Dose: 100 mg Doxycycline Monohydrate (Doxycycline Monohydrate 100 Mg Capsule) 100 mg PO Q12H [facility] Stop: 07/13/25 20:59 Last Admin: 07/07/25 21:10 Dose: 100 mg Hydrocortisone (Hydrocortisone 2.5 % Rectal Cr 30 Gm Tube) 1 appl [place] BID [facility] Last Admin: 07/07/25 22:13 Dose: Not Given Hydroxyzine HCl (Hydroxyzine Hcl 25 Mg Tablet) 25 mg PO Q6H PRN PRN Reason: mild anxiety Last Admin: 07/07/25 21:11 Dose: 25 mg Levothyroxine Sodium (Levothyroxine Sodium 25 Mcg Tablet) 25 mcg PO DAILY@0600 [facility] Last Admin: 07/07/25 06:16 Dose: 25 mcg Loperamide HCl (Loperamide Hcl 2 Mg Capsule) 2 mg PO Q6H PRN PRN Reason: loose stool Magnesium Hydroxide (Milk Of Magnesia 30 Ml Oral.Susp) 30 ml PO DAILY PRN PRN Reason: Constipation Last Admin: 07/05/25 09:04 Dose: 30 ml Methadone HCl (Methadone Hcl 20 Mg/2 Ml Oral.Conc) 60 mg PO DAILY@0800 [facility] Nicotine (Nicotine 21 Mg Patch.Td24) 21 mg TRANSDERMA DAILY PRN PRN Reason: smoking cessation Last Admin: 07/07/25 08:36 Dose: 21 mg Nicotine Polacrilex (Nicotine Polacrilex 2 Mg Gum) 4 mg BUCCAL Q2H PRN PRN Reason: Nicotine Cravings Last Admin: 07/02/25 21:15 Dose: 4 mg Ondansetron HCl (Ondansetron Odt 4 Mg Tab.Rapdis) 4 mg TRANSLINGU Q6H PRN PRN Reason: Nausea and Vomiting Polyethylene Glycol (Polyethylene Glycol 3350 17 Gm Powd.Pack) 17 gm PO DAILY PRN PRN Reason: Constipation Last Admin: 07/07/25 08:35 Dose: 17 gm Quetiapine Fumarate (Quetiapine Fumarate 50 Mg Tablet) 250 mg PO BEDTIME NATHALY Last Admin: 07/07/25 21:09 Dose: 250 mg Sodium Biphosphate/Sodium Phosphate (Sodium Phosphate,[place]-Dibasic 133 Ml Enema) 133 ml [place] ONCE PRN PRN Reason: Constipation Last Admin: 07/06/25 13:27 Dose: 133 ml Trazodone HCl (Trazodone Hcl 50 Mg Tablet) 50 mg PO BEDTIME MRX1 PRN PRN Reason: Insomnia Last Admin: 07/06/25 20:48 Dose: 50 mg Allergies Allergies Allergy/AdvReac Type Severity Reaction Status Date / Time No Known Allergies Allergy Verified 07/05/25 08:51 Assessment & Plan Assessment & Plan (1) Bipolar II disorder: Status: Acute Code(s): F31.81 - Bipolar II disorder (2) PTSD (post-traumatic stress disorder): Status: Acute Code(s): F43.10 - Post-traumatic stress disorder, unspecified (3) Cocaine use disorder: Status: Acute Code(s): F14.10 - Cocaine abuse, uncomplicated (4) Opioid use disorder: Status: Acute Code(s): F11.90 - Opioid use, unspecified, uncomplicated (5) Squamous cell carcinoma in situ: Status: Acute Code(s): D09.9 - Carcinoma in situ, unspecified Plan Patient is a 60-year-old female with history of PE x2 on Eliquis, PTSD, depression, IV cocaine/opioid dependence, return of squamous cell carcinoma head/neck, Hep C, who presents following accidental overdose, needing Narcan. Patient reports that she struggles with chronic PTSD symptoms. When she overdosed and needed Narcan, she got very scared, feeling out of control self loathing so self presented. She endorses passive wish, sometimes wishing she would not wake up. Patient currently in withdrawal nauseous, and very uncomfortable and interview was kept short. She denies any SI at all. Denies any AVH and says she just has problems with dudes and drugs... She says it has been years since she was sober. Patient says she has been too depressed to attend to her return of squamous cell carcinoma Formulation/clinical reasoning: Patient in the throes of withdrawal so will get more information once feeling better. Patient wants to get back on methadone, used to be on 50 mg, last time she took it was 3 weeks ago. Patient reports history of 2 Hospital course: 07/03 Withdrawal better. Patient out and about in the milieu, well groomed, cooperative, friendly inappropriate. Discussed history of cancer diagnosis, treatment, return of; last round of chemotherapy was traumatic and painful Discussed history at length and patient has history of bipolar 2 disorder where she has manic episodes where she has lots of energy, no sleep, talking fast, irritable, sometimes feeling invincible online shopping sprees; patient however is still able to function and is productive during these episodes. Typically depressive episodes are moderate however since cancer diagnosis they have become much more severe. Patient has been on Seroquel 150 mg in the past and it did not make her tired. Reviewed risks/side effects of antipsychotic medications and lithium and patient would like to try Seroquel 1st since she has tried it before 07/04: continue tx plan 07/05: Active on unit. Patient reports feeling same as yesterday, still anxious and depressed ; pt requesting to have Ensures with meals. Ordered Ensures BID; pt aware. denies SI/HI/VH/AH. continue tx plan. 07/06 increase Seroquel; increase methadone; patient agrees with plan to increase Seroquel to about 300 mg 2 address bipolar patient and prevent manic episodes 07/07 Patient reports starting to feel better, mood improving and more positive outlook; would like Seroquel increased further; would like methadone increased further; agrees to EKG EKG: Qtc WNL Plan CV Q 15 minute checks Increase Seroquel to 50 mg q.h.s. for bipolar depression; titrate to 300 mg as tolerated Eliquis 5 mg b.i.d. history of pulmonary embolism Titrate methadone to 60 mg daily; Patient educated on: diagnosis, medication risk/benefits and substance abuse Informed Consent: understands Reason for continued inpatient stay Substantial Risk for: stable for discharge and rapid decompensation Time Spent With Patient Time: Total time managing care of this patient today ____ minutes.
[2025-07-08] MEDS: methADONE HCl 20 MG/2 ML ORAL.CONC 60 MG PO (07:48)
[2025-07-08 08:25] VITALS: BP 130/80; PULSE 74; RESP 16; TEMP 36.8; O2SAT 99
[2025-07-08] MEDS: Nicotine 21 MG PATCH.TD24 TRANSDERMA (08:52)
[2025-07-08] MEDS: Hydrocortisone 2.5 % Rectal Cr 30 GM TUBE 1 APPL PR (08:52)
--- NOTE | 2025-07-08 18:00 | HO.PSYCHPN ---
Subjective Subjective Date of Service: 07/08/25 Reason For Visit: complex PTSD, major depressive disorder Interim History: Met with patient; discussed with team Patient reports doing well. Says depression is much better. Agrees to getting Seroquel to 300 mg and asks if methadone can go to 70 mg saying that she needs it to be high enough to keep her sober. Reviewed medications and treatment and patient feels ready for discharge tomorrow Mental Status Exam Mental Status Exam Narrative: Pt is alert and oriented; behavior is cooperative, friendly and calm; patient is not in distress; dressed in casual attire with adequate hygiene and grooming; mood is described as good and affect congruent, brighter, calm; eye contact appropriate; Speech is normal rate, volume and prosody and not pressured; no psychomotor retardation present; thought process is organized and goal directed; Thought content is on tx, struggles with addiction; aftercare; otherwise pertinent to relevant topics and without any delusional content, paranoid ideations or grandiosity; denies any SI/HI. Denies AVH and there is no evidence of perceptual disturbance. Patients insight and judgment fair Diagnostics Vital Signs (24Hr): Vital Signs - 24 hr 07/07/25 20:00 07/08/25 08:25 Temperature 97.8 F 98.2 F Pulse Rate 71 74 Respiratory Rate 16 16 Blood Pressure 117/71 130/80 Pulse Oximetry 96 99 Oxygen Delivery Method Room Air Room Air BMI result Body Mass Index 24.3 Labs 07/03/25 16:38 07/03/25 18:13 Medications Medications Current Medications Acetaminophen (Acetaminophen 325 Mg Tablet) 650 mg PO Q6H PRN PRN Reason: Headache/Pain, Scale 1-10 Last Admin: 07/04/25 20:20 Dose: 650 mg Al Hydroxide/Mg Hydroxide (Magnesium Hydrox/Alum Hydrox 30 Ml Oral.Susp) 30 ml PO Q6H PRN PRN Reason: Heartburn/Nausea Last Admin: 07/02/25 03:52 Dose: 30 ml Apixaban (Apixaban 5 Mg Tablet) 5 mg PO BID NATHALY Last Admin: 07/08/25 08:28 Dose: 5 mg Cephalexin HCl (Cephalexin 500 Mg Capsule) 500 mg PO Q6H [facility] Stop: 07/13/25 11:59 Last Admin: 07/08/25 11:44 Dose: 500 mg Clonidine HCl (Clonidine Hcl 0.1 Mg Tablet) 0.1 mg PO Q4H PRN; Protocol PRN Reason: nausea/vomiting Last Admin: 07/03/25 03:40 Dose: 0.1 mg Cyclobenzaprine HCl (Cyclobenzaprine Hcl 10 Mg Tablet) 10 mg PO TID PRN PRN Reason: muscle cramps Last Admin: 07/05/25 21:22 Dose: 10 mg Dicyclomine HCl (Dicyclomine Hcl 10 Mg Capsule) 10 mg PO QID PRN PRN Reason: stomach cramps Last Admin: 07/03/25 10:37 Dose: 10 mg Docusate Sodium (Docusate Sodium 100 Mg Capsule) 100 mg PO BID [facility] Last Admin: 07/08/25 08:28 Dose: 100 mg Doxycycline Monohydrate (Doxycycline Monohydrate 100 Mg Capsule) 100 mg PO Q12H [facility] Stop: 07/13/25 20:59 Last Admin: 07/08/25 08:27 Dose: 100 mg Hydrocortisone (Hydrocortisone 2.5 % Rectal Cr 30 Gm Tube) 1 appl [place] BID PRN PRN Reason: hemorroids Hydroxyzine HCl (Hydroxyzine Hcl 25 Mg Tablet) 25 mg PO Q6H PRN PRN Reason: mild anxiety Last Admin: 07/07/25 21:11 Dose: 25 mg Levothyroxine Sodium (Levothyroxine Sodium 25 Mcg Tablet) 25 mcg PO DAILY@0600 [facility] Last Admin: 07/08/25 06:19 Dose: 25 mcg Loperamide HCl (Loperamide Hcl 2 Mg Capsule) 2 mg PO Q6H PRN PRN Reason: loose stool Magnesium Hydroxide (Milk Of Magnesia 30 Ml Oral.Susp) 30 ml PO DAILY PRN PRN Reason: Constipation Last Admin: 07/05/25 09:04 Dose: 30 ml Methadone HCl (Methadone Hcl 20 Mg/2 Ml Oral.Conc) 70 mg PO DAILY@0800 [facility] Nicotine (Nicotine 21 Mg Patch.Td24) 21 mg TRANSDERMA DAILY PRN PRN Reason: smoking cessation Last Admin: 07/08/25 08:52 Dose: 21 mg Nicotine Polacrilex (Nicotine Polacrilex 2 Mg Gum) 4 mg BUCCAL Q2H PRN PRN Reason: Nicotine Cravings Last Admin: 07/02/25 21:15 Dose: 4 mg Ondansetron HCl (Ondansetron Odt 4 Mg Tab.Rapdis) 4 mg TRANSLINGU Q6H PRN PRN Reason: Nausea and Vomiting Polyethylene Glycol (Polyethylene Glycol 3350 17 Gm Powd.Pack) 17 gm PO DAILY PRN PRN Reason: Constipation Last Admin: 07/07/25 08:35 Dose: 17 gm Quetiapine Fumarate (Quetiapine Fumarate 300 Mg Tablet) 300 mg PO BEDTIME NATHALY Sodium Biphosphate/Sodium Phosphate (Sodium Phosphate,[place]-Dibasic 133 Ml Enema) 133 ml [place] ONCE PRN PRN Reason: Constipation Last Admin: 07/06/25 13:27 Dose: 133 ml Trazodone HCl (Trazodone Hcl 50 Mg Tablet) 50 mg PO BEDTIME MRX1 PRN PRN Reason: Insomnia Last Admin: 07/06/25 20:48 Dose: 50 mg Allergies Allergies Allergy/AdvReac Type Severity Reaction Status Date / Time No Known Allergies Allergy Verified 07/05/25 08:51 Assessment & Plan Assessment & Plan (1) Bipolar II disorder: Status: Acute Code(s): F31.81 - Bipolar II disorder (2) PTSD (post-traumatic stress disorder): Status: Acute Code(s): F43.10 - Post-traumatic stress disorder, unspecified (3) Cocaine use disorder: Status: Acute Code(s): F14.10 - Cocaine abuse, uncomplicated (4) Opioid use disorder: Status: Acute Code(s): F11.90 - Opioid use, unspecified, uncomplicated (5) Squamous cell carcinoma in situ: Status: Acute Code(s): D09.9 - Carcinoma in situ, unspecified Plan Patient is a 60-year-old female with history of PE x2 on Eliquis, PTSD, depression, IV cocaine/opioid dependence, return of squamous cell carcinoma head/neck, Hep C, who presents following accidental overdose, needing Narcan. Patient reports that she struggles with chronic PTSD symptoms. When she overdosed and needed Narcan, she got very scared, feeling out of control self loathing so self presented. She endorses passive wish, sometimes wishing she would not wake up. Patient currently in withdrawal nauseous, and very uncomfortable and interview was kept short. She denies any SI at all. Denies any AVH and says she just has problems with dudes and drugs... She says it has been years since she was sober. Patient says she has been too depressed to attend to her return of squamous cell carcinoma Formulation/clinical reasoning: Patient in the throes of withdrawal so will get more information once feeling better. Patient wants to get back on methadone, used to be on 50 mg, last time she took it was 3 weeks ago. Patient reports history of 2 Hospital course: 07/03 Withdrawal better. Patient out and about in the milieu, well groomed, cooperative, friendly inappropriate. Discussed history of cancer diagnosis, treatment, return of; last round of chemotherapy was traumatic and painful Discussed history at length and patient has history of bipolar 2 disorder where she has manic episodes where she has lots of energy, no sleep, talking fast, irritable, sometimes feeling invincible online shopping sprees; patient however is still able to function and is productive during these episodes. Typically depressive episodes are moderate however since cancer diagnosis they have become much more severe. Patient has been on Seroquel 150 mg in the past and it did not make her tired. Reviewed risks/side effects of antipsychotic medications and lithium and patient would like to try Seroquel 1st since she has tried it before 07/04: continue tx plan 07/05: Active on unit. Patient reports feeling same as yesterday, still anxious and depressed ; pt requesting to have Ensures with meals. Ordered Ensures BID; pt aware. denies SI/HI/VH/AH. continue tx plan. 07/06 increase Seroquel; increase methadone; patient agrees with plan to increase Seroquel to about 300 mg 2 address bipolar patient and prevent manic episodes 07/07 Patient reports starting to feel better, mood improving and more positive outlook; would like Seroquel increased further; would like methadone increased further; agrees to EKG EKG: Qtc WNL 07/08 patient remained stable, mood is good, depression abated and patient is future oriented. Patient feels good about medication regimen but would like to increase Seroquel further and methadone. Patient has plans to remain sober on methadone when she returns. Does not want programs but will continue with outpatient providers, now include psychiatry and therapy. Patient would like to discharge tomorrow. She is not in imminent risk for harm to self or others and appropriate to return to the community for treatment Plan CV Q 15 minute checks Increase Seroquel to 300 mg q.h.s. for bipolar depression; titrate to 300 mg as tolerated Eliquis 5 mg b.i.d. history of pulmonary embolism Titrate methadone to 70 mg daily; Patient educated on: diagnosis, medication risk/benefits and substance abuse Informed Consent: understands Reason for continued inpatient stay Substantial Risk for: stable for discharge Time Spent With Patient Time: Total time managing care of this patient today ____ minutes.
[2025-07-08 20:00] VITALS: BP 115/58; PULSE 74; RESP 16; TEMP 36.6; O2SAT 92
[2025-07-09] MEDS: methADONE HCl 20 MG/2 ML ORAL.CONC 70 MG PO (07:46)
[2025-07-09 08:00] VITALS: BP 110/73; PULSE 78; TEMP 36.5; O2SAT 93
[2025-07-09 08:45] VITALS: BP 116/85; PULSE 78; RESP 16; TEMP 36.6; O2SAT 96
[2025-07-09] MEDS: Nicotine 21 MG PATCH.TD24 TRANSDERMA (09:35)
[2025-07-09 09:45] VITALS: BP 100/69; PULSE 82; TEMP 36.6; O2SAT 89
--- NOTE | 2025-07-09 09:49 | HO.PSYCHPN ---
Subjective Subjective Date of Service: 07/09/25 Reason For Visit: complex PTSD, major depressive disorder Interim History: Met with patient; discussed with team Patient remains in good mood, depression gone in feeling excited about discharge. However patient accidentally got overdose of methadone to do a medication error. Patient was becoming sedated, with some drops in O2 sat; Discussed with hospitalist and transferred patient to medical floor for monitoring. Mental Status Exam Mental Status Exam Narrative: Pt is alert and oriented; behavior is cooperative, friendly and calm; patient is not in distress; dressed in casual attire with adequate hygiene and grooming; mood is described as good and affect congruent, brighter, calm but also getting drowsy; eye contact appropriate; Speech is normal rate, volume and prosody and not pressured; no psychomotor retardation present; thought process is organized and goal directed; Thought content is on tx, struggles with addiction; aftercare; otherwise pertinent to relevant topics and without any delusional content, paranoid ideations or grandiosity; denies any SI/HI. Denies AVH and there is no evidence of perceptual disturbance. Patients insight and judgment fair Diagnostics Vital Signs (24Hr): Vital Signs - 24 hr 07/08/25 20:00 07/09/25 08:00 07/09/25 08:45 Temperature 97.8 F 97.7 F 98 F Pulse Rate 74 78 78 Respiratory Rate 16 16 Blood Pressure 115/58 L 110/73 116/85 Pulse Oximetry 92 93 96 Oxygen Delivery Method Room Air Room Air Room Air BMI result Body Mass Index 24.3 Labs 07/03/25 16:38 07/03/25 18:13 Medications Medications Current Medications Acetaminophen (Acetaminophen 325 Mg Tablet) 650 mg PO Q6H PRN PRN Reason: Headache/Pain, Scale 1-10 Last Admin: 07/04/25 20:20 Dose: 650 mg Al Hydroxide/Mg Hydroxide (Magnesium Hydrox/Alum Hydrox 30 Ml Oral.Susp) 30 ml PO Q6H PRN PRN Reason: Heartburn/Nausea Last Admin: 07/02/25 03:52 Dose: 30 ml Apixaban (Apixaban 5 Mg Tablet) 5 mg PO BID NATHALY Last Admin: 07/09/25 09:30 Dose: 5 mg Cephalexin HCl (Cephalexin 500 Mg Capsule) 500 mg PO Q6H [facility] Stop: 07/13/25 11:59 Last Admin: 07/09/25 06:53 Dose: 500 mg Clonidine HCl (Clonidine Hcl 0.1 Mg Tablet) 0.1 mg PO Q4H PRN; Protocol PRN Reason: nausea/vomiting Last Admin: 07/03/25 03:40 Dose: 0.1 mg Cyclobenzaprine HCl (Cyclobenzaprine Hcl 10 Mg Tablet) 10 mg PO TID PRN PRN Reason: muscle cramps Last Admin: 07/05/25 21:22 Dose: 10 mg Dicyclomine HCl (Dicyclomine Hcl 10 Mg Capsule) 10 mg PO QID PRN PRN Reason: stomach cramps Last Admin: 07/03/25 10:37 Dose: 10 mg Docusate Sodium (Docusate Sodium 100 Mg Capsule) 100 mg PO BID [facility] Last Admin: 07/09/25 09:30 Dose: 100 mg Doxycycline Monohydrate (Doxycycline Monohydrate 100 Mg Capsule) 100 mg PO Q12H [facility] Stop: 07/13/25 20:59 Last Admin: 07/09/25 09:30 Dose: 100 mg Hydrocortisone (Hydrocortisone 2.5 % Rectal Cr 30 Gm Tube) 1 appl [place] BID PRN PRN Reason: hemorroids Hydroxyzine HCl (Hydroxyzine Hcl 25 Mg Tablet) 25 mg PO Q6H PRN PRN Reason: mild anxiety Last Admin: 07/08/25 22:23 Dose: 25 mg Levothyroxine Sodium (Levothyroxine Sodium 25 Mcg Tablet) 25 mcg PO DAILY@0600 [facility] Last Admin: 07/09/25 06:53 Dose: 25 mcg Loperamide HCl (Loperamide Hcl 2 Mg Capsule) 2 mg PO Q6H PRN PRN Reason: loose stool Magnesium Hydroxide (Milk Of Magnesia 30 Ml Oral.Susp) 30 ml PO DAILY PRN PRN Reason: Constipation Last Admin: 07/05/25 09:04 Dose: 30 ml Methadone HCl (Methadone Hcl 20 Mg/2 Ml Oral.Conc) 70 mg PO DAILY@0800 [facility] On Hold: 07/09/25 09:22 Last Admin: 07/09/25 07:46 Dose: 70 mg Nicotine (Nicotine 21 Mg Patch.Td24) 21 mg TRANSDERMA DAILY PRN PRN Reason: smoking cessation Last Admin: 07/09/25 09:35 Dose: 21 mg Nicotine Polacrilex (Nicotine Polacrilex 2 Mg Gum) 4 mg BUCCAL Q2H PRN PRN Reason: Nicotine Cravings Last Admin: 07/02/25 21:15 Dose: 4 mg Ondansetron HCl (Ondansetron Odt 4 Mg Tab.Rapdis) 4 mg TRANSLINGU Q6H PRN PRN Reason: Nausea and Vomiting Polyethylene Glycol (Polyethylene Glycol 3350 17 Gm Powd.Pack) 17 gm PO DAILY PRN PRN Reason: Constipation Last Admin: 07/07/25 08:35 Dose: 17 gm Quetiapine Fumarate (Quetiapine Fumarate 300 Mg Tablet) 300 mg PO BEDTIME NATHALY Last Admin: 07/08/25 22:22 Dose: 300 mg Sodium Biphosphate/Sodium Phosphate (Sodium Phosphate,Edgar-Dibasic 133 Ml Enema) 133 ml [place] ONCE PRN PRN Reason: Constipation Last Admin: 07/06/25 13:27 Dose: 133 ml Trazodone HCl (Trazodone Hcl 50 Mg Tablet) 50 mg PO BEDTIME MRX1 PRN PRN Reason: Insomnia Last Admin: 07/06/25 20:48 Dose: 50 mg Allergies Allergies Allergy/AdvReac Type Severity Reaction Status Date / Time No Known Allergies Allergy Verified 07/05/25 08:51 Assessment & Plan Assessment & Plan (1) Bipolar II disorder: Status: Acute Code(s): F31.81 - Bipolar II disorder (2) PTSD (post-traumatic stress disorder): Status: Acute Code(s): F43.10 - Post-traumatic stress disorder, unspecified (3) Cocaine use disorder: Status: Acute Code(s): F14.10 - Cocaine abuse, uncomplicated (4) Opioid use disorder: Status: Acute Code(s): F11.90 - Opioid use, unspecified, uncomplicated (5) Squamous cell carcinoma in situ: Status: Acute Code(s): D09.9 - Carcinoma in situ, unspecified Plan Patient is a 60-year-old female with history of PE x2 on Eliquis, PTSD, depression, IV cocaine/opioid dependence, return of squamous cell carcinoma head/neck, Hep C, who presents following accidental overdose, needing Narcan. Patient reports that she struggles with chronic PTSD symptoms. When she overdosed and needed Narcan, she got very scared, feeling out of control self loathing so self presented. She endorses passive wish, sometimes wishing she would not wake up. Patient currently in withdrawal nauseous, and very uncomfortable and interview was kept short. She denies any SI at all. Denies any AVH and says she just has problems with dudes and drugs... She says it has been years since she was sober. Patient says she has been too depressed to attend to her return of squamous cell carcinoma Formulation/clinical reasoning: Patient in the throes of withdrawal so will get more information once feeling better. Patient wants to get back on methadone, used to be on 50 mg, last time she took it was 3 weeks ago. Patient reports history of 2 Hospital course: 07/03 Withdrawal better. Patient out and about in the milieu, well groomed, cooperative, friendly inappropriate. Discussed history of cancer diagnosis, treatment, return of; last round of chemotherapy was traumatic and painful Discussed history at length and patient has history of bipolar 2 disorder where she has manic episodes where she has lots of energy, no sleep, talking fast, irritable, sometimes feeling invincible online shopping sprees; patient however is still able to function and is productive during these episodes. Typically depressive episodes are moderate however since cancer diagnosis they have become much more severe. Patient has been on Seroquel 150 mg in the past and it did not make her tired. Reviewed risks/side effects of antipsychotic medications and lithium and patient would like to try Seroquel 1st since she has tried it before 07/04: continue tx plan 07/05: Active on unit. Patient reports feeling same as yesterday, still anxious and depressed ; pt requesting to have Ensures with meals. Ordered Ensures BID; pt aware. denies SI/HI/VH/AH. continue tx plan. 07/06 increase Seroquel; increase methadone; patient agrees with plan to increase Seroquel to about 300 mg 2 address bipolar patient and prevent manic episodes 07/07 Patient reports starting to feel better, mood improving and more positive outlook; would like Seroquel increased further; would like methadone increased further; agrees to EKG EKG: Qtc WNL 07/08 patient remained stable, mood is good, depression abated and patient is future oriented. Patient feels good about medication regimen but would like to increase Seroquel further and methadone. Patient has plans to remain sober on methadone when she returns. Does not want programs but will continue with outpatient providers, now include psychiatry and therapy. Patient would like to discharge tomorrow. She is not in imminent risk for harm to self or others and appropriate to return to the community for treatment 07/09 Patient remains in good mood, depression gone in feeling excited about discharge. However patient accidentally got overdose of methadone to do a medication error. Placed patient pulse ox, 1:1, ordered serial EKGs; Patient was becoming sedated, with some drops in O2 sat; Discussed with hospitalist and transferred patient to medical floor for monitoring. Plan CV Q 15 minute checks Increase Seroquel to 300 mg q.h.s. for bipolar depression; titrate to 300 mg as tolerated Eliquis 5 mg b.i.d. history of pulmonary embolism Titrate methadone to 70 mg daily; Patient educated on: diagnosis, medication risk/benefits, substance abuse and medical condition Informed Consent: understands Reason for continued inpatient stay Substantial Risk for: stable for discharge (to medical floor for monitoring) Time Spent With Patient Time: Total time managing care of this patient today ____ minutes.
[2025-07-09 10:11] VITALS: BP 111/75; PULSE 86; RESP 14; O2SAT 91
--- NOTE | 2025-07-09 10:18 | PC.NURSE ---
Vital signs monitored per orders. 0845 POX 96% RA. At 0945 POX decreased to 89% RA. Pt A/O x 4 and in no apparent distress. Dr. Rome notified of pt's change in oxygen saturation level. Dr. Rome and hospitalist at bedside to assess. Plan discussed for pt to transfer to medicine for further monitoring.
--- NOTE | 2025-07-09 10:30 | P.DS_ITS ---
DS: Providers Provider Date of Service: 07/09/25 Date of admission: 07/01/25 23:29 Date of discharge: 07/09/25 Primary care physician: None Physician Attending physician on admission: Valentino Rome Consults: 07/01/25 21:49 Consult to Hospitalist Routine Comment: Consulting Provider: [facility] Reason For Exam: admission physical 07/02/25 10:45 Addiction Medicine Provider Routine Consulting Provider: Addiction Covering Reason for consultation: long standing opiate, cocaine use 07/03/25 18:54 Consult to Hospitalist Routine Comment: Consulting Provider: [facility] Reason For Exam: Elevatd TSH and low Free T4. Attending physician on discharge: Valentino Rome DS: Diagnosis Discharge Diagnosis (1) Bipolar II disorder: Status: Acute (2) PTSD (post-traumatic stress disorder): Status: Acute (3) Cocaine use disorder: Status: Acute (4) Opioid use disorder: Status: Acute (5) Squamous cell carcinoma in situ: Status: Acute DS: Medications Discharge Medications Home Medications: Home Medications ?Medication ?Instructions ?Recorded ?Confirmed apixaban 5 mg tablet (Eliquis) 5 mg PO BID 07/01/25 Previous Rx's ?Medication ?Instructions ?Recorded cephalexin 500 mg capsule 500 mg PO Q6H #0 caps clonidine HCl 0.1 mg tablet 0.1 mg PO Q4H PRN nausea/v omiting 07/09/25 30 days #90 tabs docusate sodium 100 mg capsule 100 mg PO BID 30 days # 60 caps 07/09/25 doxycycline monohydrate 100 mg 100 mg PO Q12H #0 caps 07/09/25 capsule hydrocortisone 2.5 % topical cream 1 appl [place] BID PRN h emorroids #30 07/09/25 with perineal applicator grams (Proctozone-HC) levothyroxine 25 mcg tablet 25 mcg PO DAILY@0600 30 da ys #30 07/09/25 tabs methadone 10 mg/mL oral 60 mg (6 mL) PO DAILY@0800 # 0 mL 07/09/25 concentrate (Methadose) nicotine (polacrilex) 4 mg gum 4 mg buccal Q2H 30 days #100 ea 07/09/25 nicotine 21 mg/24 hr daily 21 mg transdermal DAILY PRN 07/09/25 transdermal patch smoking cessation 28 days #2 8 ea quetiapine 300 mg tablet 300 mg PO BEDTIME 30 days #3 0 tabs 07/09/25 Mental Status Exam Mental Status Exam Narrative: Pt is alert and oriented; behavior is cooperative, friendly and calm; patient is not in distress; dressed in casual attire with adequate hygiene and grooming; mood is described as good and affect congruent, brighter, calm but also ge tting drowsy; eye contact appropriate; Speech is normal rate, volume and prosody and not pressured; no psychomotor retardation present; thought process is organized and goal directed; Thought content is on tx, struggles with addiction; aftercare; otherwise pertinent to relevant topics and without any delusional content, paranoid ideations or grandiosity; denies any SI/HI. Denies AVH and there is no evidence of perceptual disturbance. Patients insight and judgment fair Data Data Completed and Pending Completed studies during hospitalization [Text1]: 07/03/25 07/03/25 16:38 18:13 WBC 8.7 RBC 4.34 Hgb 9.0 L Hct 28.9 L MCV 66.6 L MCH 20.7 L MCHC 31.1 RDW 15.9 Plt Count 259 MPV 9.1 L Immature Gran % (Auto) 0.2 Neut % (Auto) 77.2 H Lymph % (Auto) 14.9 L [place] % (Auto) 6.4 Eos % (Auto) 0.7 Baso % (Auto) 0.6 Lymph # (Auto) 1.3 [place] # (Auto) 0.6 Eos # (Auto) 0.1 Baso # (Auto) 0.1 Abs Immat Gran (auto) 0.02 Absolute Neuts (auto) 6.7 Absolute Nucleated RBC 0.020 H Nucleated RBC % (auto) 0.2 Sodium 139 140 Potassium 3.7 3.9 Chloride 105 104 Carbon Dioxide 25 24 Anion Gap 13 16 BUN 18 H 18 H Creatinine 0.71 0.76 Estim Creat Clear Calc TNP TNP Estimated GFR > 60 > 60 Random Glucose 87 77 Estimat Average Glucose 103 Hemoglobin A1c % 5.2 Calcium 8.4 8.6 Total Bilirubin 0.4 0.4 AST 24 25 ALT 14 12 Alkaline Phosphatase 60 69 Total Protein 6.6 7.1 Albumin 3.6 3.8 Triglycerides 94 Cholesterol 155 LDL Cholesterol, Calc 100 H HDL Cholesterol 37 L TSH 58.63 H Free T4 < 0.42 L DS: Summary Hospital Course Hospital Course: Patient is a 60-year-old female with history of PE x2 on Eliquis, PTSD, depression, IV cocaine/opioid dependence, return of squamous cell carcinoma head/neck, Hep C, who presents following accidental overdose, needing Narcan. Patient reports that she struggles with chronic PTSD symptoms. When she overdosed and needed Narcan, she got very scared, feeling out of control self loathing so self presented. She endorses passive wish, sometimes wishing she would not wake up. Patient currently in withdrawal nauseous, and very uncomfortable and interview was kept short. She denies any SI at all. Denies any AVH and says she just has problems with dudes and drugs... She says it has been years since she was sober. Patient says she has been too depressed to attend to her return of squamous cell carcinoma Formulation/clinical reasoning: Patient in the throes of withdrawal so will get more information once feeling better. Patient wants to get back on methadone, used to be on 50 mg, last time she took it was 3 weeks ago. Patient reports history of 2 Hospital course: Admission patient uncomfortable detoxing; reported depression but no SI. Patient soon recovered and was out and about in the milieu,well groomed, cooperative, friendly. Discussed history of cancer diagnosis, treatment, return of; last round of chemotherapy was traumatic and painful Discussed history at length and patient has history of bipolar 2 disorder where she has manic episodes where she has lots of energy, no sleep, talking fast, irritable, sometimes feeling invincible online shopping sprees; patient however is still able to function and is productive during these episodes. Typically depressive episodes are moderate however since cancer diagnosis they have become much more severe. Patient has been on Seroquel 150 mg in the past and it did not make her tired. Reviewed risks/side effects of antipsychotic medications and lithium and patient would like to try Seroquel 1st since she has tried it before Patient was on Seroquel which was eventually titrated to 300 mg. Patient mood significantly improved and depression resolved. Patient was also titrated on methadone. Patient was engaged in treatment and remained stable, with good mood, depression resolved and future oriented. Patient feels good about medication regimen. Patient has plans to remain sober on methadone when she returns. Does not want programs but will continue with outpatient providers, now include psychiatry and therapy. Patient felt back to her regular self and asked for discharge. As mentioned, she has remained in good behavioral and impulse control, appropriate with peers and staff and engaged in treatment. She is not in imminent risk for harm to self or others and appropriate to return to the community for treatment. On day of discharge patient was accidentally given excess mg of methadone in a medication error. This was thoroughly explained to patient who understood and agreed to be transferred to the medical floor for monitoring. Time spent discussing smoking cessation with patient: 3 to 10 minutes Status at Discharge Functional status at discharge: independent ambulation Overall status at discharge: patient is back to baseline Time Spent with Patient Time attestation: Total time managing care of this patient today __50__ minutes. Time spent: Greater than 30 minutes Specific discharge activities: Met with patient; discussed with team; prescriptions; charting; discussing with hospitalist and transferred to medical floor Discharge Plan Discharge Anticipated Discharge Date/Time: 07/09/25 10:30 Patient Disposition: Xfer Other Discharge Diagnosis: Bipolar II disorder Referrals: [facility] [Other] - 07/13/25 9:00 am Referral Note: *Intake appointment with medication provider, Alana [facility] [Other] - 07/16/25 3:00 pm Referral Note: Intake appointment with Armin Spann,None [Primary Care Provider, Medical] - 1 Week Referral Note: Transfer to [facility]. Pt to follow up with PCP after discharge from hospital. Discharge Medications: New doxycycline monohydrate 100 mg Capsule 100 mg PO Q12H Qty: 0 0RF cephalexin 500 mg Capsule 500 mg PO Q6H Qty: 0 0RF nicotine 21 mg/24 hr Patch 24 Hour 21 mg transdermal DAILY PRN (Reason: smoking cessation) 28 Days Qty: 28 0RF nicotine (polacrilex) 4 mg gum 4 mg buccal Q2H 30 Days Qty: 100 0RF clonidine HCl 0.1 mg Tablet 0.1 mg PO Q4H PRN (Reason: nausea/vomiting) 30 Days Qty: 90 0RF Protocol: Hold for SBP< HOLD for SBP < : 90 quetiapine 300 mg Tablet 300 mg PO BEDTIME 30 Days Qty: 30 0RF methadone [Methadose] 10 mg/mL Concentrate 60 mg PO DAILY@0800 Qty: 0 0RF Rx Instructions: Partial Fill upon patient request. docusate sodium 100 mg Capsule 100 mg PO BID 30 Days Qty: 60 0RF levothyroxine 25 mcg Tablet 25 mcg PO DAILY@0600 30 Days Qty: 30 0RF hydrocortisone [Proctozone-HC] 2.5 % Cream With Perineal Applicator 1 appl [place] BID PRN (Reason: hemorroids) Qty: 30 0RF Continued Eliquis 5 mg tablet 5 mg PO BID Discharge Orders: Discharge Order (Routine); Ordered 07/09/25 Ordered By: Valentino Rome Diet: Regular diet Activity on Discharge: As tolerated Stand Alone Forms: Patient Portal Discharge page, Community Support Print Language: Unable To Collect Care Plan Goals: Maintain mood and safe behaviors Take medications as prescribed Continue to pursue sobriety Practice coping skills Continue with outpatient providers and reach out to them as needed Health Concerns: Chronic Health concerns: Mood stability and behaviors Sobriety Squamous Cell Carcinoma Hx of PE on Eloquis Plan of Treatment: Transfer to Medical floor for Monitoring Follow up with your PCP, psychiatric provider and other outpatient providers regarding above concerns Take medications as prescribed Assessment: Risk assessment at time of discharge:? Patient was interviewed prior to discharge and found to be fully oriented and without any SI or HI. Patient has improved insight and judgment and wants to continue treatment. Patient is not in imminent risk of harm to self or others and has a safety plan that includes presenting to the closest ER or calling 911 if feeling unsafe.? Patient has been observed closely by nursing and unit staff throughout admission; patient has not engaged in any behaviors that suggest dangerousness to self or others and has demonstrated appropriate behaviors and impulse control Discharge Date/Time: 07/09/25 12:27
[2025-07-09 11:00] VITALS: BP 94/62; PULSE 76; RESP 12; TEMP 36.6; O2SAT 88
[2025-07-09 12:00] VITALS: BP 112/72; PULSE 74; RESP 14; O2SAT 90
[2025-07-09] MEDS: Naloxone HCl Nasal TAKE HOME 4 MG SPRAY 8 MG NOSTRILALT (12:24)
--- NOTE | 2025-07-09 14:16 | PC.NURSE ---
late entry- at 0746 07/09/25 pt received 150mg of methadone instead of 70mg methadone. HARSHAD DIXON, [place] notified.
--- NOTE | 2025-07-10 08:45 | MHC.CM.PN ---
CM met with Patient at bedside and addressed IMM with her, providing Patient with the original and a copy has been placed on the chart. Patient is from [facility]/ and returning there (pending Care Team Consult) VS home with new CCA services is the tentative plan. CM has initiated and will followf or dc planning. Patient lives in a house with her and uses a cane to assist with mobility. Patient's Daughter/Mike is the HCP and the PCP is Dr. Jyothi Rowell in [place], [place]. If Patient were to dc to home, she would need assist with transport.
== END 2025-07-09 12:27 | disposition other institution (70) | DRG 885 ==
PROVIDERS: Nurse Practitioner Family; Admitting Provider Psychiatry & Neurology Psychiatry; Visit Provider Psychiatry & Neurology Psychiatry
DX: F31.81 Bipolar II disorder (principal); F11.20 Opioid dependence, uncomplicated; F43.10 Post-traumatic stress disorder, unspecified; F17.210 Nicotine dependence, cigarettes, uncomplicated; F14.10 Cocaine abuse, uncomplicated; Z71.6 Tobacco abuse counseling; C02.9 Malignant neoplasm of tongue, unspecified; C76.0 Malignant neoplasm of head, face and neck; Z79.890 Hormone replacement therapy; Z79.899 Other long term (current) drug therapy
CPT/HCPCS: 36415; 80053; 80061; 83036; 84439; 84443; 85025; 93005

== ENCOUNTER 2025-07-01 23:29 | Outpatient (BNV) | payer OTHER, SELFPAY | END 2025-07-07 09:00 | PROVIDERS: Admitting Provider Psychiatry & Neurology Psychiatry; Visit Provider Internal Medicine | DX: Z13.6 Encounter for screening for cardiovascular disorders (principal) | CPT/HCPCS: 93010 ==

== ENCOUNTER → 2025-07-01 23:29 | Outpatient (BNV) | payer OTHER, SELFPAY | PROVIDERS: Admitting Provider Psychiatry & Neurology Psychiatry; Visit Provider Physician Assistant | DX: D09.9 Carcinoma in situ, unspecified (principal) | CPT/HCPCS: 99221; 99231; 99499 ==

== ENCOUNTER → 2025-07-01 23:29 | Outpatient (BNV) | payer OTHER, SELFPAY | PROVIDERS: Admitting Provider Psychiatry & Neurology Psychiatry; Visit Provider Psychiatry & Neurology Psychiatry | DX: F31.81 Bipolar II disorder (principal); F43.10 Post-traumatic stress disorder, unspecified; F14.10 Cocaine abuse, uncomplicated; F11.90 Opioid use, unspecified, uncomplicated; D09.9 Carcinoma in situ, unspecified | CPT/HCPCS: 99232; 99499 ==

== ENCOUNTER 2025-07-09 12:45 | Outpatient (BNV) | payer OTHER, SELFPAY | END 2025-07-10 06:00 | PROVIDERS: Admitting Provider Nurse Practitioner Family; Visit Provider Internal Medicine | DX: I44.0 Atrioventricular block, first degree (principal) | CPT/HCPCS: 93010 ==

== ENCOUNTER 2025-07-09 12:45 | Outpatient (BNV) | payer OTHER, SELFPAY | END 2025-07-09 12:55 | PROVIDERS: Admitting Provider Nurse Practitioner Family; Visit Provider Internal Medicine | DX: R94.31 Abnormal electrocardiogram [ECG] [EKG] (principal); Z13.6 Encounter for screening for cardiovascular disorders | CPT/HCPCS: 93010 ==

== ENCOUNTER 2025-07-09 12:45 | Inpatient (IN) | payer OTHER, SELFPAY ==
--- OUTSIDE RECORDS SUMMARY | 2006-01-01 20:00 | XMS_ITS | Continuity of Care Document ---
Author Organization [facility] Address [address] [place] [address] Phone Care Team Providers Care Highway Maintenance Supervisor Name Role Phone Z-Converted, Provider Unavailable Unavailabl e Advance Directives Directive Yes / No Effective Date File Name No Information Encounters Encounter Description Practice Location Reason(s) For Visit Diagnoses Date Provider Providers Copied on Encounter [facility], [address] [place] [address],[place] [address], [place], [place], [id number], tel:[phone] Chronic hepatitis c without mention of hepatic comaOpioid type dependence, continuous useOtalgia, unspecified Apr- 6 Z-Converted Provider. . [facility], [address] [place] [address],[address], [place], [place], [id number], tel:[phone] Referral of patient without examination or treatment 6 No Information Family History Family Member Type Diagnosis Age At Onset No Information Immunizations Vaccine Date Status Comments HEPATITIS A ADULT administered Source: Ne w Immunization Record Payers Payer name Insurance type Covered constitution party ID Authoriza tion(s) No Information Social [...]
--- NOTE | 2025-07-09 | ECG_ITS ---
Test Reason : check qtc Blood Pressure : */* mmHG Vent. Rate : 70 BPM Atrial Rate : 70 BPM P-R Int : 196 ms QRS Dur : 98 ms QT Int : 398 ms P-R-T Axes : 41 39 54 degrees QTcB Int : 429 ms Normal sinus rhythm Possible Anterior infarct , age undetermined Abnormal ECG When compared with ECG of 07-Jul-2025 10:23, No significant change was found Referred By: Thuy Houston Electronically Signed By: NATHANIEL ALEXANDER
--- NOTE | 2025-07-09 11:15 | P.HPHOSP_ITS ---
History of Present Illness Date of Service: 07/09/25 Chief Complaint: Methadone overdose 60-year-old female with a past medical history of PTSD, depressive disorder, opioid use disorder, anxiety, depression and hopelessness related to her returned cancer diagnosis, presented to [facility] emergency department foll owing an unintentional overdose on fentanyl and cocaine requiring Narcan. Patient has been stabilized on inpatient psychiatric unit. Patient was scheduled to receive methadone 70 mg this morning, she received an additional 80 mg dose in addition to her scheduled dose to equal a total of 150 mgs. On exam she is following commands, reports feeling fatigued. She was slightly hypoxic this morning. Denies any shortness of breath, dizziness, chest pain, nausea or vomiting. Abdomen soft nontender nondistended. Review of Systems Review of Systems: Denies any shortness of breath, chest pain, headaches, dysuria, abdominal pain or discomfort, nausea, vomiting or diarrhea. Denies fever or chills. [facility] Medical History (Updated 07/09/25 @ 11:55 by Thuy Houston DNP) Bipolar II disorder Pulmonary embolism Opioid use disorder Cocaine use disorder PTSD (post-traumatic stress disorder) Social History Household Members: Spouse Housing: House Do you presently have visiting nurse or other home services: No Patient Tobacco Use Status: Current everyday Tobacco user Tobacco use type: Cigarette e-Cigarette/Vaping Use: Never Used Second Hand Smoke Exposure: Yes Advance Directives: No Advance Directives Information Provided: No service: No Sexual orientation: Straight/Heterosexual Meds Allergies Allergy/AdvReac Type Severity Reaction Status Date / Time No Known Allergies Allergy Verified 07/05/25 08:51 Home Medications ?Medication ?Instructions ?Recorded ?Confirmed ?Last Taken ?Type apixaban 5 mg tablet (Eliquis) 5 mg PO BID 07/01/25 Unknown History Physical Exam Vital Signs and Narrative: Vital Signs: Last Vital Signs Temp 98.4 F 07/02/25 08:42 Pulse 51 07/02/25 08:42 Resp 20 07/02/25 08:42 BP 119/64 07/02/25 08:42 Pulse Ox 96 07/02/25 08:42 O2 Del Method Room Air 07/02/25 08:42 Alert and oriented X4, calm and cooperative. Answers questions. Neuro: CN II-X11 intact, no deficits, visual acuity intact EYES: PERRLA, EOM intact ENT: Hearing intact, MMM Cardiac: S1 S2 RRR, No ectopy Pulmonary: lungs clear to auscultation, No increased WOB. Abdominal: BS active in all 4 quadrants, no guarding or tenderness MSK: Strength 5/5 upper and lower extremities : Deferred Extremities: No edema in lower extremities Psych: Sitting at the side of the bed, awake and alert Skin: Warm and dry, Intact Assessment and Plan (1) Accidental methadone overdose: Status: Acute Plan 60-year-old female with a past medical history listed below ED with a unintentional overdose. Patient was treated on inpatient psychiatric unit, transferred to Medicine due to administration of 150 mg dose of methadone instead of her usual 70 mg daily dose. Patient is being transferred to telemetry for monitoring overnight. Unintentional overdose of methadone Patient received 150 mg of methadone this morning instead of her usual 70 mg dose. Admit to telemetry to monitor for any cardiac or respiratory changes. Co ntinuous O2 sat monitor Baseline QTC 411 Narcan prn only if necessary for RR <10 or evidence of respiratory depression. 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 Recently Cancer returned and she has been to depressed and struggling with active addiction to tend to her medical needs. Will need outpatient follow up with primary care team and Oncology Hypothyroidism Recently TSH was elevated to 58.63 with a undetectable free T4 Patient was started on levothyroxine 25 mg daily on 07/04/2025 We will need follow up with the primary care for repeat labs and titration of levothyroxine in 4-6 weeks CODE: FULL CODE VTE Prophy: Advanced LEDsquis Quality Stroke Does the patient have a stroke diagnosis?: No VTE Prior VTE?: Yes VTE Risk Level:: Medical - moderate - high VTE Device Contraindication: Treatment Not Indicated VTE Drug Contraindication: N/A - Med Ordered
[2025-07-09 12:29] LABS: MANUAL DIFF FLAG NO
[2025-07-09 12:33] LABS: Hematocrit 32.2 % (37.0-47.0); Hemoglobin 9.6 g/dl (12.0-16.0); Imm Gran Abs Auto 0.06 X10*3/uL (0.00-0.03); Imm Gran Pct Auto 1.1 % (0.0-0.4); Lymphocytes Absolute Auto 1.3 X10*3/uL (1.2-4.9); Mean Corpuscular HGB Conc 29.8 g/dl (31.0-35.0); Mean Corpuscular Hemoglobin 20.3 pg (27.0-33.0); Mean Corpuscular Volume 68.1 fL (80.0-98.0); NRBC Abs Auto 0.050 X10*3/uL (0.0-0.012); NRBC Pct Auto 0.9 /100WBC (0.0-0.2); Platelet Count 332 X10*3/uL (160-400); Red Blood Count 4.73 X10*6/uL (4.20-5.50); White Blood Count 5.3 X10*3/uL (4.8-10.8)
[2025-07-09 12:58] VITALS: BP 98/60; PULSE 70; RESP 17; TEMP 36.7; O2SAT 93
--- NOTE | 2025-07-09 13:03 | PHA.MEDREC ---
Pharmacy Consult ? Medication Reconciliation Pharmacy has completed the medication reconciliation. Patient transfer from to [facility] - utilized discharge summary. Sydney Link, FelipeD
[2025-07-09 13:58] LABS: Alanine Aminotransferase 14 U/L (0-31); Albumin Level 4.4 g/dL (3.5-5.0); Alkaline Phosphatase 72 U/L (39-117); Anion Gap 11 (12-20); Aspartate Amino Transferase 22 U/L (5-31); Blood Urea Nitrogen 31 mg/dL (9-16); Calcium 9.2 mg/dL (8.4-10.2); Carbon Dioxide 27 mmol/L (22-29); Chloride 104 mmol/L (96-108); Estimated Glomerular Filt Rate 46; Potassium 4.4 mmol/L (3.3-5.1); Sodium 138 mmol/L (135-145); Total Protein 8.0 g/dL (6.5-8.0)
[2025-07-09 14:29] LABS: Magnesium 1.9 mg/dL (1.6-2.6)
--- NOTE | 2025-07-09 14:30 | HO.ADDICT_ITS ---
History of Present Illness Date of Service: 07/09/2025 Chief Complaint: methadone overdose Reason for Consult: accidental methadone overdose Sources of Information: chart reviewed HPI Narrative: Patient is a 60 year old female who transferred to medical floor from unit following accidental administration of wrong dose of methadone. Was ordered to receive 70mg methadone, and received 150mg methadone. Patient seen briefly on medical floor, she was quite drowsy, but maintaining her airway, and answering questions appropriately. Reporting that she just feels very tired. 02 sat 93 with 2L NC. Did not appear to be in any distress. Labs and EKG reviewed Past Psychiatric History: To be determined Medical Evaluation Reviewed: Yes Diagnostics Vital Signs (24Hr): Vital Signs - 24 hr 07/09/25 12:58 Temperature 98.0 F Pulse Rate 70 Respiratory Rate 17 Blood Pressure 98/60 Pulse Oximetry 93 Oxygen Delivery Method Nasal Cannula Oxygen Flow Rate 2 Labs 07/09/25 12:28 07/09/25 13:17 Labs: Laboratory Results - last 48 hr 07/09/25 07/09/25 12:28 13:17 WBC 5.3 RBC 4.73 Hgb 9.6 L Hct 32.2 L MCV 68.1 L MCH 20.3 L MCHC 29.8 L RDW 16.4 H Plt Count 332 D MPV 9.1 L Immature Gran % (Auto) 1.1 H Neut % (Auto) 61.6 Lymph % (Auto) 24.4 Gulf % (Auto) 9.2 Eos % (Auto) 2.4 Baso % (Auto) 1.3 Lymph # (Auto) 1.3 Gulf # (Auto) 0.5 Eos # (Auto) 0.1 Baso # (Auto) 0.1 Abs Immat Gran (auto) 0.06 H Absolute Neuts (auto) 3.3 Absolute Nucleated RBC 0.050 H Nucleated RBC % (auto) 0.9 H Sodium 138 Potassium 4.4 Chloride 104 Carbon Dioxide 27 Anion Gap 11 L BUN 31 H Creatinine 1.19 Estim Creat Clear Calc TNP Estimated GFR 46 Random Glucose 85 Calcium 9.2 D Magnesium 1.9 Total Bilirubin 0.4 AST 22 ALT 14 Alkaline Phosphatase 72 Total Protein 8.0 Albumin 4.4 Mental Status Exam Mental Status Exam Patient Appearance: Well Grooomed Level of Consciousness: Drowsy Speech Pattern: Clear Judgement: Good Medications Medications Current Medications Acetaminophen (Acetaminophen 325 Mg Tablet) 650 mg PO Q6H PRN PRN Reason: Pain, Mild 1-3,fever,headache Al Hydroxide/Mg Hydroxide (Magnesium Hydrox/Alum Hydrox 30 Ml Oral.Susp) 30 ml PO Q4H PRN PRN Reason: Heartburn Apixaban (Apixaban 5 Mg Tablet) 5 mg PO BID [facility] Calcium Carbonate (Calcium Carbonate 750 Mg Tab.Chew) 750 mg PO Q4H PRN PRN Reason: Heartburn Cephalexin HCl (Cephalexin 500 Mg Capsule) 500 mg PO Q6H [facility] Stop: 07/12/25 18:29 Clonidine HCl (Clonidine Hcl 0.1 Mg Tablet) 0.1 mg PO Q4H PRN; Protocol PRN Reason: nausea/vomiting Docusate Sodium (Docusate Sodium 100 Mg Capsule) 100 mg PO BID [facility] Doxycycline Monohydrate (Doxycycline Monohydrate 100 Mg Capsule) 100 mg PO Q12H [facility] Stop: 07/12/25 20:59 Hydrocortisone (Hydrocortisone 2.5 % Rectal Cr 30 Gm Tube) 1 appl MI BID PRN PRN Reason: hemorroids Levothyroxine Sodium (Levothyroxine Sodium 25 Mcg Tablet) 25 mcg PO DAILY@0600 [facility] Magnesium Hydroxide (Milk Of Magnesia 30 Ml Oral.Susp) 30 ml PO DAILY PRN PRN Reason: Constipation Melatonin (Melatonin 3 Mg Tablet) 6 mg PO BEDTIME PRN PRN Reason: Insomnia Naloxone HCl (Naloxone Hcl 0.4 Mg/Ml Vial) 0.1 mg IVPUSH Q2M PRN PRN Reason: Hypoxia, RR <10 Nicotine (Nicotine 21 Mg Patch.Td24) 21 mg TRANSDERMA DAILY PRN PRN Reason: smoking cessation Nicotine Polacrilex (Nicotine Polacrilex 2 Mg Gum) 4 mg BUCCAL Q2H [facility] Last Admin: 07/09/25 13:59 Dose: Not Given Ondansetron HCl (Ondansetron Hcl 4 Mg/2 Ml Vial) 4 mg IVPUSH Q8H PRN PRN Reason: Nausea and Vomiting Polyethylene Glycol (Polyethylene Glycol 3350 17 Gm Powd.Pack) 17 gm PO DAILY PRN PRN Reason: Constipation Quetiapine Fumarate (Quetiapine Fumarate 300 Mg Tablet) 300 mg PO BEDTIME [facility] Sodium Chloride (0.9 % Sodium Chloride Flush 3 Ml Syringe) 3 ml IVFLUSH QSHIFT [facility] Allergies Allergies Allergy/AdvReac Type Severity Reaction Status Date / Time No Known Allergies Allergy Verified 07/05/25 08:51 Assessment & Plan Assessment & Plan (1) Accidental methadone overdose: Status: Acute Code(s): T40.3X1A - Poisoning by methadone, accidental (unintentional), initial encounter Assessment and Plan: * peak effect for methadone usually around 3-4 hours. much longer half life, usually about 24-36hrs (varies) * monitor respiratory status and apply 02 as needed. Goal is not wakefulness, but proper oxygenation * monitor EKG and electrolytes-keep Mg >2, K >4 * discussed calling poison control for additional monitoring parameters --admitting provider to followup. * hold AM methadone dose. t/w will re-eval in the morning and determine dosing then Total time managing care of this patient today ___50_ minutes. REPLACED BY [facility] Past Medical History Medical History (Updated 07/09/25 @ 11:55 by Thuy Houston DNP) Bipolar II disorder Pulmonary embolism Opioid use disorder Cocaine use disorder PTSD (post-traumatic stress disorder) Social History Social History Household Members: Spouse Housing: House Do you presently have visiting nurse or other home services: No Patient Tobacco Use Status: Current everyday Tobacco user Tobacco use type: Cigarette e-Cigarette/Vaping Use: Never Used Second Hand Smoke Exposure: Yes Advance Directives: No Advance Directives Information Provided: No Do you have a plan to hurt others: No Plan Recently lost weight without trying: No Patient : No service: No Sexual orientation: Straight/Heterosexual
--- OUTSIDE RECORDS SUMMARY | 2025-07-09 15:38 | XMS_ITS ---
Author Organization [facility] iance Address [address] [place] [address] Care Team Providers Care Power Driven Brush Maker Name Role Phone None Unavailable Unavailable Raisa Merritt MD Primary Care Provider [phone] Active Problems Problem Noted Date Diagnosed Date [...]
--- OUTSIDE RECORDS SUMMARY | 2025-07-09 15:38 | XMS_ITS | Encounter Summary ---
Author Organization [facility] iance Address [address] [place] [address] Care Team Providers Care Special Diet Cook Name Role Phone None Unavailable Unavailable Mile Kitchen MD Primary Care Provider [phone] Raisa Merritt MD Primary Care Provider [phone] Encounter Details Date Type Department Care Team (Late st Contact Info) Description 12/02/2021 Telephone [facility] Pharmacy - [facility] [address] [facility] - [address] [place] [address] Danisha Patricio, PharmD [address] [place] [address] Social History Tobacco Use Types Packs/Day Years [...] of Assessment Author No 07/27/2021 2:11 PM Gnena Espinoza RN * (RETIRED) Because of a [...] documented as of this encounter Care Teams Special Diet Cook Relationship Specialty Start Date End Date None PCP - Insurance PCP 06/10/18 Mile Kitchen MD [address] [place] [id number] PCP - General Family Medicine 08/02/21 02/12/24 Raisa Merritt MD [address] [place] [phone] PCP - General Family Medicine 02/13/24 documented as of this encounter
--- OUTSIDE RECORDS SUMMARY | 2025-07-09 15:38 | XMS_ITS | Clinical Summary ---
Author Organization [employer] [facility] iance Address [address] [place] [address] Care Team Providers Care Painting Machine Operator Name Role Phone None Unavailable Unavailable Raisa Merritt MD Primary Care Provider [phone] Allergies No known active allergies Medications methadone (METHADOSE) 40 MG disintegrating tablet Take 100 mg by mouth in the morning. Fills at [facility]. Active Multiple Vitamin (MULTIVITAMIN) tabletIndications :Squamous [...] enlarged lymph node/lump on the anterior neck. terminal supervisor current use of anticoagulant therapy 0 10/04/2021 Overview (10/04/2021): PE 08/02/21 - on Eliquis. 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 Unclear if provoked or unprovoked. Messaged PCP to send e-consult to [facility] to review duration. Due to significant delays [...] Care Team Description 06/12/2025 Travel 05/13/2025 Telephone [facility] - Pharmacotherapy [address] [place] [address] Donna Christensen, PharmD Outreach-anticoagulatio n 04/21/2025 Telephone [facility] [address] [address] Raisa Merritt MD 04/08/2025 Telephone [facility] - Pharmacotherapy [address] [place] [address] Donna Christensen, PharmD Outreach-anticoagulatio n (DOAC Monitoring) from Last 3 Months Immunizations Immunization Administration Dates Next Due Covid-19 Vaccine (Moderna - Full Dose) 1 Hepatitis A Adult 2 dose 01/04/2006 Influenza, [...] 12 MON FOLLOW UP 10/12/2022 (Completed at [facility]) COVID-19 Vaccine (4 - 2024-2 6 season) 2025 11/04/2022, 03/19/2021, 12/10/2020 INFLUENZA VACCINE (#1) 2025 07/10/2008 AWQ Questionnaire 02/03/2026 02/03/2025, 01/05/2025 HEALTH CARE PROXY 02/10/2029 02/11/2024 (Completed at [facility]) TETANUS VACCINE (3 - Td or Tdap) 09/13/2033 09/13/2023, 07/13/2010 RSV OR 60+ (1 - 1-dose 75+ series) 01/23/2039 HEPATITIS A VACCINE (ADULT) Aged Out 01/04/2006 No longer eligible based on patient's age to complete this topic HIV SCREENING Completed 10/28/2021 HEP C SCREEN Completed 11/21/2021, 10/28/2021 PNEUMOCOCCAL VACCINE SERIES 50+ Completed 09/13/2023 PNEUMOCOCCAL VACCINE SERIES Completed 09/13/2023 HPV VACCINE SERIES Aged Out [...] / using tobacco Lifestyle (Healthcare Team Goals) Joselin Barron Procedures Procedure Name Priority Date/Time Associated Diagnosis [...] HEPATITIS C VIRUS GENOTYPE See Comment . [facility] Comment: Specimen has insufficient hepatitis C virus [...] as investigational or for research. Performed at: [address] [id number] Screw Machine Set Up Operator: Grisel Welsh MD, Phone: [phone] 11/21/2021 8:4 2 AM EDT 11/21/2021 9:11 AM EDT us Felton Rodriguez MD LABORATORY Final Result [facility] [address] [place] [address], * HIV Antigen Antibody 5th Gen (10/28/2021 1:19 PM EST) HIVAGAB QUALITATIVE NON-REAC TIVE NONREACTIVE [facility] Comment: This sample is negative for HIV-1 Antibody (Groups M and O), HIV-2 Antibody, and HIV-1 p24 Antigen. No further testing is required. The differentiation tests will be reported as Test Not Performed (TNP). HIV-1 ANTIBODY 5TH GEN TNP 0.00 - 0.99 INDEX [facility] LABORATORY [facility] HIV-2 ANTIBODY 5TH GEN TNP 0.00 - 0.99 INDEX [facility] LABORATORY [facility] HIV-1 ANTIGEN 5TH GEN TNP 0.00 - 0.99 INDEX [facility] LABORATORY [facility] HIV-1 ANTIBODY GEENIUS TNP [facility] LABORATORY [facility] HIV-2 ANTIBODY GEENIUS TNP [facility] HIV RESULT INTERPRETATION TNP [facility] 10/28/2021 1:19 PM EST 10/28/2021 1:28 PM EST Narrative [facility] - 10/31/2021 1:51 PM EST PRIOR TO ORDERING, was verbal consent obtained? (Verbal consent by the patient or designee is REQUIR ED to order this test.)->YES us Felton Rodriguez MD LABORATORY Final Result Performing Organization Address City/State/[facility] Co de Phone Number [address] from Last 3 Months or Most Recently Relevant to Health Maintenance Insurance [facility] [place] [id number] Advance Directives * Full Code (Latest Code Status on File) Date Activated Date Inactivated Comments 07/27/2021 12:33 PM Care Teams Painting Machine Operator Relationship Specialty Start Date End Date None PCP - Insurance PCP 06/10/18 Raisa Merritt MD [address] [place] [address] MEDICINE KARLEY HART [id number] PCP - General Family Medicine 02/13/24
--- OUTSIDE RECORDS SUMMARY | 2025-07-09 15:38 | XMS_ITS | Encounter Summary ---
Author Organization [facility] [facility] iance Address [address] [place] [address] Care Team Providers Care Electric Welder Helper Name Role Phone None Unavailable Unavailable Raisa Merritt MD Primary Care Provider [phone] Encounter Details Date Type Department Care Team (Late st Contact Info) Description 04/21/[address] [place], [place] [phone] Raisa Merritt MD [address] [place] [phone] Social History Tobacco Use Types Packs/Day Years [...] on filedocumented in this encounter Care Teams Electric Welder Helper Relationship Specialty Start Date End Date None PCP - Insurance PCP 06/10/18 Raisa Merritt MD [address] [place] [address], [place] [address] PCP - General Family Medicine 02/13/24 documented as of this encounter
--- OUTSIDE RECORDS SUMMARY | 2025-07-09 15:38 | XMS_ITS | Encounter Summary ---
Author Organization [employer] [facility] iance Address [address] [place] [address] Care Team Providers Care Drafting Layout Worker Name Role Phone None Unavailable Unavailable Frnaklin Weinstein MD Primary Care Provider [phone] Raisa Merritt MD Primary Care Provider Reason for Visit * Reason Onset Date Comments Returned Call 11/30/2021 Encounter Details Date Type Department Care Team (Late st Contact Info) Description 11/30/2021 Telephone [facility] [address] [place] [address], [address] [place], [place] [id number] Caroline Julio, TAYLOR [address] [place] [phone] Returned Call Social History Tobacco Use Types [...] PM EDT Call returned to Jayna @ [facility]. No answer. Message left requesting a call back and clarification If she needs to speak with PCP or Oncologist @ [facility] * Telephone Encounter - Caroline Julio RN - 11/30/2021 3:03 PM EDT ----- Message from Robina Jones sent at 11/29/2021 11:24 AM EDT ----- Regarding: [facility] addictions requesting call for care coordination Contact: [phone] Laurel Wilder [phone], 56 year old, female Calls today: Clinical Questions (NON-SICK CLINICAL QUESTIONS ONLY) Name of person calling [facility] the Addictions Specific nature of request Jayna is requesting a call from someone to coordinate what's going on with the pt and any f/u care that is needed. Please advise, thanks Return phone number [phone] Person calling on behalf of patient: [facility] the Addictions CALL BACK NUMBER: [phone] Patient's language of care: Kuwaiti Patient does not need an sign language interpreter. Patient's PCP: FRANKLIN WEINSTEIN MD documented in [...] documented as of this encounter Care Teams Drafting Layout Worker Relationship Specialty Start Date End Date None PCP - Insurance PCP 06/10/18 Franklin Weinstein MD [address] [place] [id number] PCP - General Family Medicine 08/02/21 02/12/24 Raisa Merritt MD [address] [place] [phone] PCP - General Family Medicine 02/13/24 documented as of this encounter
--- OUTSIDE RECORDS SUMMARY | 2025-07-09 15:39 | XMS_ITS | Clinical Summary ---
Author Organization [facility] (historical information prior to 06/13/2025 only) Address [address] [facility] [place] [address] Care Team Providers Care Kicking Machine Operator Name Role Phone Mile Kitchen MD Primary Care Provider [phone] Medications lidocaine HCL (lidocaine) 2 % viscous [...] patient's age to complete this topic Insurance [facility] MEDICARE A&B Care Teams Kicking Machine Operator Relationship Specialty Start Date End Date Mile Kitchen MD [address] [place] [id number] PCP - General Internal Medicine 01/14/24
--- OUTSIDE RECORDS SUMMARY | 2025-07-09 15:39 | XMS_ITS | Encounter Summary ---
Author Organization [employer] [facility] iance Address [address] [place] [address] Care Team Providers Care Venetian Blind Worker Name Role Phone None Primary Care Provider Unavailabl e None Unavailable Unavailable Mile Kitchen MD Primary Care Provider [phone] Raisa Merritt MD Primary Care Provider [phone] Encounter Details Date Type Department Care Team (Late st Contact Info) Description 08/01/[address], [address] [place] [address] Mariana Alvarado, TAYLOR [address] [address] Social History Tobacco Use Types Packs/Day Years [...] 08/01/2021 7:04 PM EST Called Marinelli from [facility] back and got voicemail. Left message to call clinic back. Will forward to Dr. Kitchen who is seeing patient tomorrow. * Telephone Encounter - Mariana Alvarado RN - 08/01/2021 7:03 PM EST ----- Message from Franc Klein sent at 08/01/2021 4:17 PM EST ----- Regarding: biopsy order Contact: Laurel Wilder [phone], 56 year old, female Calls today: Clinical Questions (NON-SICK CLINICAL QUESTIONS ONLY) Name of person calling aubrey from [facility] Specific nature of request homer is calling to speak to rn regarding patient's biopsy order. Patient has new patient appointment tm Return phone number [phone] Person calling on behalf of patient: aubrey from [facility] Patient's language of care: Georgian Patient does not need an quality officer. Patient's PCP: None documented in this encounter [...] documented as of this encounter Care Teams Venetian Blind Worker Relationship Specialty Start Date End Date None PCP - General 07/02/19 08/01/21 None PCP - Insurance PCP 06/10/18 Mile Kitchen MD [address] [place] [id number] PCP - General Family Medicine 08/02/21 02/12/24 Raisa Merritt MD [address] [place] [phone] PCP - General Family Medicine 02/13/24 documented as of this encounter
--- OUTSIDE RECORDS SUMMARY | 2025-07-09 15:39 | XMS_ITS | Clinical Summary ---
Author Organization Danisha Valera [facility] Address [address] [place] [address] Care Team Providers Care R D Engineer Name Role Phone Mirella Bobby MD Primary Care Provider [phone] Allergies No known active allergies Medications apixaban (ELIQUIS) 5 mg Tab Take 1 tablet (5 mg total) by mouth every morning & every evening. Active methadone (DOLOPHINE) 5 mg/5 mL solutionIndicat ions:opioid use disorder Take 50 mL (50 mg total) by mouth daily. Per [facility] methadone clinic ([phone]) : Prescribed dose is 100mg daily. But [...] EDT - 07/01/2025 3:05 PM EDT Emergency [facility] [address] [place] [address] Sahil Meza MD Quinn, Austin, MD Manice, Nicholas, MD Ayandeh, Armon, MD Post traumatic stress disorder (PTSD) [F43.10] (Primary Dx); MDD (major depressive disorder), recurrent severe, without psychosis ([facility]) [F33.2]; Opioid use disorder, severe ([facility]) [F11.20]; Suicidal ideation Discharge Disposition: Admitted [...] drink = 0.6 oz pur e alcohol) [facility] Utilities Answer Date Recorded In the past 12 months has [employer], gas, oil, or water [employer] threatened to shut off services in your [...] any time in the past 12 m [facility], were you homeless or living in a mcfp (including now)? No 02/02/2024 Food Insecurity Answer [...] EDT) 6-Aceytlmorphine Screen, Urine Negative Negative CROWELL [id number] 06/30/2025 7:23 PM EDT [facility] Comment: 6-acetylmorphine cutoff is 10 ng/mL 6-acetylmorphine Add on order [id number] Opiates and Oxycodone, Urine, Confirmation, if confirmation desired. Results should be used for medical purposes only and not for any legal or employment evaluative purposes. Urine URINE SPECIMEN / Unknown Collection / Unknown 06/30/2025 7:03 PM EDT 06/30/2025 7:06 PM EDT Sahil Meza MD URINE ORDERABLES Final Result [address] [address], [place] [phone] * (ABNORMAL) Drug Screen, Urine (06/30/2025 7:03 PM EDT) Amphetamines Screen, Urine Negative Negative 06/30/2025 7:25 PM EDT [facility] Barbiturates Screen, Urine Negative Negative 06/30/2025 7:25 PM EDT [facility] Benzodiazepine Screen, Urine Positive(A) Negative 06/30/2025 7:25 PM EDT [facility] Buprenorphine Screen, Urine Negative Negative 06/30/2025 7:25 PM EDT [facility] Cannabinoids Screen, Urine Negative Negative 06/30/2025 7:25 PM EDT [facility] Cocaine Metabolite Screen, Urine Positive(A) Negative 06/30/2025 7:25 PM EDT [facility] Methadone Screen, Urine Negative Negative 06/30/2025 7:25 PM EDT [facility] Methamphetamine, Urine Negative Negative 06/30/2025 7:25 PM EDT [facility] Opiates Screen, Urine Negative Negative 06/30/2025 7:25 PM EDT [facility] Oxycodone Screen, Urine Negative Negative 06/30/2025 7:25 PM EDT [facility] TCA, Urine Negative Negative 06/30/2025 7:25 PM T [facility] Creatinine, Gregory Urine 73.7 No Established Reference Range mg/dL CROWELL [id number] 06/30/2025 7:25 PM EDT [facility] Fentanyl Screen, Urine Positive(A) Negative CROWELL [id number] 06/30/2025 7:25 PM EDT [facility] Tramadol Screen, Urine Negative Negative CROWELL [id number] 06/30/2025 7:25 PM T [facility] 6-Aceytlmorphine Screen, Urine Negative Negative CROWELL [id number] 06/30/2025 7:25 PM [facility] Phencyclidine Screen, Urine Negative Negative 06/30/2025 7:25 PM T [facility] Urine URINE SPECIMEN / Unknown Collection / Unknown 06/30/2025 7:03 PM EDT 06/30/2025 7:06 PM EDT [facility] LABORATORY - 06/30/2025 7:25 PM EDT Specimen [...] absinence. Thresholds are established by the test insurance counsel. Drug levels below thresholds will be reported as negative. This is an antibody-antigen methods screening test and has the potential for false positive results caused by other drugs, medications and supplements with similar structures, if results are discordant clinically. us Sahil Meza MD URINE ORDERABLES Final Result Performing Organization Address [facility] Co de Phone Number [facility] [address] [place] [address], [place] [phone] * Tramadol Screen, Urine (06/30/2025 7:03 PM EDT) Tramadol Screen, Urine Negative Negative CROWELL [id number] 06/30/2025 7:23 PM EDT [facility] Comment: Tramadol cutoff is 200 ng/mL Tramadol. Add-on order [id number] Tramadol Confirmation, Urine, if confirmation desired. Results should be used for medical purposes only and not for any legal or employment evaluative purposes. Urine URINE SPECIMEN / Unknown Collection / Unknown 06/30/2025 7:03 PM EDT 06/30/2025 7:06 PM EDT us Sahil Meza MD URINE ORDERABLES Final Result Performing Organization Address [facility] Phone Number [address] [address], [place] [phone] * (ABNORMAL) Fentanyl Screen, Urine (06/30/2025 7:03 PM EDT) Fentanyl Screen, Urine Positive(A ) Negative CROWELL [id number] 06/30/2025 7:23 PM EDT [facility] Urine URINE SPECIMEN / Unknown Collection / Unknown 06/30/2025 7:03 PM EDT 06/30/2025 7:06 PM EDT us Sahil Meza MD URINE ORDERABLES Final Result Performing Organization Address [facility] Co de Phone Number [address] [address], [place] [phone] * (ABNORMAL) Urinalysis with Reflex to Urine Culture (06/30/2025 7:03 PM EDT) Color, Urine Yellow Mallory, Yellow, Dark Yellow 06/30/2025 7:27 PM [facility] Clarity, Urine Clear Clear 06/30/2025 7:27 PM [facility] pH, Urine 7.5 5.0 - 9.0 06/30/2025 7:27 PM [facility] Protein, Urine Negative Negative 06/30/2025 7:27 PM [facility] Glucose, Urine Negative Negative, 100 mg/dL 06/30/2025 7:27 PM [facility] Ketone, Urine Negative Negative 06/30/2025 7:27 PM [facility] Bilirubin, Urine Negative Negative 06/30/2025 7:27 PM [facility] Urobilinogen, Urine 1.0 mg/dL 0.2 mg/dL, 1.0 mg/dL 06/30/2025 7:27 PM [facility] Blood, Urine Trace(A) Negative 06/30/2025 7:27 PM [facility] Leukocyte Esterase, Urine Trace(A) Negative 06/30/2025 7:27 PM [facility] Nitrite, Urine Negative Negative 06/30/2025 7:27 PM [facility] Specific Onset, Urine 1.017 1.005 - 1.035 06/30/2025 7:27 PM [facility] White Blood Cells, Urine <2 <=4 /hpf 06/30/2025 7:27 PM [facility] Red Blood Cell, Urine 0-2 <=2 cells/HPF 06/30/2025 7:27 PM [facility] Bacteria Urine None Seen None Seen 06/30/2025 7:27 PM [facility] Squamous Epithelial Cells 3-5/HPF <=5/HPF /HPF 06/30/2025 7:27 PM [facility] Hyaline Cast 0-2 0 - 2 cast/LPF 06/30/2025 7:27 PM [facility] Urine MID-STREAM URINE SPECIMEN / Unknown Collection / Unknown 06/30/2025 7:03 PM EDT 06/30/2025 7:06 PM EDT Sahil Meza MD URINE ORDERABLES Final Result [facility] [address] [place] [address], [place] [phone] * XR Chest 1 Vw Portable (06/30/2025 [...] Exposure to Ionizing Radiation was submitted to [employer] Dose Index Registry. Measure #436 Adaptive Iterative [...] Exposure to Ionizing Radiation was submitted to [employer] Dose Index Registry. Measure #436 Adaptive Iterative [...] Troponin (once) (06/30/2025 12:31 PM EDT) Pathologist [facility] Troponin I <0.01 <0.08 ng/mL [employer] [id number] 06/30/2025 1:15 PM EDT [facility] Comment: The troponin upper reference value was set at 0.08 ng/mL by pat with the associated automobile bumper straightener after concurrent and retrospective clinical review. New [...] or more on a subsequent troponin specimen. [place] EA, et al. 2014 AGA/ACC NSTE-ACS Guideline [...] MD LAB BLOOD ORDERABLES Final Resul t [facility] [address] [place] [address], [place] [phone] * (ABNORMAL) CBC and Differential (06/30/2025 12:31 PM EDT) WBC 6.45 4.00 - 11.00 K/uL 06/30/2025 12:42 PM EDT [facility] RBC 4.40 4.00 - 5.20 M/uL 06/30/2025 12:42 PM EDT [facility] Hemoglobin 9.0(L) 12.0 - 15.0 g/dL 06/30/2025 12:42 PM EDT [facility] Hematocrit 29.6(L) 36.0 - 45.0 % 06/30/2025 12:42 PM EDT [facility] MCH 20.5(L) 23.0 - 37.0 pg 06/30/2025 12:42 PM EDT [facility] MCHC 30.4 29.0 - 38.0 g/dL 06/30/2025 12:42 PM EDT [facility] MCV 67(L) 82 - 98 fL 06/30/2025 12:42 PM EDT [facility] RDW 15.4(H) 11.5 - 15.0 % 06/30/2025 12:42 PM EDT [facility] Platelet Count 292 150 - 450 K/uL 06/30/2025 12:42 PM EDT [facility] MPV 8.6 8.0 - 14.0 fL 06/30/2025 12:42 PM EDT [facility] Neutrophil 85.5 % 06/30/2025 12:42 PM EDT [facility] Lymphocyte 8.8 % 06/30/2025 12:42 PM EDT [facility] Monocyte 4.2 % 06/30/2025 12:42 PM EDT [facility] Eosinophil 0.5 % 06/30/2025 12:42 PM EDT [facility] Basophil 0.5 % 06/30/2025 12:42 PM EDT [facility] Immature Granulocyte (Vancleve, Myelo, Promyelocyte) 0.5 % 06/30/2025 12:42 PM EDT [facility] Absolute Neutrophil Count 5.52 1.50 - 7.70 K/uL 06/30/2025 12:42 PM EDT [facility] Absolute Immature Granulocyte (Vancleve, Myelo, Promyelocyte) 0.03 0.00 - 0.09 K/uL 06/30/2025 12:42 PM EDT [facility] Absolute Lymphocyte Count 0.57(L) 1.00 - 5.00 K/uL 06/30/2025 12:42 PM EDT [facility] Absolute Monocyte Count 0.27 0.10 - 1.00 K/uL 06/30/2025 12:42 PM EDT [facility] Absolute Eosinophil Count 0.03 0.00 - 0.70 K/uL 06/30/2025 12:42 PM EDT [facility] Absolute Basophil Count 0.03 0.00 - 0.20 K/uL 06/30/2025 12:42 PM EDT [facility] Blood PERIPHERAL BLOOD SPECIMEN / Unknown Venipuncture / Unknown 06/30/2025 12:31 PM EDT 06/30/2025 12:33 PM EDT us Sahil Meza MD LAB BLOOD ORDERABLES Final Resul t [address] [address], * BNP (B-Type Natriuretic Peptide) (06/30/2025 12:31 PM EDT) Beta-Natriureti c Peptide (BNP) <10 <120 pg/mL CROWELL [id number] 06/30/2025 3:10 PM EDT [facility] Comment:BNP may be falsely e levated in patients on the medication Entresto. For these patients, NT-proBNP, [id number], will more reliably reflect the status of therapy. Blood PERIPHERAL BLOOD SPECIMEN / Unknown Venipuncture / Unknown 06/30/2025 12:31 PM EDT 06/30/2025 12:33 PM EDT us Sahil Meza MD LAB BLOOD ORDERABLES Final Resul t [facility] [address] [place] [address], [place] [phone] * (ABNORMAL) Toxicology Screen, Blood (06/30/2025 12:31 PM EDT) [facility] Acetaminophen Result,Blood <3(L) Therapuetic Range 10-30 ug/mL [facility] [id number] 06/30/2025 1:15 PM EDT [facility] Alcohol <10 <10 mg/dL [facility] [id number] 06/30/2025 1:15 PM EDT [facility] Salicylate Level, Blood <5(L) 15 - <30 mg/dL [place] [id number] 06/30/2025 1:15 PM EDT [facility] Blood PERIPHERAL BLOOD SPECIMEN / Unknown Venipuncture / Unknown 06/30/2025 12:31 PM EDT 06/30/2025 12:33 PM EDT us Sahil Meza MD LAB BLOOD ORDERABLES Final Resul t [facility] [address] [place] [address], [place] [phone] * Gold Top (06/30/2025 12:31 PM EDT) [facility] Gold Top Tube Received 06/30/2025 2:02 PM EDT [facility] Blood PERIPHERAL BLOOD SPECIMEN / Unknown Venipuncture / Unknown 06/30/2025 12:31 PM EDT 06/30/2025 12:33 PM EDT us Sahil Meza MD LAB BLOOD ORDERABLES Final Resul t Performing Organization Address City/[facility]/ZIP Co de Phone Number [facility] [address] [place] [address], [place] [phone] * Lavender Top (06/30/2025 12:31 PM EDT) Lav Top Tube Received 06/30/2025 2:02 PM EDT [facility] Blood PERIPHERAL BLOOD SPECIMEN / Unknown Venipuncture / Unknown 06/30/2025 12:31 PM EDT 06/30/2025 12:33 PM EDT us Sahil Meza MD LAB BLOOD ORDERABLES Final Resul t [facility] [address] [place] [address], [place] [phone] * Mint Green Top (06/30/2025 12:31 PM EDT) PST Tube Received 06/30/2025 2:02 PM EDT [facility] Blood PERIPHERAL BLOOD SPECIMEN / Unknown Venipuncture / Unknown 06/30/2025 12:31 PM EDT 06/30/2025 12:32 PM EDT us Sahil Meza MD LAB BLOOD ORDERABLES Final Resul t Performing Organization Address City/[facility]/ZIP Co de Phone Number [address] [address], [place] [phone] * Red Top (06/30/2025 12:31 PM EDT) Red Top Tube Received 06/30/2025 2:02 PM EDT [facility] Blood PERIPHERAL BLOOD SPECIMEN / Unknown Venipuncture / Unknown 06/30/2025 12:31 PM EDT 06/30/2025 12:33 PM EDT us Sahil Meza MD LAB BLOOD ORDERABLES Final Resul t [address] [address], [place] [phone] * Blue Top (06/30/2025 12:31 PM EDT) Pathologist [facility] Blue Top Tube Received 06/30/2025 2:02 PM EDT [facility] Blood PERIPHERAL BLOOD SPECIMEN / Unknown Venipuncture / Unknown 06/30/2025 12:31 PM EDT 06/30/2025 12:33 PM EDT us Sahil Meza MD LAB BLOOD ORDERABLES Final Resul t Performing Organization Address [facility] de Phone Number [address] [address], * Magnesium (06/30/2025 12:31 PM EDT) Pathologist [facility] Magnesium, Blood 1.8 1.8 - 2.4 mg/dL [address] 06/30/2025 1:13 PM EDT [facility] Blood PERIPHERAL BLOOD SPECIMEN / Unknown Venipuncture / Unknown 06/30/2025 12:31 PM EDT 06/30/2025 12:32 PM EDT us Sahil Meza MD LAB BLOOD ORDERABLES Final Resul t Performing Organization Address [facility] Phone Number [address] [address], * (ABNORMAL) Comprehensive Metabolic Panel (06/30/2025 12:31 PM EDT) [facility] Sodium 138 134 - 144 mmol/L [address] 06/30/2025 1:13 PM EDT [facility] Potassium 3.5 3.2 - 5.1 mmol/L [address] 06/30/2025 1:13 PM EDT [facility] Chloride 101 97 - 109 mmol/L [place] [id number] 06/30/2025 1:13 PM EDT [facility] Total CO2/Bicarbonate 28 20 - 32 mmol/L [place] [id number] 06/30/2025 1:13 PM EDT [facility] Anion Gap 9 5 - 15 mmol/L [place] [id number] 06/30/2025 1:13 PM EDT [facility] Anion Gap [place] [id number] 06/30/2025 1:13 PM EDT [facility] BUN 13 7 - 20 mg/dL [address] 06/30/2025 1:13 PM EDT [facility] Creatinine, Blood 0.71 0.60 - 1.10 mg/dL [address] 06/30/2025 1:13 PM EDT [facility] Glucose, Blood 86 70 - 110 mg/dL [address] 06/30/2025 1:13 PM EDT [facility] Calcium 8.8 8.5 - 10.5 mg/dL [address] 06/30/2025 1:13 PM EDT [facility] Total Protein 8.2 6.1 - 8.2 g/dL [address] 06/30/2025 1:13 PM EDT [facility] Albumin, Blood 3.8 3.4 - 5.0 g/dL [address] 06/30/2025 1:13 PM EDT [facility] Globulin Result 4.4(H) 2.0 - 4.0 g/dL [address] 06/30/2025 1:13 PM EDT [facility] AST (SGOT) 18 15 - 37 U/L [address] 06/30/2025 1:13 PM EDT [facility] ALT (SGPT) 10 0 - 55 U/L [address] 06/30/2025 1:13 PM EDT [facility] Alkaline Phosphatase 64 40 - 150 U/L [address] 06/30/2025 1:13 PM EDT [facility] Total Bilirubin 0.9 0.2 - 1.2 mg/dL [address] 06/30/2025 1:13 PM EDT [facility] Estimated GFR(CKD-EPI) 97 >=60 mL/min/BSA [address] 06/30/2025 [facility] Blood PERIPHERAL BLOOD SPECIMEN / Unknown Venipuncture / Unknown 06/30/2025 12:31 PM EDT 06/30/2025 12:32 PM EDT us Sahil Meza MD LAB BLOOD ORDERABLES Final Resul t [address] [place] [address], [place] [phone] * ECG 12 lead, to be obtained, chest pain (06/30/2025 11:38 AM EDT) Ventricular Heart Rate 59 BPM EKG WIN QRSD Interval 100 ms EKG WIN QT Interval 384 ms EKG WIN QTC Interval 380 ms EKG WIN R Landers 47 degrees EKG WIN T Wave Landers 70 degrees EKG WIN 06/30/2025 11:3 8 [...] Sahil Meza MD ECG ORDERABLES Final Result [facility] [address] [place] [address] from Last 3 Months Insurance [facility] Advance Directives * Full Code (Latest Code Status on File) Date Activated Date Inactivated Comments 02/02/2024 10:10 AM 06/30/2025 10:25 AM Care Teams R D Engineer Relationship Specialty Start Date End Date Mirella Bobby MD [address] [place] [address] PCP - General Internal Medicine 02/02/24
--- OUTSIDE RECORDS SUMMARY | 2025-07-09 15:39 | XMS_ITS | Encounter Summary ---
Author Organization [employer] [facility] iance Address [address] [place] [address] Care Team Providers Care Cloth Printing Back Tender Name Role Phone None Unavailable Unavailable Raisa Merritt MD Primary Care Provider [phone] Reason for Visit * Reason Onset Date Comments Durable Medical Equipment (Dme) 04/16/2024 Ensure Encounter Details Date Type Department Care Team (Late st Contact Info) Description 04/16/[address] [address] Raisa Merritt MD [address] [place] [phone] Durable Medical Equipment (Dme) (Ensure) Social History [...] the letters tab and scan back into vice president media relations and route to the dme class. I [...] on filedocumented in this encounter Care Teams Cloth Printing Back Tender Relationship Specialty Start Date End Date None PCP - Insurance PCP 06/10/18 Raisa Merritt MD [address] [place] [address], [place] [address] PCP - General Family Medicine 02/13/24 documented as of this encounter
--- OUTSIDE RECORDS SUMMARY | 2025-07-09 15:39 | XMS_ITS | Encounter Summary ---
Author Organization [facility] (historical information prior to 06/13/2025 only) Address [address] [place] [address] Care Team Providers Care Stunt Woman Name Role Phone Mile Kitchen MD Primary Care Provider Encounter Details Date Type Department Care Team (Late st Contact Info) Description 11/18/2021 Ancillary Orders Outside Imaging Facility Provider, Radiology Outside Exam, [address] [place] [address] Social History Tobacco Use Types Packs/Day [...] on filedocumented in this encounter Care Teams Stunt Woman Relationship Specialty Start Date End Date Mile Kitchen MD [address] [place] [address] PCP - General Internal Medicine 01/14/24 documented as of this encounter
--- OUTSIDE RECORDS SUMMARY | 2025-07-09 15:39 | XMS_ITS | Encounter Summary ---
Author Organization [employer] [facility] iance Address [address] [place] [address] Care Team Providers Care Bag Valver Name Role Phone None Unavailable Unavailable Mile Kitchen MD Primary Care Provider [phone] Raisa Merritt MD Primary Care Provider [phone] Encounter Details Date Type Department Care Team (Late st Contact Info) Description 10/19/2021 Telephone [facility] Interventional Radiology - [facility] [address] [place], [place] [id number] Darcie Sparks RN Social History Tobacco Use [...] documented as of this encounter Care Teams Bag Valver Relationship Specialty Start Date End Date None PCP - Insurance PCP 06/10/18 Mile Kitchen MD [address] [place] [address] PCP - General Family Medicine 08/02/21 02/12/24 Raisa Merritt MD [address] [place] [address] PCP - General Family Medicine 02/13/24 documented as of this encounter
--- OUTSIDE RECORDS SUMMARY | 2025-07-09 15:39 | XMS_ITS | Encounter Summary ---
Author Organization [facility] (historical information prior to 06/13/2025 only) Address [address] [place] [address] Care Team Providers Care Service Dismantler Name Role Phone Mile Kitchen MD Primary Care Provider [phone] Encounter Details Date Type Department Care Team (Late st Contact Info) Description 12/06/2021 Lab Requisition [facility] Main Lab [address] [place] [address] Liban Garcia MD [address] [place] [address] Social History Tobacco Use Types Packs/Day Years [...] 12:19 PM EST) Case Report Consultation Case: [id number] Authorizing Provider: Liban Garcia MD Collected: 10/20/2021 12:19 PM Ordering Location: [facility] Main Lab Received: 12/06/2021 12:32 PM Pathologist: Madeline Arias MD Specimen: Lymph Node, Right, Cervical, Biopsy, core biopsies 8:54 AM EDT [facility] FINAL ANATOMIC DIAGNOSIS [facility]. [facility] [place] [address]: Lymph node (right neck mass), core needle biopsies (22:[id number] A; 10/20/2021): - Metastatic squamous cell carcinoma, focally keratinizing. - Immunohistochemistry performed at outside institution demonstrates the following staining profile in lesional cells (reviewed): POSITIVE: p40, p16 NEGATIVE: CK7, TTF-1 - By report: HPV, Low Risk 6/11: NEGATIVE HPV, High Risk 16/18: POSITIVE HPV, High Risk 31/33: NEGATIVE 2 8:54 AM EDT [facility] Clinical History Neck mass 2 8:54 AM EDT [facility] Gross Description A. Lymph Node, Right, Cervical, Biopsy. Received from [facility], Dept of Pathology, [facility] [place] [address], are twelve (12) glass slides labeled 22:[id number] [...] of . MM 2 8:54 AM EDT [facility] Embedded Images 2 8:54 AM EDT [facility] Tissue (Lymph Node, Right, Cervical, Biopsy) 10/20/2021 12:19 PM EST 12/06/2021 12:32 PM EDT us Liban Garcia MD LAB PATHOLOGY/CYTOLOGY ORDERABLE S Final Result [facility] [address] [place] [address], [place] [phone] documented in this encounter Visit Diagnoses Not on filedocumented in this encounter Care Teams Service Dismantler Relationship Specialty Start Date End Date Mile Kitchen MD [address] [place] [address] PCP - General Internal Medicine 01/14/24 documented as of this encounter
--- OUTSIDE RECORDS SUMMARY | 2025-07-09 15:39 | XMS_ITS | Encounter Summary ---
Author Organization [employer] [facility] iance Address [address] [place] [address] Care Team Providers Care News Broadcaster Name Role Phone None Unavailable Unavailable Raisa Merritt MD Primary Care Provider [phone] Reason for Visit * Reason Onset Date Comments Durable Medical Equipment (Dme) 04/17/2024 [facility] Encounter Details Date Type Department Care Team (Late st Contact Info) Description 04/17/[address] [address] Raisa Merritt MD [address] [place] [phone] Durable Medical Equipment (Dme) (SWO CCA) Social [...] EDT Request for dme items received from [facility] and scanned into ocean transportation intermediary under ???SWO CCA?? . Please print and put in folders to be signed by PCP & faxed to [phone] Please make sure to fill in requested [...] on filedocumented in this encounter Care Teams News Broadcaster Relationship Specialty Start Date End Date None PCP - Insurance PCP 06/10/18 Raisa Merritt MD [address] [place] [address] PCP - General Family Medicine 02/13/24 documented as of this encounter
--- OUTSIDE RECORDS SUMMARY | 2025-07-09 15:39 | XMS_ITS | Encounter Summary ---
Author Organization [facility] (historical information prior to 06/13/2025 only) Address [address] [facility] [place] [address] Care Team Providers Care Lpn Name Role Phone Mile Kitchen MD Primary Care Provider [phone] Reason for Referral * Diagnostic Imaging (Routine) - Closed Specialty Diagnoses / Procedures Referred By Verónica byrne Referred To Contact Procedures PET/CT Outside Exam CT Outside Exam Provider, Radiology Outside Exam, [address] [place] [address] Phone: tel: Referral ID Status Reason Start Date Expiration Date Visits Re quested Visits Authorized [id number] Closed 11/18/2021 11/18/2022 1 1 Encounter Details Date Type Department Care Team (Late st Contact Info) Description 12/21/2021 Ancillary Orders Outside Imaging Facility Provider, Radiology Outside MD Sofia [address] [place] [address] Social History Tobacco Use Types Packs/Day [...] Narrative 11/18/2021 7:34 AM EST Please see [employer] PACS for outside imaging and/or report. us Radiology Outside Exam Provider MD [facility] CT PROCED URES Edited Result - Final documented in this encounter Visit Diagnoses Not on filedocumented in this encounter Care Teams Lpn Relationship Specialty Start Date End Date Mile Kitchen MD [address] [place] [address] PCP - General Internal Medicine 01/14/24 documented as of this encounter
--- OUTSIDE RECORDS SUMMARY | 2025-07-09 15:39 | XMS_ITS | Encounter Summary ---
Author Organization [employer] [facility] iance Address [address] [place] [address] Care Team Providers Care Export Administrator Name Role Phone None Unavailable Unavailable Raisa Merritt MD Primary Care Provider [phone] Reason for Visit * Reason Onset Date Comments Durable Medical Equipment (Dme) 02/05/2025 ENSURE Encounter Details Date Type Department Care Team (Late st Contact Info) Description 02/05/[address] [address] Raisa Merritt MD [address] [place] [phone] Durable Medical Equipment (Dme) (ENSURE) Social History [...] guidance: See below Raisa Merritt MD to [facility] Vantos Pool (Selected Message) AT 02/13/25 3:24 PM [...] on filedocumented in this encounter Care Teams Export Administrator Relationship Specialty Start Date End Date None PCP - Insurance PCP 06/10/18 Raisa Merritt MD [address] [place] [address] [place] [address] PCP - General Family Medicine 02/13/24 documented as of this encounter
--- OUTSIDE RECORDS SUMMARY | 2025-07-09 15:39 | XMS_ITS | Encounter Summary ---
Author Organization [facility] iance Address [address] [place] [address] Care Team Providers Care Pediatric Assistant Name Role Phone None Unavailable Unavailable Mile Kitchen MD Primary Care Provider [phone] Raisa Merritt MD Primary Care Provider [phone] Reason for Visit * Reason Onset Date Comments Hem/Onc 11/16/2021 New Start Carbop latin/Paclitaxel Encounter Details Date Type Department Care Team (Late st Contact Info) Description 11/16/2021 Telephone [facility] - [facility] [address] [facility] - 2nd Floor [place], [place] [phone] Yoselin Brown, PharmD Hem/Onc (New Start Carboplatin/Paclitaxel) [...] Brown, PharmD - 11/16/2021 1:49 PM EST [facility] for Carboplatin/Paclitaxel Provider Recommendations (Directed mostly to PCP): 1. 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 Orders are placed for Hep C PCR. Pls let specialty pharmacy team know if you would like us to help her schedule a lab appt. ??? Consultation Completed with Patient or Authorized Individual: Yes ??? Manager Review used: No ??? Diagnosis/Stage: Squamous cell carcinoma [...] o Call Center (for questions or concerns): [phone] or [phone] o Physician On-Call: [phone] o Specialty Pharmacy Number: [phone], Option 2 documented in this encounter Plan [...] documented as of this encounter Care Teams Pediatric Assistant Relationship Specialty Start Date End Date None PCP - Insurance PCP 06/10/18 Mile Kitchen MD [address] [place] [address] PCP - General Family Medicine 08/02/21 02/12/24 Raisa Merritt MD [address] [place] [address] PCP - General Family Medicine 02/13/24 documented as of this encounter
--- OUTSIDE RECORDS SUMMARY | 2025-07-09 15:39 | XMS_ITS | Clinical Summary ---
Author Organization [facility] r Address [address] [place] [address] Phone Care Team Providers Care Privacy Attorney Name Role Phone Unavailable Primary Care Provider [...] Hepatitis C Antibody Lifetim e Screening 1964 LIPID PANEL 1964 THRIVE SCREENING 1964 Oral Health Screen 1964 HEIP Disability Screen 01/23/1969 BEHAVIORAL HEALTH SCREEN 1976 Psych Substance Use Screen 1976 DTAP/TDAP VACCINE (1 - Tdap) 01/23/1983 Cervical Cancer Screening 01/23/1985 Colposcopy 01/23/1985 LEEP 01/23/1985 PAP SMEAR 01/23/1985 Pap + HPV [...]
--- OUTSIDE RECORDS SUMMARY | 2025-07-09 15:39 | XMS_ITS | Encounter Summary ---
Author Organization [employer] [facility] iance Address [address] [place] [address] Care Team Providers Care Resident Assistant Cna Name Role Phone None Unavailable Unavailable Mile Kitchen MD Primary Care Provider [phone] Raisa Merritt MD Primary Care Provider [phone] Encounter Details Date Type Department Care Team (Late st Contact Info) Description 02/20/2023 Telephone [facility] [address] [place] [address], [address] [place], [place] [phone] Ellen Edmond [place] Social History Tobacco Use Types Packs/Day Years [...] - 02/20/2023 11:46 AM EDT Laurel Wilder [id number], 58 year old, female Calls today: Clinical Questions (NON-SICK CLINICAL QUESTIONS ONLY) Name of person calling [email or web address] Specific nature of request an update for medical supply order that was faxed over Return phone number [phone] Person calling on behalf of patient: [email or web address] CALL BACK NUMBER: [phone] Best time to call back: odell Cell phone: Other phone: Patient's language of care: Australian Patient does not need an security installer. Patient's PCP: Mile Kitchen MD Primary Senior Living Site: [facility] documented in this encounter Plan of Treatment Not on file documented as of this encounter Goals Goal Patient Goal Type Associated Problems Recent Progress Patient-Stated? Author Quit smoking / using tobacco Lifestyle (Healthcare Team Goals) No Joselin Romero documented as of this encounter Visit Diagnoses Not on filedocumented in this encounter Care Teams Resident Assistant Cna Relationship Specialty Start Date End Date None PCP - Insurance PCP 06/10/18 Mile Kitchen MD [address] [place] [address] PCP - General Family Medicine 08/02/21 02/12/24 Raisa Merritt MD [address] [place] [address] PCP - General Family Medicine 02/13/24 documented as of this encounter
--- OUTSIDE RECORDS SUMMARY | 2025-07-09 15:39 | XMS_ITS | Encounter Summary ---
Author Organization [employer] [facility] ianve Address [address] [place] [address] Care Team Providers Care Crime Scene Examiner Name Role Phone None Unavailable Unavailable Mile Kitchen MD Primary Care Provider [phone] Raisa Merritt MD Primary Care Provider [phone] Reason for Visit * Reason Onset Date Comments Follow Up 08/03/2021 Encounter Details Date Type Department Care Team (Late st Contact Info) Description 08/03/2021 Telephone [facility] [address] [place] [address], [address] [place], [place] [phone] Caroline Julio, TAYLOR [address] [place] [address] Follow Up Social History Tobacco Use Types [...] CCA Care Coordination - Tomorrow Laurel Wilder [phone], 56 year old, female ?? Calls today: Clinical Questions (NON-SICK CLINICAL QUESTIONS ONLY) Name of person calling aubrey from [facility] Specific nature of request Returning call from [facility] - asking to get a call tomorrow to review the visit today. Thank you Return phone number [phone] Person calling on behalf of patient: aubrey from [facility] ? Patient's language of care: Gibraltarian ?? Patient does not need an loan services professional. ?? Patient's PCP: None ?? documented in [...] documented as of this encounter Care Teams Crime Scene Examiner Relationship Specialty Start Date End Date None PCP - Insurance PCP 06/10/18 Mile Kitchen MD [address] [place] [address] PCP - General Family Medicine 08/02/21 02/12/24 Raisa Merritt MD [address] [place] [address] PCP - General Family Medicine 02/13/24 documented as of this encounter
--- OUTSIDE RECORDS SUMMARY | 2025-07-09 15:39 | XMS_ITS | Encounter Summary ---
Author Organization [facility] (historical information prior to 06/13/2025 only) Address [address] [place] [address] Care Team Providers Care Audit Clerk Name Role Phone Mile Kitchen MD Primary Care Provider [phone] Encounter Details Date Type Department Care Team (Late st Contact Info) Description 12/16/2021 Documentation 2nd Floor [facility] [address] [facility] Nutrition [address] [facility] 2nd floor room [address] [place] [address] Social History Tobacco Use [...] on filedocumented in this encounter Care Teams Audit Clerk Relationship Specialty Start Date End Date Mile Kitchen MD [address] [place] [address] PCP - General Internal Medicine 01/14/24 documented as of this encounter
--- OUTSIDE RECORDS SUMMARY | 2025-07-09 15:39 | XMS_ITS | Encounter Summary ---
Author Organization [facility] (historical information prior to 06/13/2025 only) Address [address] [place] [address] Care Team Providers Care Licensed Nuclear Control Room Operator Name Role Phone Miel Kitchen MD Primary Care Provider Reason for Referral * Diagnostic Imaging (Routine) - Closed Specialty Diagnoses / Procedures Referred By Verónica byrne Referred To Contact Procedures Ultrasound Outside Exam Provider Radiology Lyn Black MD [address] [place] [address] Phone: tel: Referral ID Status Reason Start Date Expiration Date Visits Re quested Visits Authorized [id number] Closed 01/16/2022 01/16/2023 1 1 * Diagnostic Imaging (Routine) - Closed Specialty Diagnoses / Procedures Referred By Verónica byrne Referred To Contact Procedures CT Outside Exam Provider Radiology Lyn Black MD [address] [place] [address] Phone: tel: Referral ID Status Reason Start Date Expiration Date Visits Re quested Visits Authorized [id number] Closed 01/16/2022 01/16/2023 1 1 Encounter Details Date Type Department Care Team (Late st Contact Info) Description 01/16/2022 Ancillary Orders [facility] X-ray [address] [place] [address] Provider Radiology Lyn Black MD [address] [place] [address] Social History Tobacco Use Types Packs/Day [...] PROCED URES Final Result Performing Organization Address [facility] Co de Phone Number IMAGING * CT Outside Exam (10/12/2021 1:50 PM EST) Narrative IMAGING - 01/16/2022 1:26 PM EDT Please see [employer] PACS for outside imaging and/or report. us Radiology Outside Exam Provider MD [facility] CT PROCED URES Final Result Performing Organization Address [facility] Co de Phone Number IMAGING documented in this encounter Visit Diagnoses Not on filedocumented in this encounter Care Teams Licensed Nuclear Control Room Operator Relationship Specialty Start Date End Date Mile Kitchen MD [address] [place] [address] PCP - General Internal Medicine 01/14/24 documented as of this encounter
--- OUTSIDE RECORDS SUMMARY | 2025-07-09 15:39 | XMS_ITS | Encounter Summary ---
Author Organization [facility] (historical information prior to 06/13/2025 only) Address [address] [place] [address] Care Team Providers Care Employment Consultant Name Role Phone Mile Kitchen MD Primary Care Provider [phone] Encounter Details Date Type Department Care Team (Late st Contact Info) Description 11/18/2021 Ancillary Orders [facility] MRI [address] [place] [phone] Provider, Radiology Outside Exam, [address] [place] [address] Social History Tobacco Use Types Packs/Day [...] on filedocumented in this encounter Care Teams Employment Consultant Relationship Specialty Start Date End Date Mile Kitchen MD [address] [place] [address] PCP - General Internal Medicine 01/14/24 documented as of this encounter
--- OUTSIDE RECORDS SUMMARY | 2025-07-09 15:39 | XMS_ITS | Encounter Summary ---
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 Dictated: 05/11/2023 11:04 AM Report ID: [id number] Exam performed at [facility]. Report signed in external system at [facility] on 05/11/2023 11:04 Reported By: Tina Lopez M.D. (resident) ([id number]) Signed By: Marty Bedolla M.D. (HEFA) Narrative 05/11/2023 11:04 AM EDT RESPONSIBLE DIE CAST DIE MAKER: Marty Bedolla M.D. EXAMINATION: PET CT SKULL [...] oral contrast (Barium Sulfate Suspension 2.1% w/v) [id number]-[id number] CT and PET images were obtained from the skull base to mid thigh. The non-contrast CT scans were used for attenuation correction and localization. Images were acquired on a [employer]-ST BGO-crystal PET/CT scanner, using 3D acquisition. Transaxial, [...] Note Marty Bedolla MD - 05/11/2023 RESPONSIBLE DIE CAST DIE MAKER: Marty Bedolla M.D. EXAMINATION: PET CT SKULL [...] diluted oral contrast (BariumSulfate Suspension 2.1% w/v) [id number]-tlrmljkx CT and PET images were obtained from the skull base to midthigh. The non-contrast CT scans were used for attenuation correction andlocalization. Images were acquired on a [employer]-ST BGO-crystal PET/CT scanner,using 3D acquisition. Transaxial, [...] interpretation. Dictated: 05/11/2023 11:04 AM Report ID: [id number] Exam performed at [facility]. Report signed in external system at [facility] on 311:04 Reported By: Tina Lopez M.D. (resident) ([id number]) Signed By: Marty Bedolla M.D. 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
[2025-07-09 15:43] VITALS: BP 100/62; PULSE 61; RESP 18; TEMP 36.8; O2SAT 93
[2025-07-09 16:00] VITALS: BP 101/62; PULSE 82; RESP 18; TEMP 36.8; O2SAT 93
[2025-07-09 20:00] VITALS: BP 120/79; PULSE 78; RESP 18; TEMP 36.2; O2SAT 94
[2025-07-09 23:16] VITALS: BP 97/65; PULSE 58; RESP 18; TEMP 36.4; O2SAT 92
[2025-07-10 03:02] VITALS: BP 99/51; PULSE 67; RESP 18; TEMP 36.1; O2SAT 91
--- NOTE | 2025-07-10 06:00 | ECG_ITS ---
Test Reason : QTc monitor Blood Pressure : */* mmHG Vent. Rate : 66 BPM Atrial Rate : 66 BPM P-R Int : 228 ms QRS Dur : 98 ms QT Int : 432 ms P-R-T Axes : 55 34 46 degrees QTcB Int : 452 ms Sinus rhythm with 1st degree A-V block Possible Anterior infarct (cited on or before 09-Jul-2025) Abnormal ECG When compared with ECG of 09-Jul-2025 12:55, SD interval has increased Referred By: Thuy [place] Electronically Signed By: NATHANIEL ALEXANDER
[2025-07-10 07:45] VITALS: BP 120/56; PULSE 67; RESP 20; TEMP 36.7; O2SAT 92
[2025-07-10] MEDS: 0.9 % Sodium Chloride Flush 3 ML SYRINGE IVFLUSH (08:07)
--- NOTE | 2025-07-10 08:51 | MHC.CM.PN ---
Addendum entered by Vicky Pollack 07/10/25 08:58: Patient obtains her Methadone from [facility] in [facility]. Original Note: CM met with Patient at bedside and addressed IMM with her, providing Patient with the original and a copy has been placed on the chart. Patient is from [facility]/ and returning there (pending Care Team Consult) VS home with new CCA services is the tentative plan. CM has initiated and will followf or dc planning. Patient lives in a house with her and uses a cane to assist with mobility. Patient's Daughter/Mike is the HCP and the PCP is Dr. Jyothi Rowell in [place], [place]. If Patient were to dc to home, she would need assist with transport. Initialized on 07/10/25 08:45 - END OF NOTE
--- NOTE | 2025-07-10 10:07 | P.PNADD_ITS ---
Subjective Subjective Date of Service: 07/10/25 Reason For Visit: methadone overdose Interim History: Patient seen in follow up for accidental methadone overdose (received 150mg instead of ordered 70mg) Today, patient is awake, alert, bright affect, engaged in interview. She reports feeling a little groggy still, but better . She is eager to discharge home. BP, HR and 02 all wnl and no need for supplemental 02. Review of Systems Acute medical concerns: Yes Review of Systems Constitutional: Reports as per HPI and Reports no additional constitutional complaints Mental Status Exam Mental Status Exam Patient Appearance: Well Grooomed and Appropriate Level of Consciousness: Awake, Appropriate and Alert Patient Behavior: Appropriate, Talkative and Cooperative Affect Description: Calm Speech Pattern: Clear Thought Process: Intact Thought Content: positive for Intact Judgement: Good Diagnostics Vital Signs (24Hr): Vital Signs - 24 hr 07/09/25 12:58 07/09/25 15:43 07/09/25 16:00 Temperature 98.0 F 98.3 F 98.3 F Pulse Rate 70 61 82 Respiratory Rate 17 18 18 Blood Pressure 98/60 100/62 101/62 Pulse Oximetry 93 93 93 Oxygen Delivery Method Nasal Cannula Nasal Cannula Nasal Cannula Oxygen Flow Rate 2 2 2 07/09/25 20:00 07/09/25 23:16 07/10/25 03:02 Temperature 97.1 F 97.6 F 97.0 F Pulse Rate 78 58 67 Respiratory Rate 18 18 18 Blood Pressure 120/79 97/65 99/51 L Pulse Oximetry 94 92 91 L Oxygen Delivery Method Nasal Cannula Nasal Cannula Nasal Cannula Oxygen Flow Rate 1 1 1 07/10/25 07:45 Temperature 98.0 F Pulse Rate 67 Respiratory Rate 20 Blood Pressure 120/56 L Pulse Oximetry 92 Oxygen Delivery Method Room Air Oxygen Flow Rate Labs 07/09/25 12:28 07/09/25 13:17 Labs: Laboratory Results - last 48 hr 07/09/25 07/09/25 12:28 13:17 WBC 5.3 RBC 4.73 Hgb 9.6 L Hct 32.2 L MCV 68.1 L MCH 20.3 L MCHC 29.8 L RDW 16.4 H Plt Count 332 D MPV 9.1 L Immature Gran % (Auto) 1.1 H Neut % (Auto) 61.6 Lymph % (Auto) 24.4 Yell % (Auto) 9.2 Eos % (Auto) 2.4 Baso % (Auto) 1.3 Lymph # (Auto) 1.3 Yell # (Auto) 0.5 Eos # (Auto) 0.1 Baso # (Auto) 0.1 Abs Immat Gran (auto) 0.06 H Absolute Neuts (auto) 3.3 Absolute Nucleated RBC 0.050 H Nucleated RBC % (auto) 0.9 H Sodium 138 Potassium 4.4 Chloride 104 Carbon Dioxide 27 Anion Gap 11 L BUN 31 H Creatinine 1.19 Estim Creat Clear Calc TNP Estimated GFR 46 Random Glucose 85 Calcium 9.2 D Magnesium 1.9 Total Bilirubin 0.4 AST 22 ALT 14 Alkaline Phosphatase 72 Total Protein 8.0 Albumin 4.4 Medications Medications Current Medications Acetaminophen (Acetaminophen 325 Mg Tablet) 650 mg PO Q6H PRN PRN Reason: Pain, Mild 1-3,fever,headache Al Hydroxide/Mg Hydroxide (Magnesium Hydrox/Alum Hydrox 30 Ml Oral.Susp) 30 ml PO Q4H PRN PRN Reason: Heartburn Apixaban (Apixaban 5 Mg Tablet) 5 mg PO BID [facility] Last Admin: 07/10/25 08:00 Dose: 5 mg Calcium Carbonate (Calcium Carbonate 750 Mg Tab.Chew) 750 mg PO Q4H PRN PRN Reason: Heartburn Cephalexin HCl (Cephalexin 500 Mg Capsule) 500 mg PO Q6H [facility] Stop: 07/12/25 18:29 Last Admin: 07/10/25 06:27 Dose: 500 mg Clonidine HCl (Clonidine Hcl 0.1 Mg Tablet) 0.1 mg PO Q4H PRN; Protocol PRN Reason: nausea/vomiting Docusate Sodium (Docusate Sodium 100 Mg Capsule) 100 mg PO BID [facility] Last Admin: 07/10/25 08:00 Dose: 100 mg Doxycycline Monohydrate (Doxycycline Monohydrate 100 Mg Capsule) 100 mg PO Q12H [facility] Stop: 07/12/25 20:59 Last Admin: 07/10/25 08:00 Dose: 100 mg Hydrocortisone (Hydrocortisone 2.5 % Rectal Cr 30 Gm Tube) 1 appl DC BID PRN PRN Reason: hemorroids Levothyroxine Sodium (Levothyroxine Sodium 25 Mcg Tablet) 25 mcg PO DAILY@0600 [facility] Last Admin: 07/10/25 06:27 Dose: 25 mcg Magnesium Hydroxide (Milk Of Magnesia 30 Ml Oral.Susp) 30 ml PO DAILY PRN PRN Reason: Constipation Melatonin (Melatonin 3 Mg Tablet) 6 mg PO BEDTIME PRN PRN Reason: Insomnia Naloxone HCl (Naloxone Hcl 0.4 Mg/Ml Vial) 0.1 mg IVPUSH Q2M PRN PRN Reason: Hypoxia, RR <10 Nicotine (Nicotine 21 Mg Patch.Td24) 21 mg TRANSDERMA DAILY PRN PRN Reason: smoking cessation Nicotine Polacrilex (Nicotine Polacrilex 2 Mg Gum) 4 mg BUCCAL Q2H [facility] Last Admin: 07/10/25 07:59 Dose: 4 mg Ondansetron HCl (Ondansetron Hcl 4 Mg/2 Ml Vial) 4 mg IVPUSH Q8H PRN PRN Reason: Nausea and Vomiting Polyethylene Glycol (Polyethylene Glycol 3350 17 Gm Powd.Pack) 17 gm PO DAILY PRN PRN Reason: Constipation Quetiapine Fumarate (Quetiapine Fumarate 300 Mg Tablet) 300 mg PO BEDTIME [facility] Last Admin: 07/09/25 22:16 Dose: 300 mg Sodium Chloride (0.9 % Sodium Chloride Flush 3 Ml Syringe) 3 ml IVFLUSH QSHIFT [facility] Last Admin: 07/10/25 08:07 Dose: 3 ml Allergies Allergies Allergy/AdvReac Type Severity Reaction Status Date / Time No Known Allergies Allergy Verified 07/05/25 08:51 Assessment & Plan Assessment & Plan (1) Opioid use disorder: Status: Acute Code(s): F11.90 - Opioid use, unspecified, uncomplicated Assessment and Plan: * methadone 30mg today * can resume prior dose of 70mg QD tomorrow (07/10) at [facility] * already connected to [facility], will ensure they have notes re: dosing Total time managing care of this patient today __25__ minutes.
[2025-07-10 12:00] VITALS: BP 92/50; PULSE 75; RESP 18; TEMP 36.3; O2SAT 95
[2025-07-10] MEDS: methADONE HCl 20 MG/2 ML ORAL.CONC 30 MG PO (12:15)
--- NOTE | 2025-07-10 12:30 | P.DS_ITS ---
DS: Providers Provider Date of Service: 07/10/25 Date of admission: 07/09/25 12:45 Date of discharge: 07/10/25 Primary care physician: Unknown Physician Consults: 07/09/25 11:40 Addiction Medicine Provider Routine Consulting Provider: Addiction Covering Reason for consultation: Methadone maintenance patient-unintentional Extra dose DS: Diagnosis Discharge Diagnosis (1) Opioid use disorder: Status: Acute DS: Summary Hospital Course Hospital Course: Reason for Admission Ms. Wilder, a 60-year-old female with a complex psychiatric and medical history, was initially admitted to the inpatient psychiatric unit on 07/02/25 for management of severe depression, PTSD, opioid and cocaine use disorders, and recent suicidal ideation following an unintentional fentanyl and cocaine overdose. During her psychiatric admission, she was stabilized on methadone maintenance therapy and Seroquel for mood stabilization. On 07/09/25, she was transferred to the medical service for monitoring after receiving a higher than intended dose of methadone. Hospital Course Psychiatric Admission (07/02/25 ? 07/09/25) * Presenting symptoms:?Severe depression, passive suicidal ideation, opioid and cocaine withdrawal, and history of trauma. She was stabilized on methadone, with gradual titration, and Seroquel for mood symptoms. * Medical issues addressed:?Hypothyroidism (TSH 58.63, undetectable free T4; started on levothyroxine 25 mcg daily), anemia, and bilateral forearm cellulitis (treated with doxycycline and cephalexin). * Psychiatric course:?Mood and withdrawal symptoms improved with treatment. No further suicidal or homicidal ideation. Patient engaged in care, future- oriented, and agreed to outpatient follow-up. Medical Admission (07/09/25 ? 07/10/25) * Reason for transfer:?Received a higher than intended dose of methadone (150 mg instead of 70 mg) and required close monitoring for potential opioid toxicity. * Management: * Continuous telemetry and oximetry monitoring. * Serial vital signs and neurological checks. * Supplemental oxygen as needed for mild, transient hypoxemia. * EKG and laboratory monitoring (no significant arrhythmias or electrolyte disturbances). * Narcan available PRN for respiratory depression (not required). * Consulted with toxicology for monitoring recommendations. * Clinical course:?Patient remained hemodynamically stable throughout her stay. She experienced mild drowsiness and transient hypoxemia, which resolved without intervention. No further complications were observed. Psychiatry and addiction medicine teams were involved and agreed with discharge planning. Pertinent Laboratory and Diagnostic Data * CBC:?Mild microcytic anemia (Hgb 9.6, MCV 68.1). * Renal function:?Creatinine 1.19, BUN 31 (mildly elevated, stable). * Electrolytes:?Within normal limits. * TSH:?58.63 (on levothyroxine). * EKG:?Baseline QTc 411 ms, no significant changes during admission. Discharge Medications * Methadone:?Hold for 24 hours post-event; resume maintenance dose (70 mg daily) at outpatient treatment program per addiction medicine recommendations. * Quetiapine (Seroquel):?300 mg at bedtime. * Levothyroxine:?25 mcg daily. * Apixaban (Eliquis):?5 mg BID for history of pulmonary embolism. * Cephalexin and doxycycline:?Continue to complete course for cellulitis. * Other PRN medications:?Acetaminophen, magnesium/aluminum hydroxide, nicotine replacement, melatonin, ondansetron, docusate, polyethylene glycol, hydrocortisone cream. Discharge Condition * Awake, alert, and oriented. * Vital signs stable and within normal limits. * No respiratory distress or hypoxemia. * Mood improved, no suicidal or homicidal ideation. * Engaged in discharge planning and aware of medication regimen. Follow-Up and Recommendations * Addiction treatment:?Resume methadone maintenance at her outpatient program; program has been notified of recent events and current dosing. * Psychiatric care:?Continue outpatient follow-up with psychiatry and therapy as scheduled. * Primary care:?Follow up within 1 week for ongoing management of hypothyroidism, anemia, and cancer surveillance. 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 * Wound care:?Monitor forearm sites for signs of infection; complete antibiotics as prescribed. * Laboratory monitoring:?Repeat TSH and free T4 in 4?6 weeks. * Safety:?Patient has a safety plan and is aware of when to seek emergency care. Hospital Course Summary During her hospitalization, Ms. Wilder was closely monitored following an episode of receiving a higher than intended dose of methadone. She remained clinically stable throughout, with no evidence of significant respiratory or cardiac compromise. Her psychiatric and addiction medicine teams were involved in her care and support her discharge. She is aware of the events during her hospitalization and is agreeable to the discharge plan. Time Attestation Discharge Coordination Time (in mins): 15 Quality: Safe Use of Opioids Does Pt have an Active Cancer Diagnosis on the Problem List?: No Quality: Stroke Does the patient have a stroke diagnosis?: No Physical Exam Exam: Exam: General: A&O x3, oriented to time place person and situation, comfortable, no pain Cardiac: S1, S2 auscultated with no S3/4, no MRG. Well perfused. Respiratory: Normal breath sounds auscultated throughout all lung zones, without wheezing, rales. Normal rate. GI/ : No abdominal pain on palpation, no masses or distentions. MSK: Normal ambulation without pain at bony prominences or musculature Neurological: Normal neurological examination on overview, without obvious CN II-XII abnormalities. Vital Signs: Vital Signs: Last Vital Signs Temp 97.4 F 07/10/25 12:00 Pulse 75 07/10/25 12:00 Resp 18 07/10/25 12:00 BP 92/50 L 07/10/25 12:00 Pulse Ox 95 07/10/25 12:00 O2 Del Method Room Air 07/10/25 12:00 O2 Flow Rate 1 07/10/25 03:02 DS: Data Data Completed and Pending Labs on day of discharge: Laboratory Results - last 24 hr 07/09/25 07/09/25 12:28 13:17 WBC 5.3 RBC 4.73 Hgb 9.6 L Hct 32.2 L MCV 68.1 L MCH 20.3 L MCHC 29.8 L RDW 16.4 H Plt Count 332 D MPV 9.1 L Immature Gran % (Auto) 1.1 H Neut % (Auto) 61.6 Lymph % (Auto) 24.4 [place] % (Auto) 9.2 Eos % (Auto) 2.4 Baso % (Auto) 1.3 Lymph # (Auto) 1.3 [place] # (Auto) 0.5 Eos # (Auto) 0.1 Baso # (Auto) 0.1 Abs Immat Gran (auto) 0.06 H Absolute Neuts (auto) 3.3 Absolute Nucleated RBC 0.050 H Nucleated RBC % (auto) 0.9 H Sodium 138 Potassium 4.4 Chloride 104 Carbon Dioxide 27 Anion Gap 11 L BUN 31 H Creatinine 1.19 Estim Creat Clear Calc TNP Estimated GFR 46 Random Glucose 85 Calcium 9.2 D Magnesium 1.9 Total Bilirubin 0.4 AST 22 ALT 14 Alkaline Phosphatase 72 Total Protein 8.0 Albumin 4.4 Discharge Plan Discharge Anticipated Discharge Date/Time: 07/10/25 12:36 Patient Disposition: Home, Self-Care Discharge Diagnosis: inpatient psychiatric admission c/b accidental methadone overdose requiring observation Referrals: Physician,Unknown J [Primary Care Provider, Medical] - 1 Week Discharge Medications: Continued Eliquis 5 mg tablet 5 mg PO BID doxycycline monohydrate 100 mg Capsule 100 mg PO Q12H Qty: 0 0RF cephalexin 500 mg Capsule 500 mg PO Q6H Qty: 0 0RF nicotine 21 mg/24 hr Patch 24 Hour 21 mg transdermal DAILY PRN (Reason: smoking cessation) 28 Days Qty: 28 0RF nicotine (polacrilex) 4 mg gum 4 mg buccal Q2H 30 Days Qty: 100 0RF clonidine HCl 0.1 mg Tablet 0.1 mg PO Q4H PRN (Reason: nausea/vomiting) 30 Days Qty: 90 0RF Protocol: Hold for SBP< HOLD for SBP < : 90 quetiapine 300 mg Tablet 300 mg PO BEDTIME 30 Days Qty: 30 0RF methadone [Methadose] 10 mg/mL Concentrate 60 mg PO DAILY@0800 Qty: 0 0RF Rx Instructions: Partial Fill upon patient request. docusate sodium 100 mg Capsule 100 mg PO BID 30 Days Qty: 60 0RF levothyroxine 25 mcg Tablet 25 mcg PO DAILY@0600 30 Days Qty: 30 0RF hydrocortisone [Proctozone-HC] 2.5 % Cream With Perineal Applicator 1 appl MD BID PRN (Reason: hemorroids) Qty: 30 0RF Discharge Orders: Discharge Order (Routine); Ordered 07/10/25 Ordered By: Brian Delgadillo Diet: Advance to usual diet Activity on Discharge: As tolerated Stand Alone Forms: Patient Portal Discharge page Print Language: Unable To Collect Care Plan Goals: As above Health Concerns: As above Plan of Treatment: As above Assessment: Haemodynamically stable and safe for discharge as per psychiatry services. Medically cleared.
--- NOTE | 2025-07-10 13:31 | MHC.CM.PN ---
Patient has been medically cleared for dc to home today, self care. CM has arranged a [facility] to transport Patient to home, today at 2PM. RN & MD are aware.
== END 2025-07-10 14:30 | disposition home or self-care (01) | DRG 918 ==
PROVIDERS: Nurse Practitioner Psychiatric/Mental Health; Admitting Provider Nurse Practitioner Family; Visit Provider Hospitalist
DX: T40.3X1A Poisoning by methadone, accidental (unintentional), initial encounter (principal); F31.81 Bipolar II disorder; F11.20 Opioid dependence, uncomplicated; Y92.239 Unspecified place in hospital as the place of occurrence of the external cause; F17.210 Nicotine dependence, cigarettes, uncomplicated; Z71.6 Tobacco abuse counseling; E03.9 Hypothyroidism, unspecified; C76.0 Malignant neoplasm of head, face and neck; F43.10 Post-traumatic stress disorder, unspecified; D63.0 Anemia in neoplastic disease; Z79.01 Long term (current) use of anticoagulants; Z79.890 Hormone replacement therapy; Z79.899 Other long term (current) drug therapy; Z86.711 Personal history of pulmonary embolism
CPT/HCPCS: 36415; 80053; 83735; 85025; 93005

== ENCOUNTER → 2025-07-09 12:45 | Outpatient (BNV) | payer OTHER, SELFPAY | PROVIDERS: Admitting Provider Nurse Practitioner Family; Visit Provider Nurse Practitioner Psychiatric/Mental Health | DX: F11.90 Opioid use, unspecified, uncomplicated (principal) | CPT/HCPCS: 99223; 99232 ==

== ENCOUNTER → 2025-07-09 12:45 | Outpatient (BNV) | payer OTHER, SELFPAY | PROVIDERS: Admitting Provider Nurse Practitioner Family; Visit Provider Hospitalist | DX: F11.90 Opioid use, unspecified, uncomplicated (principal) | CPT/HCPCS: 99222; 99239 ==